=== PATIENT | female | born 1940 | race Caucasian/White ===

== ENCOUNTER 2016-06-24 14:26 | Inpatient (IN) | payer BC, OTHER ==
[2016-06-24 15:25] LABS: BASOPHIL 0.3 % (0-2.0); MCH 25.5 pg (25.7-33.7); MCHC 31.4 g/dl (32.0-36.0); MEAN CELL VOLUME 81.3 fl (80-96); MEAN PLT VOLUME 7.7 fl (7.5-11.1); NEUTROPHILS 66.2 % (42.8-82.8); PLATELET COUNT 259 K/MM3 (134-434); RDW 14.5 % (11.6-15.6); WHITE BLOOD COUNT 5.4 K/mm3 (4.0-10.0)
[2016-06-24 15:33] LABS: ALBUMIN 3.3 g/dl (3.5-5.0); CALCIUM 8.9 mg/dl (8.4-10.2); CPK(DFH) 29 IU/L (26-140); CREATININE 4.2 mg/dl (0.6-1.3); MAGNESIUM 2.1 mg/dL (1.8-2.4); TOT PROT 6.5 g/dl (6.4-8.3)
--- NOTE | 2016-06-24 15:44 | PDOC ---
History of Present Illness - General History Source: Patient, Family, Old Records Exam Limitations: No Limitations - History of Present Illness Initial Comments: 06/24/16 16:31 The patient is a 75 year old female with a significant past medical history of HTN & Right UPJO w/ atrophic kidney (s/p Stent placement on 02/11 and removal ), who presents to the emergency department today for further evaluation of elevated creatine s/p bloodwork. The patient notes that after stent removal she experienced right sided discomfort that has since resolved. The patient also notes that her elevated creatine is accompanied by increased leg weakness, nausea and vomiting since yesterday. She notes sick contact with a family member who had flu. She states after her sick contact she had some nasal and chest congestion but denies fever. The patient denies fever, chills, and sweats. The patient denies nausea, vomiting, and diarrhea. The patient denies chest pain, cough, and shortness of breath. PAST MEDICAL HISTORY: As per HPI PAST SURGICAL HISTORY: Appendectomy, Cholecystectomy FAMILY HISTORY: HTN, Kidney failure. 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) CVA: No COPD: No CHF: No Dementia: No Diabetes: No GI Disorders: No Disorders: Yes (stent to rt urethra) HTN: Yes Hypercholesterolemia: No Liver Disease: No Seizures: No Thyroid Disease: Yes - Surgical History Appendectomy: Yes Cholecystectomy: Yes - Psycho/Social/Smoking Cessation Hx Anxiety: No Suicidal Ideation: No Smoking History: Former smoker Have you smoked in the past 12 months: No If you are a former smoker, when did you quit?: 2005 Information on smoking cessation initiated: No Hx Alcohol Use: No Drug/Substance Use Hx: No Substance Use Type: None Hx Substance Use Treatment: No <Alvino Castillo Cora - Last Filed: 06/24/16 19:21> - Past Medical History Allergies/Adverse Reactions: Allergies Allergy/AdvReac Type Severity Reaction Status Date / Time Penicillins Allergy Intermediate rash Verified 06/24/16 14:35 Home Medications: Ambulatory Orders Escitalopram Oxalate [Lexapro -] 20 mg PO DAILY 02/11/16 Nebivolol HCl [Bystolic] 10 mg PO DAILY tablet 03/04/16 Aspirin [ASA -] 81 mg PO DAILY 04/15/16 Furosemide [Lasix -] 20 mg PO ASDIR 04/15/16 Azithromycin [Zithromax -] 250 mg PO DAILY 06/24/16 Review of Systems - Review of Systems Able to Perform ROS?: Yes Comments:: 06/24/16 16:43 CONSTITUTIONAL: Absent: Fever, Chills, Diaphoresis, Malaise, Loss of Appetite HEENT: Absent: Rhinorrhea, Nasal Congestion, Throat Pain, Throat Swelling, Difficulty Swallowing, Mouth Swelling, Ear Pain, Eye Pain, Visual Changes CARDIOVASCULAR: Absent: Chest Pain, Syncope, Palpitations, Irregular Heart Rate, Lightheadedness , Peripheral Edema RESPIRATORY: Absent: Cough, Shortness of Breath, SOB with Exertion, Orthopnea, Wheezing, Stridor, Hemoptysis GASTROINTESTINAL: Present: Nausea, Vomiting Absent: Abdominal pain, Abdominal Distension, Diarrhea, Constipation, Melena, Hematochezia GENITOURINARY: Absent: Dysuria, Frequency, Urgency, Hesitancy, Flank Pain, Genital Pain MUSCULOSKELETAL: Present: Increased leg weakness Absent: Myalgia, Arthralgia, Joint Swelling, Back pain, Neck Pain SKIN: Absent: Rash, Itching, PalloR HEMEATOLOGIC/IMMUNOLOGIC: Absent: Easy Bleeding, Easy Bruising, Lymphadenopathy, Frequent infections ENDOCRINE: Absent: Unexplained Weight Gain, Unexplained Weight Loss, Heat Intolerance, Cold Intolerance NEUROLOGIC: Absent: Headache, Focal Weakness, Paresthesias, Vertigo, Lightheadedness, Unsteady Gait, Seizure, Mental Status Changes, Incontinence PSYCHIATRIC: Absent: Anxiety, Depression <John Navarrete - Last Filed: 06/24/16 17:51> *Physical Exam - Vital Signs Last Vital Signs Temp Pulse Resp BP Pulse Ox 97.7 F 77 16 148/69 98 06/24/16 14:31 06/24/16 14:31 06/24/16 14:31 06/24/16 14:31 06/24/16 14:31 - Physical Exam Comments: 06/24/16 16:38 GENERAL: The patient is awake, alert, and fully oriented, in no acute distress. HEAD: Normal with no signs of trauma. EYES: Pupils equal, round and reactive to light, extraocular movements intact, sclera anicteric, conjunctiva clear. ENT: Ears normal, nares patent, oropharynx clear without exudates. Moist mucous membranes. NECK: Normal range of motion, supple without lymphadenopathy, JVD, or masses. LUNGS: Breath sounds equal, clear to auscultation bilaterally. No wheezes, and no crackles. HEART: Bradycardia, Regular rhythm, normal S1 and S2 without murmur, rub or gallop. ABDOMEN: Soft, nontender, normoactive bowel sounds. No guarding, no rebound. No masses. EXTREMITIES: Normal range of motion, no edema. No clubbing or cyanosis. No cords , erythema, or tenderness. NEUROLOGICAL: Cranial nerves II through XII grossly intact. Normal speech, normal gait. PSYCH: Normal mood, normal affect. SKIN: Warm, Dry, normal turgor, no rashes or lesions noted. <John Navarrete - Last Filed: 06/24/16 17:51> - Vital Signs Last Vital Signs Temp Pulse Resp BP Pulse Ox 97.7 F 77 16 148/69 98 06/24/16 14:31 06/24/16 14:31 06/24/16 14:31 06/24/16 14:31 06/24/16 14:31 <Alvino Castillo - Last Filed: 06/24/16 19:21> ED Treatment Course - LABORATORY CBC & Chemistry Diagram: 06/24/16 15:00 06/24/16 15:00 - ADDITIONAL ORDERS Additional order review: Laboratory Results 06/24/16 06/24/16 06/24/16 15:35 15:00 15:00 Sodium 135 L Potassium 3.9 Chloride 107 Carbon Dioxide 18 L Anion Gap 10 BUN 51 H Creatinine 4.2 H Creat Clearance w eGFR 10.37 Random Glucose 125 H Calcium 8.9 Magnesium 2.1 Total Bilirubin 0.3 AST 20 ALT 12 Alkaline Phosphatase 74 Creatine Kinase 29 Troponin I < 0.03 L Total Protein 6.5 Albumin 3.3 L Urine Color Yellow Urine Appearance Clear Urine pH 5.5 Ur Specific [place] 1.010 Urine Protein 1+ H Urine Glucose (UA) Negative Urine Ketones Negative Urine Blood Negative Urine Nitrite Negative Urine Bilirubin Negative Urine Urobilinogen 0.2 e.u/dl Ur Leukocyte Esterase Trace 06/24/16 15:00 RBC 3.79 MCV 81.3 MCHC 31.4 L RDW 14.5 MPV 7.7 Neutrophils % 66.2 Lymphocytes % 22.2 Monocytes % 9.3 Eosinophils % 2.0 Basophils % 0.3 - RADIOLOGY Radiograph Interpretation: 06/24/16 16:50 Renal ultrasound. Discussion: Compared to prior examination dated 02/02/2016. Right renal stent removed on 05/31/2016 The right kidney measures 12 cm in sagittal length with interval decrease in the degree of hydronephrosis that remains moderate to marked. Right renal pelvis is dilated measuring 4.8 cm in AP dimension Left kidney measures 7.4 cm in sagittal length with an exophytic cyst in its midportion measuring 2.8 cm in maximum dimension. Impression: Interval decreased right hydronephrosis that remains moderate to marked. Left renal cyst measuring 2.8 cm. <John Navarrete - Last Filed: 06/24/16 17:51> - LABORATORY CBC & Chemistry Diagram: 06/24/16 15:00 06/24/16 15:00 - ADDITIONAL ORDERS Additional order review: Laboratory Results 06/24/16 06/24/16 15:00 15:00 Sodium 135 L Potassium 3.9 Chloride 107 Carbon Dioxide 18 L Anion Gap 10 BUN 51 H Creatinine 4.2 H Creat Clearance w eGFR 10.37 Random Glucose 125 H Calcium 8.9 Magnesium 2.1 AST 20 ALT 12 Alkaline Phosphatase 74 Creatine Kinase 29 Total Protein 6.5 Albumin 3.3 L 06/24/16 15:00 RBC 3.79 MCV 81.3 MCHC 31.4 L RDW 14.5 MPV 7.7 Neutrophils % 66.2 Lymphocytes % 22.2 Monocytes % 9.3 Eosinophils % 2.0 Basophils % 0.3 - RADIOLOGY Radiology Studies Ordered: Category Date Time Status KIDNEY / RENAL US [US] Stat Ultrasound 06/24/16 14:40 Ordered <Alvino Castillo - Last Filed: 06/24/16 19:21> Medical Decision Making - Medical Decision Making 06/24/16 17:45 Dr. Pinzon called. Case discussed. Agreed to admit patient. <John Navarrete - Last Filed: 06/24/16 17:51> - Medical Decision Making 06/24/16 17:36 Patient history of chronic kidney disease, left kidney atrophic, right kidney with hydronephrosis. Patient had stent from several months ago, was removed in early May. Patient now with symptoms of uremia, generalized weakness, nausea, occasional vomiting, poor appetite, and poor sleep. On examination, the patient has no CVA tenderness and no abdominal tenderness. She has no edema. Ultrasound shows recurrent, significant, right hydronephrosis, although slightly less than previously it is still significant. Laboratory workup notable for creatinine elevated to greater than 4. No indications for acute dialysis. Sodium is 135, potassium is normal, mild non- anion gap acidosis. Patient may be treated with bicarbonate repletion. She will also be seen by urology for evaluation for repeat stenting. Impression: Progressive renal failure in the setting of atrophic left kidney and recurrent obstruction of the right kidney. Patient with symptomatic uremia. Patient to be admitted for urological consultation regarding possible repeat stenting. Also for nephrology consultation for progressive renal dysfunction. Patient will be admitted to the hospitalist service. 06/24/16 19:20 <Alvino Castillo - Last Filed: 06/24/16 19:21> *DC/Admit/Observation/Transfer - Attestations Scribe Attestion: 06/24/16 16:51 Documentation prepared by John Navarrete, acting as medical social consultant for Alvino Castillo MD. <John Navarrete - Last Filed: 06/24/16 17:51> - Discharge Dispostion Admit: Yes Decision to Admit order Date/Time: 06/24/16 17:39 Patient to be admitted to the hospitalist service. Consultations with nephrology and urology. Dr. Pinzon contacted and will consult. - Attestations Scribe Attestion: 06/24/16 17:40 The scribe's documentation has been prepared under my direction and personally reviewed by me in its entirety. I have confirmed that the note above accurately reflects all work, treatment, procedures, and medical decision- making performed by me. <Alvino Castillo - Last Filed: 06/24/16 19:21> Diagnosis at time of Disposition: Hydronephrosis due to ureteral stricture, Acute on chronic renal failure - Discharge Dispostion Condition at time of disposition: Fair
[2016-06-24 15:51] LABS: TROPONIN I (DFP) < 0.03 ng/ml (0.03-0.50)
[2016-06-24 15:52] LABS: BILIRUBIN,TOTAL 0.3 mg/dl (0.2-1.0)
--- NOTE | 2016-06-24 15:52 | EKG ---
Test Reason : Blood Pressure : / mmHG Vent. Rate : 054 BPM Atrial Rate : 054 BPM P-R Int : 184 ms QRS Dur : 084 ms QT Int : 428 ms P-R-T Axes : 035 000 053 degrees QTc Int : 405 ms POOR DATA QUALITY, INTERPRETATION MAY BE ADVERSELY AFFECTED SINUS BRADYCARDIA WHEN COMPARED WITH ECG OF 18-APR-2016 09:15, NO SIGNIFICANT CHANGE WAS FOUND Confirmed by MD KARINE, LUCIE ([id number]) on 06/24/2016 3:52:16 PM Referred By: JADON Confirmed By:LUCIE MILTON MD
[2016-06-24 16:19] LABS: PH,URINE 5.5 (4.5-8); URINE APPEARANCE Clear; URINE BILIRUBIN Negative (NEGATIVE); URINE BLOOD Negative (NEGATIVE); URINE GLUCOSE (UA) Negative (NEGATIVE); URINE KETONE Negative (NEGATIVE); URINE LEUK ESTERASE Trace (NEGATIVE); URINE NITRITE Negative (NEGATIVE); URINE UROBILINOGEN 0.2 E.U/dl (0.2-1.0)
[2016-06-24 16:20] LABS: URINE COLOR YELLOW; URINE PROTEIN 1+ (NEGATIVE)
[2016-06-24 16:51] LABS: URINE BACTERIA MODERATE /hpf (NEGATIVE); URINE RBC 0-2 /hpf (0-3)
[2016-06-24] MEDS ORDERED: SODIUM CHLORIDE 1,000 ML IV SCH (17:45)
[2016-06-24 18:56] VITALS: BMI 26.4
--- NOTE | 2016-06-24 22:24 | HP ---
CHIEF COMPLAINT: elevated creatinine PCP: [facility] urology: Jeromy HISTORY OF PRESENT ILLNESS: This is a 75 year old female with a past medical history of HTN, R UPJ obstruction s/p stent placement 02/12/16 removal 05/31/15, L atrophic kidney, anemia, asthma, AV leak, congenital "hole in heart", hypothyroidism who presents to the ED from her PMD office with elevated creatinine. Today was her first lab test since the stent was removed. She states that she gets right flank pain "off and on" but none now. Denies any dysuria, frequency or abdominal pain. Pt started on zithromax yesterday for URI. Reports productive cough, whitish phlegm. Denies fever, SOB, chest pain. ER course was notable for: (1) Cr 4.2 (2) u/a with tr leukesterase and moderate bacteria Recent Travel: pt denies PAST MEDICAL HISTORY: HTN, R UPJ obstruction s/ stent placement 02/12/16, exchange 05/16/16, removal 05/31/15 L atrophic kidney anemia asthma AV leak congenital "hole in heart" hypothyroidism PAST SURGICAL HISTORY: appendectomy cholecystectomy Social History: Smoking: Quit 2005, smoked 40 years, 1ppd Alcohol: occ wine or beer on special occasions Drugs: pt denies Family History: mother , s/p fall father , cirrhosis sibling , ESRD and heart disease Allergies Penicillins Allergy (Intermediate, Verified 06/24/16 14:35) rash HOME MEDICATIONS: 3 Medication Instructions Recorded Escitalopram Oxalate [Lexapro -] 20 mg PO DAILY 02/11/16 Nebivolol HCl [Bystolic] 10 mg PO DAILY tablet 03/04/16 Aspirin [ASA -] 81 mg PO DAILY 04/15/16 Furosemide [Lasix -] 20 mg PO ASDIR 04/15/16 Azithromycin [Zithromax -] 250 mg PO DAILY 06/24/16 REVIEW OF SYSTEMS CONSTITUTIONAL: Absent: fever, chills, diaphoresis, generalized weakness, malaise, loss of appetite, weight change HEENT: Absent: rhinorrhea, nasal congestion, throat pain, throat swelling, difficulty swallowing, mouth swelling, ear pain, eye pain, visual changes CARDIOVASCULAR: Absent: chest pain, syncope, palpitations, irregular heart rate, lightheadedness , peripheral edema RESPIRATORY: Present: cough Absent: shortness of breath, dyspnea with exertion, orthopnea, wheezing, stridor , hemoptysis GASTROINTESTINAL: Absent: abdominal pain, abdominal distension, nausea, vomiting, diarrhea, constipation, melena, hematochezia GENITOURINARY: Present: flank pain Absent: dysuria, frequency, urgency, hesitancy, hematuria, genital pain MUSCULOSKELETAL: Absent: myalgia, arthralgia, joint swelling, back pain, neck pain SKIN: Absent: rash, itching, pallor HEMATOLOGIC/IMMUNOLOGIC: Absent: easy bleeding, easy bruising, lymphadenopathy, frequent infections ENDOCRINE: Absent: unexplained weight gain, unexplained weight loss, heat intolerance, cold intolerance NEUROLOGIC: Absent: headache, focal weakness or paresthesias, dizziness, unsteady gait, seizure, mental status changes, bladder or bowel incontinence PSYCHIATRIC: Absent: anxiety, depression, suicidal or homicidal ideation, hallucinations. PHYSICAL EXAMINATION Vital Signs - 24 hr 3 06/24/16 06/24/16 06/24/16 14:31 17:45 18:28 Temperature 97.7 F 98.6 F Pulse Rate 77 54 L Pulse Rate [ 80 Apical] Respiratory 16 18 18 Rate Blood Pressure 148/69 162/65 Blood Pressure 140/64 [Arm] O2 Sat by Pulse 98 98 97 Oximetry (%) 3 06/24/16 22:33 Temperature 97.9 F Pulse Rate 50 L Pulse Rate [ Apical] Respiratory 18 Rate Blood Pressure 159/57 Blood Pressure [Arm] O2 Sat by Pulse 98 Oximetry (%) GENERAL: Awake, alert, and fully oriented, in no acute distress. HEAD: Normal with no signs of trauma. EYES: Pupils equal, round and reactive to light, extraocular movements intact, sclera anicteric, conjunctiva clear. No lid lag. EARS, NOSE, THROAT: Ears normal, nares patent, oropharynx clear without exudates. Moist mucous membranes. NECK: Normal range of motion, supple without lymphadenopathy, JVD, or masses. LUNGS: Breath sounds equal, clear to auscultation bilaterally. No crackles. No accessory muscle use. + expiratory wheeze, R>L HEART: Regular rate and rhythm, normal S1 and S2 without murmur, rub or gallop. ABDOMEN: Soft, nontender, not distended, normoactive bowel sounds, no guarding, no rebound, no masses. No hepatomegaly or splenomegaly. No CVAT MUSCULOSKELETAL: Normal range of motion at all joints. No bony deformities or tenderness. No CVA tenderness. UPPER EXTREMITIES: 2+ pulses, warm, well-perfused. No cyanosis. No clubbing. Cap refill <2 seconds. No peripheral edema. LOWER EXTREMITIES: 2+ pulses, warm, well-perfused. No calf tenderness. No peripheral edema. NEUROLOGICAL: Cranial nerves II-XII intact. Normal speech. Normal gait. PSYCHIATRIC: Cooperative. Good eye contact. Appropriate mood and affect. SKIN: Warm, dry, normal turgor, no rashes or lesions noted. Laboratory Results - last 24 hr 3 06/24/16 06/24/16 06/24/16 15:00 15:00 15:00 WBC 5.4 RBC 3.79 Hgb 9.7 L Hct 30.8 L MCV 81.3 MCHC 31.4 L RDW 14.5 Plt Count 259 MPV 7.7 Neutrophils % 66.2 Lymphocytes % 22.2 Monocytes % 9.3 Eosinophils % 2.0 Basophils % 0.3 Sodium 135 L Potassium 3.9 Chloride 107 Carbon Dioxide 18 L Anion Gap 10 BUN 51 H Creatinine 4.2 H Creat Clearance w eGFR 10.37 Random Glucose 125 H Calcium 8.9 Magnesium 2.1 Total Bilirubin 0.3 AST 20 ALT 12 Alkaline Phosphatase 74 Creatine Kinase 29 Troponin I < 0.03 L Total Protein 6.5 Albumin 3.3 L Urine Color Urine Appearance Urine pH Ur Specific [place] Urine Protein Urine Glucose (UA) Urine Ketones Urine Blood Urine Nitrite Urine Bilirubin Urine Urobilinogen Ur Leukocyte Esterase Urine RBC Urine WBC Ur Epithelial Cells Urine Bacteria 3 Urine Color Yellow 06/24/16 15:35 Urine Appearance Clear 06/24/16 15:35 Urine pH 5.5 (4.5-8) 06/24/16 15:35 Ur Specific [place] 1.010 (1.005-1.025) 06/24/16 15:35 Urine Protein 1+ (NEGATIVE) H 06/24/16 15:35 Urine Glucose (UA) Negative (NEGATIVE) 06/24/16 15:35 Urine Ketones Negative (NEGATIVE) 06/24/16 15:35 Urine Blood Negative (NEGATIVE) 06/24/16 15:35 Urine Nitrite Negative (NEGATIVE) 06/24/16 15:35 Urine Bilirubin Negative (NEGATIVE) 06/24/16 15:35 Ur Leukocyte Esterase Trace (NEGATIVE) 01/27/17 15:35 Urine RBC 0-2 /hpf (0-3) 06/24/16 15:35 Urine WBC 10-15 (3-5) 06/24/16 15:35 Ur Epithelial Cells Few /HPF 06/24/16 15:35 Urine Bacteria Moderate /hpf (NEGATIVE) 06/24/16 15:35 Renal ultrasound: Impression: Interval decreased right hydronephrosis that remains moderate to marked. Left renal cyst measuring 2.8cm. ECG: sinus margot 54, QTC 409. No acute ST/T changes. ASSESSMENT/PLAN: 75 year old female with a past medical history of HTN, R UPJ obstruction s/ stent placement 02/12/16 removal 05/31/15, L atrophic kidney, anemia, asthma, AV leak, congenital "hole in heart", hypothyroidism who presents to the ED from her PMD office with elevated creatinine. Acute kidney failure - cr 4.2, baseline in 2s since diagnosis of R UPJO - gentle IV hydration, repeat BMP in am - renal consult R UPJ obstruction - urology consult in AM - + bacturia noted, will give ceftriaxone 1g x 1, reassess need to continue in am per urology URI/acute bronchitis - albuterol nebs - cont zpak, 3 more doses. HTN - cont home bystolic, lasix hypothyroid - cont home synthroid FEN - NS @100cc/hr - repeat BMP in am - low sodium diet as tolerated DVT PPX - defer heparin as pt will likely need stent placement. start heparin tomorrow if not undergoing in am Dispo: pt currently requires inpatient care. Visit type - Emergency Visit Emergency Visit: Yes ED Registration Date: 06/24/16 Care time: The patient presented to the Emergency Department on the above date and was hospitalized for further evaluation of their emergent condition. - New Patient This patient is new to me today: Yes Date on this admission: 06/24/16 - Critical Care Critical Care patient: No
[2016-06-24] MEDS ORDERED: CEFTRIAXONE 50 ML IVPB ONE (23:30)
[2016-06-24] MEDS: ALBUTEROL SO4 0.083% IH SOL 2.5 MG/3 ML VIAL.NEB. NEB SCH (23:50)
[2016-06-25] MEDS: ALBUTEROL SO4 0.083% IH SOL 2.5 MG/3 ML VIAL.NEB. NEB SCH (06:27)
[2016-06-25] MEDS: LEVOTHYROXINE NA 50 MCG TABLET (FP) PO SCH (06:28)
[2016-06-25 08:36] LABS: CALCIUM 8.6 mg/dl (8.4-10.2); CREATININE 3.9 mg/dl (0.6-1.3); PHOSPHOROUS 3.6 mg/dl (2.5-4.6)
[2016-06-25 08:48] LABS: BASOPHIL 0.3 % (0-2.0); EOSINOPHIL 2.1 % (0-4.5); MCH 25.3 pg (25.7-33.7); MCHC 31.7 g/dl (32.0-36.0); MEAN CELL VOLUME 79.9 fl (80-96); MEAN PLT VOLUME 7.6 fl (7.5-11.1); NEUTROPHILS 61.7 % (42.8-82.8); PLATELET COUNT 229 K/MM3 (134-434); RDW 14.4 % (11.6-15.6); WHITE BLOOD COUNT 4.9 K/mm3 (4.0-10.0)
--- NOTE | 2016-06-25 09:57 | PN ---
Progress Note, Physician Chief Complaint: Renal Consultation Report The patient is a 75 year old female with a significant past medical history of HTN CKD with right UPJO and left atrophic kidney (s/p R Stent placement on and removal 05/31/16), and Valvular Heart Disease who was referred to ED by PMD, Dr Alicia for worsening azotemia associated with some right flank pain. Asked to evaluate for worsening renal function test. Pt was on Losartan and Lasix prior to admission Renal US shows a persistent Right hydronephrosis though better than in the past. Pt was not on NSAIDs in the recent past. Recently started on Z Will for URI. Had a bacteremia froma UTI in the recent past No diarrhea but had some N/V a few days ago The patient denies fever and sweats but had some chills PAST SURGICAL HISTORY: Appendectomy, Cholecystectomy, Removal of a Benign Right Breast Mass FAMILY HISTORY: HTN, Kidney failure. SOCIAL HISTORY: Former smoker ALLERGIES: Penicillin - Current Medication List Current Medications: Active Medications Albuterol Sulfate (Ventolin 0.083% Nebulizer Soln -) 1 amp NEB QIDR [facility] Last Admin: 06/25/16 06:27 Dose: 1 amp Azithromycin (Zithromax -) 250 mg PO DAILY [facility] Stop: 06/27/16 10:01 Escitalopram Oxalate (Lexapro -) 20 mg PO DAILY [facility] Sodium Chloride (Normal Saline -) 1,000 mls @ 100 mls/hr IV ASDIR [facility] Last Admin: 06/24/16 17:53 Dose: 100 mls/hr Levothyroxine Sodium (Synthroid -) 50 mcg PO ACBK [facility] Last Admin: 06/25/16 06:28 Dose: 50 mcg Nebivolol (Bystolic -) 10 mg PO DAILY [facility] Pantoprazole Sodium (Protonix -) 40 mg PO DAILY [facility] - Objective Vital Signs: Vital Signs Temperature 98.3 F 06/25/16 06:00 Pulse Rate 60 06/25/16 06:00 Respiratory Rate 19 06/25/16 06:00 Blood Pressure 159/60 06/25/16 06:00 O2 Sat by Pulse Oximetry (%) 93 L 06/25/16 06:00 Constitutional: Yes: No Distress Cardiovascular: Yes: Murmur (Systolic Murmur), S1, S2. No: JVD Respiratory: Yes: CTA Bilaterally, Rhonchi Gastrointestinal: Yes: Normal Bowel Sounds. No: Tenderness, Rebound Genitourinary: No: Bladder Distention Edema: No Neurological: Yes: Alert, Oriented Labs: CBC, BMP 06/25/16 07:35 06/25/16 07:35 Laboratory Tests 04/15/16 04/20/16 06/24/16 09:45 06:20 15:00 Creatinine 2.7 H 2.5 H 4.2 H 06/25/16 07:35 Creatinine 3.9 H Laboratory Tests 06/24/16 15:35 Urine Color Yellow Urine Appearance Clear Urine pH 5.5 Ur Specific [place] 1.010 Urine Protein 1+ H Urine Glucose (UA) Negative Urine Ketones Negative Urine Blood Negative Urine Nitrite Negative Urine Bilirubin Negative Urine Urobilinogen 0.2 e.u/dl Ur Leukocyte Esterase Trace Urine RBC 0-2 Urine WBC 10-15 Ur Epithelial Cells Few Urine Bacteria Moderate - ....Imaging Chest X-ray: Report Reviewed Ultrasound: Report Reviewed EKG: Other (Sinus Bradycardia) Assessment/Plan Impression Acute on CKD in pt that was on ARB, lasix, right hydronephrosis and small left Kidney Pyuria HTN Valvular Heart Disease Anemia microcytic Recent URI in former smoker and Asthma Hypothyroidism Plan Agree with holding the Arb and Lasix for now IVF as ordered UC and urine for Pro/ Cr ratio Urology to see pt Consider lasix Renal Scan if cystoscopy with retrograde pyelogram not jose f to be done May need to add a CCB Anemia w/u as per primary care and if negative to consider adding an TOBIN such as Procrit Rpt labs in am Avoid Nephrotoxic agent such as NSAIDs, Fleet Enemas, IV Contrast etc Bronchodilators CXR if not recently done Discussed with the hospitalist Thank You Will Follow Dr Vasquez
[2016-06-25] MEDS ORDERED: PANTOPRAZOLE 40 MG TABLET (FP) PO SCH (10:00)
[2016-06-25] MEDS ORDERED: ESCITALOPRAM OXALATE 20 MG TABLET (FP) PO SCH (10:00)
[2016-06-25] MEDS ORDERED: AZITHROMYCIN 250 MG TABLET (FP) PO SCH (10:00)
[2016-06-25] MEDS: NEBIVOLOL 10 MG TABLET (FP) PO SCH (10:42)
--- NOTE | 2016-06-25 13:51 | PN ---
Physical Exam: SUBJECTIVE: Patient seen and examined at bedside. OBJECTIVE: Vital Signs Period Temp Pulse Resp BP Sys/Rashid Pulse Ox Last 24 Hr 97.9 F-98.3 F 50-60 18-20 157-159/52-60 93-98 GENERAL: The patient is awake, alert, and fully oriented, in no acute distress. HEAD: Normal with no signs of trauma. EYES: PERRL, extraocular movements intact, sclera anicteric, conjunctiva clear. No ptosis. LUNGS: diffuse expiratory wheezing and rhonchi HEART: Regular rate and rhythm, S1, S2 without murmur, rub or gallop. ABDOMEN: Soft, nontender, nondistended, normoactive bowel sounds, no guarding, no rebound EXTREMITIES: 2+ pulses, warm, well-perfused, no edema. NEUROLOGICAL: Cranial nerves II through XII grossly intact. Normal speech, gait not observed. Laboratory Results - last 24 hr 06/25/16 06/25/16 07:35 07:35 WBC 4.9 RBC 3.45 L Hgb 8.7 L D Hct 27.6 L MCV 79.9 L MCHC 31.7 L RDW 14.4 Plt Count 229 MPV 7.6 Neutrophils % 61.7 Lymphocytes % 26.2 Monocytes % 9.7 Eosinophils % 2.1 Basophils % 0.3 Sodium 136 Potassium 3.9 Chloride 108 H Carbon Dioxide 17 L Anion Gap 11 BUN 48 H Creatinine 3.9 H Random Glucose 93 D Calcium 8.6 Phosphorus 3.6 Magnesium 2.0 Current Medications Generic Name Dose Route Start Last Admin Trade Name Freq PRN Reason Stop Dose Admin Albuterol/Ipratropium 1 amp 06/25/16 14:45 06/25/16 15:56 Duoneb - NEB 1 amp Q6H [facility] Administration Escitalopram Oxalate 20 mg 06/25/16 10:00 06/25/16 10:35 Lexapro - PO 20 mg DAILY [facility] Administration Ceftriaxone Sodium 1 gm/ 50 mls @ 100 mls/hr 06/25/16 14:15 06/25/16 15:56 Dextrose IVPB 100 mls/hr DAILY [facility] Administration Azithromycin 250 mg/ Dextrose 250 mls @ 250 mls/hr 06/26/16 10:00 IVPB 06/27/16 10:59 DAILY [facility] Levothyroxine Sodium 50 mcg 06/25/16 07:00 06/25/16 06:28 Synthroid - PO 50 mcg ACBK [facility] Administration Nebivolol 10 mg 06/25/16 10:00 06/25/16 10:42 Bystolic - PO 10 mg DAILY [facility] Administration Pantoprazole Sodium 40 mg 06/25/16 10:00 06/25/16 10:35 Protonix - PO 40 mg DAILY [facility] Administration Imaging US renal: interval decreased right hydronephrosis that remains moderate to marked; left renal cyst measuring 2.8 cm. ASSESSMENT/PLAN 75 year-old female with a PMH of HTN, CKD, congenital right ureteropelvic junction obstruction s/p stent placement 02/12/16 and removal 05/31/15, left atrophic kidney, hypothyroidism, and anxiety. Admitted for acute kidney injury. Acute kidney injury on chronic renal insufficiency Right hydronephrosis secondary to congenital right UPJ obstruction --Cr 4.2 on admission following removal of UPJ stent on 05/31/15 --US shows moderate to marked right-sided hydronephrosis --discussed with renal and urology, ordered lasix renal scan --stopped IV fluids due to heart failure Diastolic heart failure, --04/18/16 Echo: LV normal; RV normal; moderate MR; trace PI; +pleural effusion (not specified) --pulmonary congestion on exam and CXR; concerned that during March 2016 hospitalization patient went into respiratory failure and needed to be intubated when she received IV fluids and became volume overloaded --stop IV fluids; try to avoid diuretics due to renal failure but will need to monitor respiratory status closely r/o pneumonia --CXR shows possible infiltrates but afebrile and no leukocytosis --patient had been started on azithromycin by PCP prior to admission, finish the course --empiric ceftriaxone Pyuria --urine with 10-15 WBCs --culture pending --treated for E.coli UTI in March 2016 --continue empiric ceftriaxone Hypothyrodism --continue levothyroxine Anxiety --continue Lexapro F/E/N Fluids: hold IV fluids Electrolytes: replete as indicated Nutrition: low sodium DVT prophylaxis: subq heparin, oob, ambulation Rehab PT eval Daily PT Dispo: continues to require inpatient care. Full code. Visit type - Emergency Visit Emergency Visit: Yes ED Registration Date: 06/24/16 Care time: The patient presented to the Emergency Department on the above date and was hospitalized for further evaluation of their emergent condition. - New Patient This patient is new to me today: Yes Date on this admission: 06/25/16 - Critical Care Critical Care patient: No
[2016-06-25] MEDS ORDERED: CEFTRIAXONE 1 GM in DEXTROSE 5%-WATER - 50 ML IVPB SCH (14:15)
[2016-06-25] MEDS: ALBUTEROL SO4 2.5/IPRATROPIUM 0.5 INH SOL 3 ML VIAL.NEB. NEB SCH ×2 (15:56→21:41)
[2016-06-25] MEDS ORDERED: ALBUTEROL SO4 2.5/IPRATROPIUM 0.5 INH SOL 3 ML VIAL.NEB. NEB ONE (21:40)
[2016-06-25] MEDS: HEPARIN NA (PORCINE) 5,000 UNITS/ML 1ML VIAL SQ SCH (22:32)
[2016-06-26] MEDS ORDERED: ALBUTEROL SO4 2.5/IPRATROPIUM 0.5 INH SOL 3 ML VIAL.NEB. NEB ONE ×3 (03:58→09:22)
[2016-06-26] MEDS: ALBUTEROL SO4 2.5/IPRATROPIUM 0.5 INH SOL 3 ML VIAL.NEB. NEB SCH ×4 (03:59→22:35)
[2016-06-26] MEDS: LEVOTHYROXINE NA 50 MCG TABLET (FP) PO SCH (07:00)
[2016-06-26 07:55] LABS: BASOPHIL 0.2 % (0-2.0); EOSINOPHIL 1.7 % (0-4.5); MCH 25.4 pg (25.7-33.7); MCHC 31.2 g/dl (32.0-36.0); MEAN CELL VOLUME 81.4 fl (80-96); MEAN PLT VOLUME 8.2 fl (7.5-11.1); NEUTROPHILS 73.4 % (42.8-82.8); PLATELET COUNT 235 K/MM3 (134-434); RDW 14.6 % (11.6-15.6); WHITE BLOOD COUNT 6.3 K/mm3 (4.0-10.0)
[2016-06-26 08:01] LABS: ALBUMIN 3.2 g/dl (3.5-5.0); BILIRUBIN,TOTAL 0.4 mg/dl (0.2-1.0); CALCIUM 8.7 mg/dl (8.4-10.2); CREATININE 4.1 mg/dl (0.6-1.3); MAGNESIUM 2.1 mg/dL (1.8-2.4); TOT PROT 6.4 g/dl (6.4-8.3)
[2016-06-26] MEDS ORDERED: FUROSEMIDE 40 MG/4 ML INJECTABLE VIAL IVPUSH ONE (09:17)
--- NOTE | 2016-06-26 09:25 | PN ---
Progress Note, Physician Chief Complaint: Renal f/u Pt developed a worsening cough with dyspnea and now has some wheezing CXR suggested LLL atelectasis with increased lung marking and mediastinum therefore IVF stopped yesterday Still to be seen by urology however Lasix Renal Scan ordered - Current Medication List Current Medications: Active Medications Albuterol/Ipratropium (Duoneb -) 1 amp NEB Q6H [facility] Last Admin: 06/26/16 03:59 Dose: 1 amp Escitalopram Oxalate (Lexapro -) 20 mg PO DAILY [facility] Last Admin: 06/25/16 10:35 Dose: 20 mg Heparin Sodium (Porcine) (Heparin -) 5,000 unit SQ BID [facility] Last Admin: 06/25/16 22:32 Dose: 5,000 unit Ceftriaxone Sodium 1 gm/ (Dextrose) 50 mls @ 100 mls/hr IVPB DAILY [facility] Last Admin: 06/25/16 15:56 Dose: 100 mls/hr Azithromycin 250 mg/ Dextrose 250 mls @ 250 mls/hr IVPB DAILY [facility] Stop: 06/27/16 10:59 Levothyroxine Sodium (Synthroid -) 50 mcg PO ACBK [facility] Last Admin: 06/26/16 07:00 Dose: 50 mcg Nebivolol (Bystolic -) 10 mg PO DAILY [facility] Last Admin: 06/25/16 10:42 Dose: 10 mg Pantoprazole Sodium (Protonix -) 40 mg PO DAILY [facility] Last Admin: 06/25/16 10:35 Dose: 40 mg - Objective Vital Signs: Vital Signs Temperature 97.6 F 06/26/16 06:17 Pulse Rate 69 06/26/16 06:17 Respiratory Rate 18 06/26/16 06:17 Blood Pressure 169/65 06/26/16 06:17 O2 Sat by Pulse Oximetry (%) 94 L 06/26/16 06:17 Constitutional: Yes: Calm, Mild Distress Cardiovascular: Yes: Murmur, S1, S2 Respiratory: Yes: Rhonchi, Other (End expiratory wheezing) Gastrointestinal: Yes: Soft. No: Tenderness, Rebound Edema: No Labs: CBC, BMP 06/26/16 05:45 06/26/16 05:45 Assessment/Plan Impression Cough with some dyspnea in pt h/o valvular heart disease ,smoking and Asthma. In addition pt has atelectasis and had a recent URI Acute on CKD in pt that was on ARB, lasix, right hydronephrosis and small left Kidney Pyuria with negative UC as of this am HTN Anemia microcytic Hypothyroidism Plan Lasix 40 mgs IV X1 Albuterol and Atrovent X1 via nebulizer now Agree with D/C of the IVF and holding the ARB UC and urine for Pro/ Cr ratio still pending ABG on rm air just drawn and sent Lasix Renal Scan Urology opinion May need to add a CCB if BP systolic remains high post IV lasix Anemia w/u as per primary care and if negative to consider adding an TOBIN such as Procrit if iron stores, Vit B12 and Folate stores are adequate Consider pulmonary evaluation Avoid Nephrotoxic agent such as NSAIDs, Fleet Enemas, IV Contrast etc Rpt labs in am Discussed with the hospitalist Dr Vasquez
[2016-06-26] MEDS: HEPARIN NA (PORCINE) 5,000 UNITS/ML 1ML VIAL SQ SCH ×2 (09:28→22:35)
[2016-06-26] MEDS: NEBIVOLOL 10 MG TABLET (FP) PO SCH (09:28)
[2016-06-26] MEDS ORDERED: SODIUM CHLORIDE 1,000 ML IV SCH (09:45)
[2016-06-26] MEDS ORDERED: CEFTRIAXONE 50 ML IVPB ONE (09:45)
[2016-06-26] MEDS ORDERED: NEBIVOLOL 10 MG TABLET (FP) PO SCH (10:00)
[2016-06-26] MEDS ORDERED: AZITHROMYCIN 250 MG TABLET (FP) PO SCH (10:00)
[2016-06-26] MEDS ORDERED: AZITHROMYCIN IVPB 250 MG in DEXTROSE 5%-WATER - 250 ML IVPB SCH (10:00)
[2016-06-26] MEDS: PANTOPRAZOLE 40 MG TABLET (FP) PO SCH (10:30)
[2016-06-26] MEDS: ESCITALOPRAM OXALATE 20 MG TABLET (FP) PO SCH (10:30)
[2016-06-26] MEDS: CEFTRIAXONE 1 GM in DEXTROSE 5%-WATER - 50 ML IVPB SCH (10:31)
[2016-06-26] MEDS: AZITHROMYCIN IVPB 250 MG in DEXTROSE 5%-WATER - 250 ML IVPB SCH (10:31)
[2016-06-26 11:57] LABS: URINE CREATININE 81.1 mg/dL
[2016-06-26] MEDS ORDERED: ALBUTEROL SO4 0.083% IH SOL 2.5 MG/3 ML VIAL.NEB. NEB SCH (12:00)
--- NOTE | 2016-06-26 12:00 | PN ---
Physical Exam: SUBJECTIVE: Patient seen and examined. Breathing feels better since lasix this morning. OBJECTIVE: Vital Signs Period Temp Pulse Resp BP Sys/Rashid Pulse Ox Last 24 Hr 97.6 F-99.5 F 65-70 16-24 141-169/54-66 94-96 GENERAL: The patient is awake, alert, and fully oriented, in no acute distress. HEAD: Normal with no signs of trauma. EYES: PERRL, extraocular movements intact, sclera anicteric, conjunctiva clear. No ptosis. LUNGS: crackles bilaterally care home up; no wheezing, no rhonchi; much improved HEART: Regular rate and rhythm, S1, S2 without murmur, rub or gallop. ABDOMEN: Soft, nontender, nondistended, normoactive bowel sounds, no guarding, no rebound EXTREMITIES: 2+ pulses, warm, well-perfused, no edema. NEUROLOGICAL: Cranial nerves II through XII grossly intact. Normal speech, gait not observed. Laboratory Results - last 24 hr 06/25/16 06/26/16 06/26/16 16:00 05:45 05:45 WBC 6.3 RBC 3.47 L Hgb 8.8 L Hct 28.2 L MCV 81.4 MCHC 31.2 L RDW 14.6 Plt Count 235 MPV 8.2 Neutrophils % 73.4 Lymphocytes % 15.5 D Monocytes % 9.2 Eosinophils % 1.7 Basophils % 0.2 Anticoagulation Therapy O2 Delivery Device Oxygen Flow Rate Vent Mode Vent Rate Mechanical Rate Pressure Support Vent Sodium 136 Potassium 4.7 D Chloride 106 Carbon Dioxide 18 L Anion Gap 12 BUN 44 H Creatinine 4.1 H Creat Clearance w eGFR 10.67 Random Glucose 94 Calcium 8.7 Magnesium 2.1 Total Bilirubin 0.4 D AST 16 ALT 13 Alkaline Phosphatase 76 Total Protein 6.4 Albumin 3.2 L U Random Total Protein Cancelled Urine Creatinine Cancelled Protein/Creatinin Ratio Cancelled 06/26/16 06/26/16 06:30 09:50 WBC RBC Hgb Hct MCV MCHC RDW Plt Count MPV Neutrophils % Lymphocytes % Monocytes % Eosinophils % Basophils % Anticoagulation Therapy Y O2 Delivery Device Y Oxygen Flow Rate Y Vent Mode Y Vent Rate Y Mechanical Rate Y Pressure Support Vent Y Sodium Potassium Chloride Carbon Dioxide Anion Gap BUN Creatinine Creat Clearance w eGFR Random Glucose Calcium Magnesium Total Bilirubin AST ALT Alkaline Phosphatase Total Protein Albumin U Random Total Protein 41 H Urine Creatinine 81.1 Protein/Creatinin Ratio Current Medications Generic Name Dose Route Start Last Admin Trade Name Freq PRN Reason Stop Dose Admin Albuterol/Ipratropium 1 amp 06/26/16 09:45 06/26/16 09:50 Duoneb - NEB Not Given Q6H [facility] Escitalopram Oxalate 20 mg 06/26/16 10:00 06/26/16 10:30 Lexapro - PO 20 mg DAILY [facility] Administration Heparin Sodium (Porcine) 5,000 unit 06/25/16 22:00 06/26/16 09:28 Heparin - SQ 5,000 unit BID [facility] Administration Ceftriaxone Sodium 1 gm/ 50 mls @ 100 mls/hr 06/26/16 10:00 06/26/16 10:31 Dextrose IVPB 100 mls/hr DAILY [facility] Administration Azithromycin 250 mg/ Dextrose 250 mls @ 250 mls/hr 06/26/16 10:00 06/26/16 10: 31 IVPB 06/27/16 10:59 250 mls/hr DAILY [facility] Administration Levothyroxine Sodium 50 mcg 06/27/16 07:00 Synthroid - PO ACBK [facility] Nebivolol 10 mg 06/26/16 10:00 06/26/16 10:30 Bystolic - PO 10 mg DAILY [facility] Administration Pantoprazole Sodium 40 mg 06/26/16 10:00 06/26/16 10:30 Protonix - PO 40 mg DAILY [facility] Administration Imaging US renal: interval decreased right hydronephrosis that remains moderate to marked; left renal cyst measuring 2.8 cm. Echo 04/18/16: LV normal; RV normal; moderate MR; trace PI; pleural effusion ASSESSMENT/PLAN 75 year-old female with a PMH of HTN, CKD, congenital right ureteropelvic junction obstruction s/p stent placement 02/12/16 and removal 05/31/15, left atrophic kidney, hypothyroidism, and anxiety. Admitted for acute kidney injury. Acute kidney injury on chronic renal insufficiency Right hydronephrosis secondary to congenital right UPJ obstruction --Cr 4.1 --US shows moderate to marked right-sided hydronephrosis --Lasix renal scan pending --no IV fluids due to respiratory status Diastolic heart failure, chronic Pulmonary congestion --lasix 40mg IV given this morning and UOP >2L; lung exam is much improved, wheezing and rhonchi resolved --continue Lasix Prn Hypertension --BP is elevated --is on bystolic; had been on losartan but was stopped awhile ago due to renal failure; increase bystolic to 20mg daily --cardiology consult requested, discussed with Dr. Colby r/o pneumonia --CXR shows possible infiltrates but afebrile and no leukocytosis --patient had been started on azithromycin by PCP prior to admission, finish the course --empiric ceftriaxone Pyuria --urine with 10-15 WBCs --culture pending --treated for E.coli UTI in March 2016 --continue empiric ceftriaxone Hypothyrodism --continue levothyroxine Anxiety --continue Lexapro F/E/N Fluids: hold IV fluids Electrolytes: replete as indicated Nutrition: low sodium DVT prophylaxis: subq heparin, oob, ambulation Rehab PT eval Daily PT Dispo: continues to require inpatient care. Full code. Visit type - Emergency Visit Emergency Visit: Yes ED Registration Date: 06/24/16 Care time: The patient presented to the Emergency Department on the above date and was hospitalized for further evaluation of their emergent condition. - New Patient This patient is new to me today: No - Critical Care Critical Care patient: No
[2016-06-26] MEDS ORDERED: NEBIVOLOL 10 MG TABLET (FP) PO ONE (13:33)
[2016-06-27] MEDS: LEVOTHYROXINE NA 50 MCG TABLET (FP) PO SCH (07:02)
--- NOTE | 2016-06-27 07:57 | CON.CARD ---
Consult Consult Specialty:: Cardiology Referred by:: Hospitalist Medicine Reason for Consultation:: HTN management - History of Present Illness Chief Complaint: Dyspnea, cough History of Present Illness: This is a 75 year old female with a past medical history of HTN, R UPJ obstruction s/p stent placement 02/12/16 removal 05/31/15, L atrophic kidney, anemia, asthma, AV leak, congenital "hole in heart", hypothyroidism hospitalized for acute in CKD. She developed dyspnea, cough wheezing, IVF d/kurt , denies near or true syncope, palpitations, orthopnea, PND or LE edema, sxs improved with diuresis. - History Source History Provided By: Patient Limitations to Obtaining History: No Limitations - Past Medical History Renal/: Yes: Renal Inusuff, UTI ...: No - Alcohol/Substance Use Hx Alcohol Use: No - Smoking History Smoking history: Former smoker Have you smoked in the past 12 months: No Aproximately how many cigarettes per day: 0 If you are a former smoker, when did you quit?: 2005 Home Medications - Allergies Allergies/Adverse Reactions: Allergies Allergy/AdvReac Type Severity Reaction Status Date / Time Penicillins Allergy Intermediate rash Verified 06/24/16 14:35 - Home Medications Home Medications: Ambulatory Orders Escitalopram Oxalate [Lexapro -] 20 mg PO DAILY 02/11/16 Nebivolol HCl [Bystolic] 10 mg PO DAILY tablet 03/04/16 Aspirin [ASA -] 81 mg PO DAILY 04/15/16 Furosemide [Lasix -] 20 mg PO ASDIR 04/15/16 Azithromycin [Zithromax -] 250 mg PO DAILY 06/24/16 Review of Systems - Review of Systems Cardiovascular: reports: Shortness of Breath Respiratory: reports: Cough, Wheezing Vital Signs: Vital Signs Temperature 99.0 F 06/27/16 05:56 Pulse Rate 77 06/27/16 05:56 Respiratory Rate 18 06/27/16 05:56 Blood Pressure 164/77 06/27/16 05:56 O2 Sat by Pulse Oximetry (%) 96 06/27/16 05:56 Constitutional: Yes: No Distress, Calm Neck: Yes: Supple Respiratory: Yes: Regular, Diminished Gastrointestinal: Yes: Normal Bowel Sounds, Soft Cardiovascular: Yes: Regular Rate and Rhythm JVD: No Carotid Bruit: No Heart Sounds: Yes: S1, S2 Murmur: Yes: Systolic Murmur, Grade 2 Edema: No - Other Data Labs, Other Data: CBC, BMP 06/26/16 05:45 06/26/16 05:45 NSR @ [address]-T changes Ejection Fraction %: LVEF > or = 40 % Imaging - Results Chest X-ray: Report Reviewed (Interim developed right base infiltrates, left base ATX) Assessment/Plan Imaging US renal: interval decreased right hydronephrosis that remains moderate to marked; left renal cyst measuring 2.8 cm. Echo 04/18/16: LV normal; RV normal; moderate MR; trace PI; pleural effusion 1. Pre-op CV evaluation prior to right ureteral stent placement for right hydronephrosis secondary to congenital right UPJ obstruction 2. Acute on chronic diastolic failure with underlying mod MR improved 3. HTN/HCVD 4. Acute on CKD 5. Acute bronchitis 6. Anemia of CKD 7. Hypothyroidism P:1. Check BNP, agree with d/c IVF, continue diuretics, increased Bystolic 20 qd , consider addition of CCB for further BP control 2. BD. abx, course, O2 as needed, f/u ABG already drawn 3. Monitor renal fxn, Lasix renal scan pending, ARB held pending renal fxn stabilization 4. Given improvement of CHF symptoms and BP, and absence of sxs of acute coronary syndrome or malignant arrhythmia, may proceed with urologic procedure from CV standpoint 5. Thank you for consultative opportunity
--- NOTE | 2016-06-27 08:26 | PN ---
Progress Note (short form) - Note Progress Note: Imaging US renal: interval decreased right hydronephrosis that remains moderate to marked; left renal cyst measuring 2.8 cm. Echo 04/18/16: LV normal; RV normal; moderate MR; trace PI; pleural effusion 1. Pre-op CV evaluation prior to right ureteral stent placement for right hydronephrosis secondary to congenital right UPJ obstruction 2. Acute on chronic diastolic failure with underlying mod MR improved 3. HTN/HCVD 4. Acute on CKD 5. Acute bronchitis 6. Anemia of CKD 7. Hypothyroidism P:1. Check BNP and TSH, agree with d/c IVF, continue diuretics, increased Bystolic 20 qd, consider addition of CCB for further BP control 2. BD. abx, course, O2 as needed, f/u ABG already drawn 3. Monitor renal fxn, Lasix renal scan pending, ARB held pending renal fxn stabilization 4. Given improvement of CHF symptoms and BP, and absence of sxs of acute coronary syndrome or malignant arrhythmia, may proceed with urologic procedure from CV standpoint 5. Thank you for consultative opportunity Problem List - Problems (1) Acute on chronic renal failure Code(s): N17.9 - ACUTE KIDNEY FAILURE, UNSPECIFIED N18.9 - CHRONIC KIDNEY DISEASE, UNSPECIFIED (2) Hydronephrosis due to ureteral stricture Code(s): N13.1 - HYDRONEPHROSIS W URETERAL STRICTURE, NEC (3) Acute on chronic diastolic (congestive) heart failure Code(s): I50.33 - ACUTE ON CHRONIC DIASTOLIC (CONGESTIVE) HEART FAILURE (4) Hypertensive cardiomyopathy Code(s): I11.9 - HYPERTENSIVE HEART DISEASE WITHOUT HEART FAILURE I42.9 - CARDIOMYOPATHY, UNSPECIFIED Qualifiers: Heart failure presence: with heart failure Qualified Code(s): I11.0 - Hypertensive heart disease with heart failure (5) Hypothyroidism Code(s): E03.9 - HYPOTHYROIDISM, UNSPECIFIED (6) Anemia Code(s): D64.9 - ANEMIA, UNSPECIFIED Qualifiers: Other causes of anemia: chronic disease, kidney (7) Pre-operative cardiovascular examination Code(s): Z01.810 - ENCOUNTER FOR PREPROCEDURAL CARDIOVASCULAR EXAMINATION
[2016-06-27 08:43] LABS: BASOPHIL 0.4 % (0-2.0); EOSINOPHIL 4.7 % (0-4.5); MCH 25.8 pg (25.7-33.7); MCHC 31.6 g/dl (32.0-36.0); MEAN CELL VOLUME 81.7 fl (80-96); MEAN PLT VOLUME 7.8 fl (7.5-11.1); NEUTROPHILS 57.9 % (42.8-82.8); PLATELET COUNT 273 K/MM3 (134-434); RDW 14.5 % (11.6-15.6)
[2016-06-27 09:02] LABS: ALBUMIN 3.4 g/dl (3.5-5.0); BILIRUBIN,TOTAL 0.5 mg/dl (0.2-1.0); CALCIUM 9.1 mg/dl (8.4-10.2); CREATININE 4.4 mg/dl (0.6-1.3); PHOSPHOROUS 4.1 mg/dl (2.5-4.6); TOT PROT 6.9 g/dl (6.4-8.3)
[2016-06-27] MEDS ORDERED: PT OWN MED DRAWER 7, Y5N ONE ×2 (09:10→21:01)
[2016-06-27] MEDS: HEPARIN NA (PORCINE) 5,000 UNITS/ML 1ML VIAL SQ SCH ×2 (09:20→21:17)
[2016-06-27] MEDS: TORSEMIDE 20 MG TABLET (FP) PO SCH ×2 (09:20→09:31)
[2016-06-27] MEDS: NEBIVOLOL 10 MG TABLET (FP) PO SCH (09:21)
[2016-06-27] MEDS: ESCITALOPRAM OXALATE 20 MG TABLET (FP) PO SCH (09:22)
[2016-06-27] MEDS: PANTOPRAZOLE 40 MG TABLET (FP) PO SCH (09:22)
[2016-06-27] MEDS: CEFTRIAXONE 1 GM in DEXTROSE 5%-WATER - 50 ML IVPB SCH (09:22)
[2016-06-27] MEDS: AZITHROMYCIN IVPB 250 MG in DEXTROSE 5%-WATER - 250 ML IVPB SCH (09:22)
--- NOTE | 2016-06-27 10:39 | EKG ---
Test Reason : Blood Pressure : / mmHG Vent. Rate : 073 BPM Atrial Rate : 073 BPM P-R Int : 190 ms QRS Dur : 082 ms QT Int : 384 ms P-R-T Axes : 044 027 054 degrees QTc Int : 423 ms NORMAL SINUS RHYTHM NORMAL ECG WHEN COMPARED WITH ECG OF 24-JUN-2016 14:52, NO SIGNIFICANT CHANGE WAS FOUND Confirmed by DOROTA RODRIGUEZ MD ([id number]) on 06/27/2016 10:39:28 AM Referred By: Confirmed By:DOROTA RODRIGUEZ MD
[2016-06-27] MEDS: ALBUTEROL SO4 2.5/IPRATROPIUM 0.5 INH SOL 3 ML VIAL.NEB. NEB SCH ×3 (11:10→21:17)
--- NOTE | 2016-06-27 12:32 | PN ---
Progress Note, Physician History of Present Illness: Pt seen and examined at bedside. She is awake and alert. She feels that her breathing is improved slightly today. She denies chest pain. She denies dysuria or hematuria. - Current Medication List Current Medications: Active Medications Albuterol/Ipratropium (Duoneb -) 1 amp NEB Q6H [facility] Last Admin: 06/27/16 11:10 Dose: 1 amp Escitalopram Oxalate (Lexapro -) 20 mg PO DAILY [facility] Last Admin: 06/27/16 09:22 Dose: 20 mg Heparin Sodium (Porcine) (Heparin -) 5,000 unit SQ BID [facility] Last Admin: 06/27/16 09:20 Dose: 5,000 unit Ceftriaxone Sodium 1 gm/ (Dextrose) 50 mls @ 100 mls/hr IVPB DAILY [facility] Last Admin: 06/27/16 09:22 Dose: 100 mls/hr Levothyroxine Sodium (Synthroid -) 50 mcg PO ACBK [facility] Last Admin: 06/27/16 07:02 Dose: 50 mcg Nebivolol (Bystolic -) 20 mg PO DAILY [facility] Last Admin: 06/27/16 09:21 Dose: 20 mg Pantoprazole Sodium (Protonix -) 40 mg PO DAILY [facility] Last Admin: 06/27/16 09:22 Dose: 40 mg Torsemide (Demadex -) 20 mg PO DAILY [facility] Last Admin: 06/27/16 09:31 Dose: Not Given - Objective Vital Signs: Vital Signs Temperature 99.0 F 06/27/16 05:56 Pulse Rate 74 06/27/16 09:16 Respiratory Rate 18 06/27/16 09:16 Blood Pressure 153/64 06/27/16 09:16 O2 Sat by Pulse Oximetry (%) 97 06/27/16 09:19 Constitutional: Yes: Calm Eyes: Yes: Conjunctiva Clear HENT: Yes: Atraumatic Neck: Yes: Supple Cardiovascular: Yes: S1, S2 Respiratory: Yes: Diminished Gastrointestinal: Yes: Soft Genitourinary: Yes: WNL Musculoskeletal: Yes: WNL Edema: No Neurological: Yes: Oriented Psychiatric: Yes: Oriented Labs: CBC, BMP 06/27/16 08:00 06/27/16 08:00 - ....Imaging Chest X-ray: Report Reviewed Ultrasound: Report Reviewed (right hydro) Problem List - Problems (1) Acute on chronic diastolic (congestive) heart failure Code(s): I50.33 - ACUTE ON CHRONIC DIASTOLIC (CONGESTIVE) HEART FAILURE (2) Acute on chronic renal failure Code(s): N17.9 - ACUTE KIDNEY FAILURE, UNSPECIFIED N18.9 - CHRONIC KIDNEY DISEASE, UNSPECIFIED (3) Anemia Code(s): D64.9 - ANEMIA, UNSPECIFIED Qualifiers: Other causes of anemia: chronic disease, kidney (4) Hydronephrosis due to ureteral stricture Code(s): N13.1 - HYDRONEPHROSIS W URETERAL STRICTURE, NEC Assessment/Plan Current Medications Generic Name Dose Route Start Last Admin Trade Name Freq PRN Reason Stop Dose Admin Albuterol/Ipratropium 1 amp 06/26/16 09:45 06/27/16 11:10 Duoneb - NEB 1 amp Q6H [facility] Administration Escitalopram Oxalate 20 mg 06/26/16 10:00 06/27/16 09:22 Lexapro - PO 20 mg DAILY [facility] Administration Heparin Sodium (Porcine) 5,000 unit 06/25/16 22:00 06/27/16 09:20 Heparin - SQ 5,000 unit BID [facility] Administration Ceftriaxone Sodium 1 gm/ 50 mls @ 100 mls/hr 06/26/16 10:00 06/27/16 09:22 Dextrose IVPB 100 mls/hr DAILY [facility] Administration Levothyroxine Sodium 50 mcg 06/27/16 07:00 06/27/16 07:02 Synthroid - PO 50 mcg ACBK [facility] Administration Nebivolol 20 mg 06/27/16 10:00 06/27/16 09:21 Bystolic - PO 20 mg DAILY [facility] Administration Pantoprazole Sodium 40 mg 06/26/16 10:00 06/27/16 09:22 Protonix - PO 40 mg DAILY [facility] Administration Torsemide 20 mg 06/27/16 10:00 06/27/16 09:31 Demadex - PO Not Given DAILY [facility] Laboratory Tests 06/26/16 06:30 Protein/Creatinin Ratio 0.5 Impression 1. ZAC 2. CKD 3. hydronephrosis 4. HTN 5. CHF 6. anemia 7. hypothyroidism 8. Pyuria Plan - follow up lasix scan - urology evalaution - will send out prelim renal workup - held torsemide as pt with get lasix with scan - keep off of fluids for now - cxr reviewed - monitor BP - will check iron levels - avoid Nephrotoxic agent such as NSAIDs please
--- NOTE | 2016-06-27 14:09 | PN ---
Physical Exam: SUBJECTIVE: Patient seen and examined, reports feeling better, reports breathing has improved OBJECTIVE: patient is a 75 year-old female with a PMH of HTN, CKD, congenital right ureteropelvic junction obstruction s/p stent placement 02/12/16 and removal 05/31/15, left atrophic kidney, hypothyroidism, and anxiety. Admitted for acute kidney injury. Vital Signs Period Temp Pulse Resp BP Sys/Rashid Pulse Ox Last 24 Hr 98.2 F-99.0 F 61-77 16-20 133-165/50-77 96-100 GENERAL: The patient is awake, alert, and fully oriented, in no acute distress. HEAD: Normal with no signs of trauma. EYES: PERRL, extraocular movements intact, sclera anicteric, conjunctiva clear. No ptosis. ENT: Ears normal, nares patent, oropharynx clear without exudates, moist mucous membranes. NECK: Trachea midline, full range of motion, supple. LUNGS: Breath sounds equal, billateral inspiratory wheeze, diminished to bases, no crackles, no accessory muscle use. HEART: Regular rate and rhythm, S1, S2 without murmur, rub or gallop. ABDOMEN: Soft, nontender, nondistended, normoactive bowel sounds, no guarding, no rebound, no hepatosplenomegaly, no masses. EXTREMITIES: 2+ pulses, warm, well-perfused, no edema. NEUROLOGICAL: Cranial nerves II through XII grossly intact. Normal speech, gait not observed. PSYCH: Normal mood, normal affect. SKIN: Warm, dry, normal turgor, no rashes or lesions noted Laboratory Results - last 24 hr 06/27/16 06/27/16 06/27/16 08:00 08:00 08:00 WBC 5.0 RBC 3.58 L Hgb 9.3 L Hct 29.3 L MCV 81.7 MCHC 31.6 L RDW 14.5 Plt Count 273 MPV 7.8 Neutrophils % 57.9 D Lymphocytes % 25.9 D Monocytes % 11.1 H Eosinophils % 4.7 H D Basophils % 0.4 Sodium 136 Potassium 4.0 Chloride 104 Carbon Dioxide 19 L Anion Gap 13 BUN 44 H Creatinine 4.4 H Creat Clearance w eGFR 9.83 Random Glucose 84 Calcium 9.1 Phosphorus 4.1 Magnesium 2.0 Ferritin Cancelled Total Bilirubin 0.5 D AST 16 ALT 13 Alkaline Phosphatase 82 Total Protein 6.9 Albumin 3.4 L Active Medications Generic Name Dose Route Start Last Admin Trade Name Stephanie PRN Reason Stop Dose Admin Albuterol/Ipratropium 1 amp 06/26/16 09:45 06/27/16 11:10 Duoneb - NEB 1 amp Q6H [facility] Administration Escitalopram Oxalate 20 mg 06/26/16 10:00 06/27/16 09:22 Lexapro - PO 20 mg DAILY [facility] Administration Heparin Sodium (Porcine) 5,000 unit 06/25/16 22:00 06/27/16 09:20 Heparin - SQ 5,000 unit BID [facility] Administration Ceftriaxone Sodium 1 gm/ 50 mls @ 100 mls/hr 06/26/16 10:00 06/27/16 09:22 Dextrose IVPB 100 mls/hr DAILY [facility] Administration Levothyroxine Sodium 50 mcg 06/27/16 07:00 06/27/16 07:02 Synthroid - PO 50 mcg ACBK [facility] Administration Nebivolol 20 mg 06/27/16 10:00 06/27/16 09:21 Bystolic - PO 20 mg DAILY [facility] Administration Pantoprazole Sodium 40 mg 06/26/16 10:00 06/27/16 09:22 Protonix - PO 40 mg DAILY [facility] Administration Torsemide 20 mg 06/27/16 10:00 06/27/16 09:31 Demadex - PO Not Given DAILY [facility] Microbiology 06/25/16 16:00 Urine - Urine Clean Catch Urine Culture - Final 06/24/16 22:40 Nasopharyngeal Swab Respiratory Virus Panel - Preliminary 06/24/16 22:40 Nasopharyngeal Swab Influenza Types A,B Antigen (JONNY) - Final , negative 06/24/16 22:40 Nasopharyngeal Swab - Final Imaging US renal: interval decreased right hydronephrosis that remains moderate to marked; left renal cyst measuring 2.8 cm. Echo 04/18/16: LV normal; RV normal; moderate MR; trace PI; pleural effusion ASSESSMENT/PLAN 1) neph Acute kidney injury on chronic renal insufficiency -Right hydronephrosis secondary to congenital right UPJ obstruction --Cr 4. 4, baseline 2.5 --Lasix renal scan pending for 1400 --continue empiric ceftriaxone 2) card Diastolic heart failure, chronic - agree with cardiology, start demadex Hypertension - continue by systolic 20 mg daily -cardiology consulted and following 3) pulm -chest xray, no PNA - wheezing noted on exam cleared with duonebs will start Symbicort 4) endo Hypothyrodism --continue levothyroxine 5) Anxiety --continue Lexapro F/E/N Fluids: hold IV fluids Electrolytes: replete as indicated Nutrition: low sodium DVT prophylaxis: subq heparin, oob, ambulation Rehab PT eval Daily PT Dispo: continues to require inpatient care. Full code. Visit type - Emergency Visit Emergency Visit: Yes ED Registration Date: 06/24/16 Care time: The patient presented to the Emergency Department on the above date and was hospitalized for further evaluation of their emergent condition. - New Patient This patient is new to me today: No - Critical Care Critical Care patient: No - Discharge Referral Referred to [facility] Med P.C.: No
[2016-06-27 17:55] LABS: FERRITIN 132.265 ng/ml (6.9-282.5)
--- NOTE | 2016-06-27 19:34 | CON.PULM ---
Consult Consult Specialty:: PULMONARY Referred by:: PMD Reason for Consultation:: SOB/COUGH - History of Present Illness Chief Complaint: COUGH/URI History of Present Illness: This is a 75 year old female with a past medical history of HTN, R UPJ obstruction s/p stent placement 02/12/16 removal 05/31/15, L atrophic kidney, anemia, asthma, AV leak, hypothyroidism who presents to the ED from her PMD office with elevated creatinine. Today was her first lab test since the stent was removed. She states that she gets right flank pain "off and on" but none now. Denies any dysuria, frequency or abdominal pain. Pt started on zithromax yesterday for URI. Reports productive cough, whitish phlegm. Denies fever, SOB, chest pain. - History Source History Provided By: Patient, Medical Record Limitations to Obtaining History: No Limitations - Past Medical History FUNDING COORDINATOR: No: Alzheimer's Cardio/Vascular: No: AFIB Pulmonary: No: Asthma Gastrointestinal: No: Ascites Hepatobiliary: No: Cirrhosis Renal/: Yes: Renal Inusuff, UTI ...: No - Alcohol/Substance Use Hx Alcohol Use: No - Smoking History Smoking history: Former smoker Have you smoked in the past 12 months: No Aproximately how many cigarettes per day: 0 If you are a former smoker, when did you quit?: 2005 Home Medications - Allergies Allergies/Adverse Reactions: Allergies Allergy/AdvReac Type Severity Reaction Status Date / Time Penicillins Allergy Intermediate rash Verified 06/24/16 14:35 - Home Medications Home Medications: Ambulatory Orders Escitalopram Oxalate [Lexapro -] 20 mg PO DAILY 02/11/16 Nebivolol HCl [Bystolic] 10 mg PO DAILY tablet 03/04/16 Aspirin [ASA -] 81 mg PO DAILY 04/15/16 Furosemide [Lasix -] 20 mg PO ASDIR 04/15/16 Azithromycin [Zithromax -] 250 mg PO DAILY 06/24/16 Review of Systems - Review of Systems Respiratory: reports: Cough, SOB. denies: Hemoptysis Physical Exam Vital Sings: Vital Signs Temperature 98.5 F 06/27/16 14:37 Pulse Rate 63 06/27/16 14:37 Respiratory Rate 18 06/27/16 14:37 Blood Pressure 156/65 06/27/16 14:37 O2 Sat by Pulse Oximetry (%) 100 06/27/16 14:37 Constitutional: Yes: Calm Eyes: Yes: EOM Intact HENT: Yes: Normocephalic Neck: Yes: Trachea Midline Cardiovascular: Yes: Regular Rate and Rhythm Respiratory: Yes: CTA Bilaterally ...Clubbing: No Gastrointestinal: Yes: Normal Bowel Sounds Edema: No Labs: CBC, BMP 06/27/16 08:00 06/27/16 08:00 Imaging - Results Chest X-ray: Image Reviewed Problem List - Problems (1) Acute on chronic diastolic (congestive) heart failure Code(s): I50.33 - ACUTE ON CHRONIC DIASTOLIC (CONGESTIVE) HEART FAILURE (2) Acute on chronic renal failure Code(s): N17.9 - ACUTE KIDNEY FAILURE, UNSPECIFIED N18.9 - CHRONIC KIDNEY DISEASE, UNSPECIFIED (3) Anemia Code(s): D64.9 - ANEMIA, UNSPECIFIED Qualifiers: Other causes of anemia: chronic disease, kidney (4) Hydronephrosis due to ureteral stricture Code(s): N13.1 - HYDRONEPHROSIS W URETERAL STRICTURE, NEC (5) Hypertensive cardiomyopathy Code(s): I11.9 - HYPERTENSIVE HEART DISEASE WITHOUT HEART FAILURE I42.9 - CARDIOMYOPATHY, UNSPECIFIED Qualifiers: Heart failure presence: with heart failure Qualified Code(s): I11.0 - Hypertensive heart disease with heart failure Assessment/Plan RENAL INSUFFICIENCY CHF ANEMIA RESOLVED URI CONTINUE BRONCHODILATORS/O2 PRN/CONTINUE ANTIBIOTICS Charles CERVANTES MD
[2016-06-27] MEDS: BUDESONIDE/FORMETEROL FUMARATE 80/4.5 mcg INHALER IH SCH (21:18)
[2016-06-28] MEDS: ALBUTEROL SO4 2.5/IPRATROPIUM 0.5 INH SOL 3 ML VIAL.NEB. NEB SCH ×4 (04:00→21:53)
[2016-06-28] MEDS: LEVOTHYROXINE NA 50 MCG TABLET (FP) PO SCH (06:56)
[2016-06-28 08:07] LABS: HEP B SURFACE AB Non Reactive (.)
[2016-06-28 08:58] LABS: BASOPHIL 0.3 % (0-2.0); EOSINOPHIL 5.7 % (0-4.5); MCH 25.9 pg (25.7-33.7); MCHC 31.7 g/dl (32.0-36.0); MEAN CELL VOLUME 81.5 fl (80-96); MEAN PLT VOLUME 7.7 fl (7.5-11.1); NEUTROPHILS 57.5 % (42.8-82.8); PLATELET COUNT 310 K/MM3 (134-434); RDW 15.4 % (11.6-15.6); WHITE BLOOD COUNT 5.1 K/mm3 (4.0-10.0)
[2016-06-28 09:15] LABS: CALCIUM 9.3 mg/dl (8.4-10.2); CREATININE 4.4 mg/dl (0.6-1.3)
[2016-06-28] MEDS ORDERED: PT OWN MED DRAWER 7, Y5N ONE ×2 (09:44→21:12)
[2016-06-28] MEDS: CEFTRIAXONE 1 GM in DEXTROSE 5%-WATER - 50 ML IVPB SCH (09:47)
[2016-06-28] MEDS: ESCITALOPRAM OXALATE 20 MG TABLET (FP) PO SCH (09:49)
[2016-06-28] MEDS: PANTOPRAZOLE 40 MG TABLET (FP) PO SCH (09:49)
[2016-06-28] MEDS: TORSEMIDE 20 MG TABLET (FP) PO SCH (09:49)
[2016-06-28] MEDS: BUDESONIDE/FORMETEROL FUMARATE 80/4.5 mcg INHALER IH SCH ×2 (09:49→21:51)
[2016-06-28] MEDS: NEBIVOLOL 10 MG TABLET (FP) PO SCH (09:49)
[2016-06-28] MEDS: HEPARIN NA (PORCINE) 5,000 UNITS/ML 1ML VIAL SQ SCH (09:50)
--- NOTE | 2016-06-28 10:34 | PN ---
Progress Note, Physician History of Present Illness: PULMONARY ALERT,FEELING BETTER,LESS DYSPNEIC,-CP - Current Medication List Current Medications: Active Medications Albuterol/Ipratropium (Duoneb -) 1 amp NEB Q6H [facility] Last Admin: 06/28/16 10:20 Dose: 1 amp Budesonide/Formoterol Fumarate (Symbicort 80/4.5mcg -) 2 puff IH BID [facility] Last Admin: 06/28/16 09:49 Dose: 2 puff Escitalopram Oxalate (Lexapro -) 20 mg PO DAILY [facility] Last Admin: 06/28/16 09:49 Dose: 20 mg Heparin Sodium (Porcine) (Heparin -) 5,000 unit SQ BID [facility] Last Admin: 06/28/16 09:50 Dose: 5,000 unit Ceftriaxone Sodium 1 gm/ (Dextrose) 50 mls @ 100 mls/hr IVPB DAILY [facility] Last Admin: 06/28/16 09:47 Dose: 100 mls/hr Levothyroxine Sodium (Synthroid -) 50 mcg PO ACBK [facility] Last Admin: 06/28/16 06:56 Dose: 50 mcg Nebivolol (Bystolic -) 20 mg PO DAILY [facility] Last Admin: 06/28/16 09:49 Dose: 20 mg Pantoprazole Sodium (Protonix -) 40 mg PO DAILY [facility] Last Admin: 06/28/16 09:49 Dose: 40 mg Torsemide (Demadex -) 20 mg PO DAILY [facility] Last Admin: 06/28/16 09:49 Dose: 20 mg - Objective Vital Signs: Vital Signs Temperature 97.9 F 06/28/16 06:00 Pulse Rate 72 06/28/16 06:00 Respiratory Rate 19 06/28/16 06:00 Blood Pressure 149/64 06/28/16 06:00 O2 Sat by Pulse Oximetry (%) 100 06/28/16 06:00 Constitutional: Yes: Well Nourished, Calm Eyes: Yes: WNL HENT: Yes: WNL Neck: Yes: WNL Cardiovascular: Yes: Regular Rate and Rhythm, S1, S2 Respiratory: Yes: Diminished, Rales (FEW BIBASILAR CRACKLES) Gastrointestinal: Yes: Normal Bowel Sounds, Soft Extremities: Yes: WNL Edema: No Labs: CBC, BMP 06/28/16 08:20 06/28/16 08:20 - ....Imaging Chest X-ray: Report Reviewed, Image Reviewed Assessment/Plan Problem List - Problems (1) Acute on chronic diastolic (congestive) heart failure Code(s): I50.33 - ACUTE ON CHRONIC DIASTOLIC (CONGESTIVE) HEART FAILURE (2) Acute on chronic renal failure Code(s): N17.9 - ACUTE KIDNEY FAILURE, UNSPECIFIED N18.9 - CHRONIC KIDNEY DISEASE, UNSPECIFIED (3) Anemia Code(s): D64.9 - ANEMIA, UNSPECIFIED Qualifiers: Other causes of anemia: chronic disease, kidney (4) Hydronephrosis due to ureteral stricture Code(s): N13.1 - HYDRONEPHROSIS W URETERAL STRICTURE, NEC (5) Hypertensive cardiomyopathy Code(s): I11.9 - HYPERTENSIVE HEART DISEASE WITHOUT HEART FAILURE I42.9 - CARDIOMYOPATHY, UNSPECIFIED Qualifiers: Heart failure presence: with heart failure Qualified Code(s): I11.0 - Hypertensive heart disease with heart failure Assessment/Plan CHRONIC RENAL INSUFFICIENCY CHF ANEMIA RESOLVED URI PLAN CONTINUE BRONCHODILATORS O2 PRN CONTINUE ANTIBIOTICS MONITOR RENAL FUNCTION STENT IN AM PFTS OUTPATIENT DR MAIER
[2016-06-28 10:56] LABS: THYROID STIMULATING HORMONE 1.14 uIU/ml (0.358-3.74)
--- NOTE | 2016-06-28 13:27 | PN ---
Progress Note (short form) - Note Progress Note: patient with recurent right renal obs on renal scan plan for right ureteral stent placement on 06/29/16
--- NOTE | 2016-06-28 14:24 | PN ---
[id number] OBJECTIVE:patient is a 75 year-old female with a PMH of HTN, CKD, congenital right ureteropelvic junction obstruction s/p stent placement 02/12/16 and removal 05/31/15, left atrophic kidney, hypothyroidism, and anxiety. Admitted for acute kidney injury. Vital Signs Period Temp Pulse Resp BP Sys/Rashid Pulse Ox Last 24 Hr 97.2 F-98.5 F 63-73 18-19 139-156/57-65 94-100 GENERAL: The patient is awake, alert, and fully oriented, in no acute distress. HEAD: Normal with no signs of trauma. EYES: PERRL, extraocular movements intact, sclera anicteric, conjunctiva clear. No ptosis. ENT: Ears normal, nares patent, oropharynx clear without exudates, moist mucous membranes. NECK: Trachea midline, full range of motion, supple. LUNGS: Breath sounds equal, clear, diminished to bases,(much improved) no crackles, no wheezing no rales, no accessory muscle use. HEART: Regular rate and rhythm, S1, S2 without murmur, rub or gallop. ABDOMEN: Soft, nontender, nondistended, normoactive bowel sounds, no guarding, no rebound, no hepatosplenomegaly, no masses. EXTREMITIES: 2+ pulses, warm, well-perfused, no edema. NEUROLOGICAL: Cranial nerves II through XII grossly intact. Normal speech, gait not observed. PSYCH: Normal mood, normal affect. SKIN: Warm, dry, normal turgor, no rashes or lesions noted Laboratory Results - last 24 hr 06/27/16 06/27/16 06/28/16 08:00 17:00 08:20 WBC RBC Hgb Hct MCV MCHC RDW Plt Count MPV Neutrophils % Lymphocytes % Monocytes % Eosinophils % Basophils % Sodium 135 L Potassium 4.0 Chloride 100 Carbon Dioxide 22 Anion Gap 13 BUN 49 H Creatinine 4.4 H Random Glucose 90 Calcium 9.3 Ferritin 132.265 B-Natriuretic Peptide 83861.67 H Vitamin B12 445 Serum Folate 8 TSH 1.14 Hepatitis A Ab Total Negative Hep Bs Antigen Negative Hep Bs Antibody Non reactive Hep B Core Total Ab Negative Hepatitis C Antibody <0.1 06/28/16 08:20 WBC 5.1 RBC 3.73 Hgb 9.6 L Hct 30.4 L MCV 81.5 MCHC 31.7 L RDW 15.4 Plt Count 310 MPV 7.7 Neutrophils % 57.5 Lymphocytes % 25.6 Monocytes % 10.9 H Eosinophils % 5.7 H Basophils % 0.3 Sodium Potassium Chloride Carbon Dioxide Anion Gap BUN Creatinine Random Glucose Calcium Ferritin B-Natriuretic Peptide Vitamin B12 Serum Folate TSH Hepatitis A Ab Total Hep Bs Antigen Hep Bs Antibody Hep B Core Total Ab Hepatitis C Antibody Active Medications Generic Name Dose Route Start Last Admin Trade Name Freq PRN Reason Stop Dose Admin Albuterol/Ipratropium 1 amp 06/26/16 09:45 06/28/16 10:20 Duoneb - NEB 1 amp Q6H [facility] Administration Budesonide/Formoterol Fumarate 2 puff 06/27/16 22:00 06/28/16 09:49 Symbicort 80/4.5mcg - IH 2 puff BID [facility] Administration Escitalopram Oxalate 20 mg 06/26/16 10:00 06/28/16 09:49 Lexapro - PO 20 mg DAILY [facility] Administration Heparin Sodium (Porcine) 5,000 unit 06/25/16 22:00 06/28/16 09:50 Heparin - SQ 5,000 unit BID [facility] Administration Ceftriaxone Sodium 1 gm/ 50 mls @ 100 mls/hr 06/26/16 10:00 06/28/16 09:47 Dextrose IVPB 100 mls/hr DAILY [facility] Administration Levothyroxine Sodium 50 mcg 06/27/16 07:00 06/28/16 06:56 Synthroid - PO 50 mcg ACBK [facility] Administration Nebivolol 20 mg 06/27/16 10:00 06/28/16 09:49 Bystolic - PO 20 mg DAILY [facility] Administration Pantoprazole Sodium 40 mg 06/26/16 10:00 06/28/16 09:49 Protonix - PO 40 mg DAILY [facility] Administration Torsemide 20 mg 06/27/16 10:00 06/28/16 09:49 Demadex - PO 20 mg DAILY [facility] Administration Microbiology 06/25/16 16:00 Urine - Urine Clean Catch Urine Culture - Final 06/24/16 22:40 Nasopharyngeal Swab Respiratory Virus Panel - Preliminary 06/24/16 22:40 Nasopharyngeal Swab Influenza Types A,B Antigen (JONNY) - Final 06/24/16 22:40 Nasopharyngeal Swab - Final Imaging US renal: interval decreased right hydronephrosis that remains moderate to marked; left renal cyst measuring 2.8 cm. Echo 04/18/16: LV normal; RV normal; moderate MR; trace PI; pleural effusion nuclear medicine renal scan with Lasix, right kidney contributes to 99% (he contributes 61% of total renal function, high-grade obstruction of right kidney ASSESSMENT/PLAN 1) neph Acute kidney injury on chronic renal insufficiency -Right hydronephrosis secondary to congenital right UPJ obstruction --Cr 4. 4, baseline 2.5 --Lasix renal scan results reviewed case discussed with the urologist Dr. Plascencia, patient to OR tom (06/29/16) for right urethral stent placement --continue empiric ceftriaxone 2) card Diastolic heart failure, chronic - continue demadex Hypertension - continue by systolic 20 mg daily -cardiology consulted and following 3) pulm -chest xray, no PNA - continue Symbicort 4) endo Hypothyrodism --continue levothyroxine 5) Anxiety --continue Lexapro F/E/N Fluids: hold IV fluids Electrolytes: replete as indicated Nutrition: low sodium DVT prophylaxis: subq heparin, oob, ambulation Rehab PT eval Daily PT Dispo: continues to require inpatient care. Full code. Visit type - Emergency Visit Emergency Visit: Yes ED Registration Date: 06/24/16 Care time: The patient presented to the Emergency Department on the above date and was hospitalized for further evaluation of their emergent condition. - New Patient This patient is new to me today: No - Critical Care Critical Care patient: No - Discharge Referral Referred to [facility] Med P.C.: No
--- NOTE | 2016-06-28 14:28 | PN ---
Progress Note, Physician History of Present Illness: Pt seen and examined at bedside. She is awake and alert. She is out of bed to chair. She feels that her breathing is improved. - Current Medication List Current Medications: Active Medications Albuterol/Ipratropium (Duoneb -) 1 amp NEB Q6H [facility] Last Admin: 06/28/16 10:20 Dose: 1 amp Budesonide/Formoterol Fumarate (Symbicort 80/4.5mcg -) 2 puff IH BID [facility] Last Admin: 06/28/16 09:49 Dose: 2 puff Escitalopram Oxalate (Lexapro -) 20 mg PO DAILY [facility] Last Admin: 06/28/16 09:49 Dose: 20 mg Ceftriaxone Sodium 1 gm/ (Dextrose) 50 mls @ 100 mls/hr IVPB DAILY [facility] Last Admin: 06/28/16 09:47 Dose: 100 mls/hr Levothyroxine Sodium (Synthroid -) 50 mcg PO ACBK [facility] Last Admin: 06/28/16 06:56 Dose: 50 mcg Nebivolol (Bystolic -) 20 mg PO DAILY [facility] Last Admin: 06/28/16 09:49 Dose: 20 mg Pantoprazole Sodium (Protonix -) 40 mg PO DAILY [facility] Last Admin: 06/28/16 09:49 Dose: 40 mg Torsemide (Demadex -) 20 mg PO DAILY [facility] Last Admin: 06/28/16 09:49 Dose: 20 mg - Objective Vital Signs: Vital Signs Temperature 98.2 F 06/28/16 14:26 Pulse Rate 76 06/28/16 14:26 Respiratory Rate 18 06/28/16 14:26 Blood Pressure 126/48 06/28/16 14:26 O2 Sat by Pulse Oximetry (%) 98 06/28/16 14:26 Constitutional: Yes: Calm Eyes: Yes: Conjunctiva Clear HENT: Yes: Atraumatic Cardiovascular: Yes: S1, S2 Respiratory: Yes: CTA Bilaterally Gastrointestinal: Yes: Soft Genitourinary: Yes: WNL Musculoskeletal: Yes: WNL Edema: No Neurological: Yes: Oriented Psychiatric: Yes: Oriented Labs: CBC, BMP 06/28/16 08:20 06/28/16 08:20 Problem List - Problems (1) Acute on chronic diastolic (congestive) heart failure Code(s): I50.33 - ACUTE ON CHRONIC DIASTOLIC (CONGESTIVE) HEART FAILURE (2) Acute on chronic renal failure Code(s): N17.9 - ACUTE KIDNEY FAILURE, UNSPECIFIED N18.9 - CHRONIC KIDNEY DISEASE, UNSPECIFIED (3) Anemia Code(s): D64.9 - ANEMIA, UNSPECIFIED Qualifiers: Other causes of anemia: chronic disease, kidney (4) Hydronephrosis due to ureteral stricture Code(s): N13.1 - HYDRONEPHROSIS W URETERAL STRICTURE, NEC Assessment/Plan Current Medications Generic Name Dose Route Start Last Admin Trade Name Freq PRN Reason Stop Dose Admin Albuterol/Ipratropium 1 amp 06/26/16 09:45 06/28/16 10:20 Duoneb - NEB 1 amp Q6H [facility] Administration Budesonide/Formoterol Fumarate 2 puff 06/27/16 22:00 06/28/16 09:49 Symbicort 80/4.5mcg - IH 2 puff BID [facility] Administration Escitalopram Oxalate 20 mg 06/26/16 10:00 06/28/16 09:49 Lexapro - PO 20 mg DAILY [facility] Administration Ceftriaxone Sodium 1 gm/ 50 mls @ 100 mls/hr 06/26/16 10:00 06/28/16 09:47 Dextrose IVPB 100 mls/hr DAILY [facility] Administration Levothyroxine Sodium 50 mcg 06/27/16 07:00 06/28/16 06:56 Synthroid - PO 50 mcg ACBK [facility] Administration Nebivolol 20 mg 06/27/16 10:00 06/28/16 09:49 Bystolic - PO 20 mg DAILY [facility] Administration Pantoprazole Sodium 40 mg 06/26/16 10:00 06/28/16 09:49 Protonix - PO 40 mg DAILY [facility] Administration Torsemide 20 mg 06/27/16 10:00 06/28/16 09:49 Demadex - PO 20 mg DAILY [facility] Administration Laboratory Tests 06/27/16 06/28/16 08:00 08:20 Iron Pending Ferritin 132.265 Vitamin B12 445 Serum Folate 8 Impression 1. ZAC 2. CKD 3. hydronephrosis 4. HTN 5. CHF 6. anemia 7. hypothyroidism 8. Pyuria Plan - pt is going for cysto and stent placement in am - monitor urine output after stent placement - consider holding diuretics tomorrow - will monitor renal function closely - lasix scan reviewed - follow renal workup - monitor BP - will check iron levels - avoid Nephrotoxic agent such as NSAIDs please
[2016-06-29] MEDS: ALBUTEROL SO4 2.5/IPRATROPIUM 0.5 INH SOL 3 ML VIAL.NEB. NEB SCH ×4 (03:45→21:31)
[2016-06-29] MEDS: LEVOTHYROXINE NA 50 MCG TABLET (FP) PO SCH (07:02)
--- NOTE | 2016-06-29 07:39 | PN ---
Progress Note, Physician - Current Medication List Current Medications: Active Medications Acetaminophen (Tylenol -) 650 mg PO Q6H PRN PRN Reason: FEVER OR PAIN Albuterol/Ipratropium (Duoneb -) 1 amp NEB Q6H [facility] Last Admin: 06/29/16 03:45 Dose: 1 amp Budesonide/Formoterol Fumarate (Symbicort 80/4.5mcg -) 2 puff IH BID [facility] Last Admin: 06/28/16 21:51 Dose: 2 puff Escitalopram Oxalate (Lexapro -) 20 mg PO DAILY [facility] Last Admin: 06/28/16 09:49 Dose: 20 mg Ceftriaxone Sodium 1 gm/ (Dextrose) 50 mls @ 100 mls/hr IVPB DAILY [facility] Last Admin: 06/28/16 09:47 Dose: 100 mls/hr Levothyroxine Sodium (Synthroid -) 50 mcg PO ACBK [facility] Last Admin: 06/29/16 07:02 Dose: Not Given Nebivolol (Bystolic -) 20 mg PO DAILY [facility] Last Admin: 06/28/16 09:49 Dose: 20 mg Pantoprazole Sodium (Protonix -) 40 mg PO DAILY [facility] Last Admin: 06/28/16 09:49 Dose: 40 mg Torsemide (Demadex -) 20 mg PO DAILY [facility] Last Admin: 06/28/16 09:49 Dose: 20 mg - Objective Vital Signs: Vital Signs Temperature 98.7 F 06/29/16 05:53 Pulse Rate 76 06/29/16 05:53 Respiratory Rate 18 06/29/16 05:53 Blood Pressure 147/67 06/29/16 05:53 O2 Sat by Pulse Oximetry (%) 95 06/29/16 05:53 Labs: CBC, BMP 06/28/16 08:20 06/28/16 08:20 Assessment/Plan Problem List - Problems (1) Acute on chronic diastolic (congestive) heart failure Code(s): I50.33 - ACUTE ON CHRONIC DIASTOLIC (CONGESTIVE) HEART FAILURE (2) Acute on chronic renal failure Code(s): N17.9 - ACUTE KIDNEY FAILURE, UNSPECIFIED N18.9 - CHRONIC KIDNEY DISEASE, UNSPECIFIED (3) Anemia Code(s): D64.9 - ANEMIA, UNSPECIFIED Qualifiers: Other causes of anemia: chronic disease, kidney (4) Hydronephrosis due to ureteral stricture Code(s): N13.1 - HYDRONEPHROSIS W URETERAL STRICTURE, NEC (5) Hypertensive cardiomyopathy Code(s): I11.9 - HYPERTENSIVE HEART DISEASE WITHOUT HEART FAILURE I42.9 - CARDIOMYOPATHY, UNSPECIFIED Qualifiers: Heart failure presence: with heart failure Qualified Code(s): I11.0 - Hypertensive heart disease with heart failure Assessment/Plan CHRONIC RENAL INSUFFICIENCY CHF ANEMIA RESOLVED URI PLAN CONTINUE BRONCHODILATORS O2 PRN CONTINUE ANTIBIOTICS MONITOR RENAL FUNCTION STENT IN AM PFTS OUTPATIENT DR MAIER
[2016-06-29 09:01] LABS: BASOPHIL 0.5 % (0-2.0); EOSINOPHIL 4.9 % (0-4.5); MCH 26.5 pg (25.7-33.7); MCHC 32.5 g/dl (32.0-36.0); MEAN CELL VOLUME 81.7 fl (80-96); MEAN PLT VOLUME 7.8 fl (7.5-11.1); NEUTROPHILS 59.5 % (42.8-82.8); PLATELET COUNT 349 K/MM3 (134-434); WHITE BLOOD COUNT 5.8 K/mm3 (4.0-10.0)
[2016-06-29 09:11] LABS: CALCIUM 9.3 mg/dl (8.4-10.2); CREATININE 4.8 mg/dl (0.6-1.3)
--- NOTE | 2016-06-29 09:50 | PN ---
Progress Note, Physician History of Present Illness: Pt seen and examined at bedside. She is awake and alert. She is going for uretral stent placement today. - Current Medication List Current Medications: Active Medications Acetaminophen (Tylenol -) 650 mg PO Q6H PRN PRN Reason: FEVER OR PAIN Albuterol/Ipratropium (Duoneb -) 1 amp NEB Q6H [facility] Last Admin: 06/29/16 03:45 Dose: 1 amp Budesonide/Formoterol Fumarate (Symbicort 80/4.5mcg -) 2 puff IH BID [facility] Last Admin: 06/28/16 21:51 Dose: 2 puff Escitalopram Oxalate (Lexapro -) 20 mg PO DAILY [facility] Last Admin: 06/28/16 09:49 Dose: 20 mg Ceftriaxone Sodium 1 gm/ (Dextrose) 50 mls @ 100 mls/hr IVPB DAILY [facility] Last Admin: 06/28/16 09:47 Dose: 100 mls/hr Levothyroxine Sodium (Synthroid -) 50 mcg PO ACBK [facility] Last Admin: 06/29/16 07:02 Dose: Not Given Nebivolol (Bystolic -) 20 mg PO DAILY [facility] Last Admin: 06/28/16 09:49 Dose: 20 mg Pantoprazole Sodium (Protonix -) 40 mg PO DAILY [facility] Last Admin: 06/28/16 09:49 Dose: 40 mg Torsemide (Demadex -) 20 mg PO DAILY [facility] Last Admin: 06/28/16 09:49 Dose: 20 mg - Objective Vital Signs: Vital Signs Temperature 98.7 F 06/29/16 05:53 Pulse Rate 76 06/29/16 05:53 Respiratory Rate 18 06/29/16 05:53 Blood Pressure 147/67 06/29/16 05:53 O2 Sat by Pulse Oximetry (%) 95 06/29/16 05:53 Constitutional: Yes: Calm Eyes: Yes: Conjunctiva Clear HENT: Yes: Atraumatic Cardiovascular: Yes: S1, S2 Respiratory: Yes: CTA Bilaterally Gastrointestinal: Yes: Normal Bowel Sounds, Soft Genitourinary: Yes: WNL Musculoskeletal: Yes: WNL Extremities: Yes: WNL Edema: No Neurological: Yes: Oriented Psychiatric: Yes: Oriented Labs: CBC, BMP 06/29/16 07:43 06/29/16 07:43 Problem List - Problems (1) Acute on chronic diastolic (congestive) heart failure Code(s): I50.33 - ACUTE ON CHRONIC DIASTOLIC (CONGESTIVE) HEART FAILURE (2) Acute on chronic renal failure Code(s): N17.9 - ACUTE KIDNEY FAILURE, UNSPECIFIED N18.9 - CHRONIC KIDNEY DISEASE, UNSPECIFIED (3) Anemia Code(s): D64.9 - ANEMIA, UNSPECIFIED Qualifiers: Other causes of anemia: chronic disease, kidney (4) Hydronephrosis due to ureteral stricture Code(s): N13.1 - HYDRONEPHROSIS W URETERAL STRICTURE, NEC Assessment/Plan Current Medications Generic Name Dose Route Start Last Admin Trade Name Freq PRN Reason Stop Dose Admin Acetaminophen 650 mg 06/28/16 17:22 Tylenol - PO Q6H PRN FEVER OR PAIN Albuterol/Ipratropium 1 amp 06/26/16 09:45 06/29/16 03:45 Duoneb - NEB 1 amp Q6H [facility] Administration Budesonide/Formoterol Fumarate 2 puff 06/27/16 22:00 06/28/16 21:51 Symbicort 80/4.5mcg - IH 2 puff BID [facility] Administration Escitalopram Oxalate 20 mg 06/26/16 10:00 06/28/16 09:49 Lexapro - PO 20 mg DAILY [facility] Administration Ceftriaxone Sodium 1 gm/ 50 mls @ 100 mls/hr 06/26/16 10:00 06/28/16 09:47 Dextrose IVPB 100 mls/hr DAILY [facility] Administration Levothyroxine Sodium 50 mcg 06/27/16 07:00 06/29/16 07:02 Synthroid - PO Not Given ACBK [facility] Nebivolol 20 mg 06/27/16 10:00 06/28/16 09:49 Bystolic - PO 20 mg DAILY [facility] Administration Pantoprazole Sodium 40 mg 06/26/16 10:00 06/28/16 09:49 Protonix - PO 40 mg DAILY [facility] Administration Torsemide 20 mg 06/27/16 10:00 06/28/16 09:49 Demadex - PO 20 mg DAILY [facility] Administration Impression 1. ZAC 2. CKD 3. hydronephrosis 4. HTN 5. CHF 6. anemia 7. hypothyroidism 8. Pyuria Plan - pt for cysto and stend placment today - hold diuretics this am - monitor urine output after surgery - creatinine is rising - pt appears euvolemic at this time - case discussed with pt and her son - follow renal workup - monitor BP - follow up iron levels - avoid Nephrotoxic agent such as NSAIDs please
[2016-06-29] MEDS: NEBIVOLOL 10 MG TABLET (FP) PO SCH (09:58)
[2016-06-29] MEDS: CEFTRIAXONE 1 GM in DEXTROSE 5%-WATER - 50 ML IVPB SCH (09:59)
[2016-06-29] MEDS: PANTOPRAZOLE 40 MG TABLET (FP) PO SCH (09:59)
[2016-06-29] MEDS: ESCITALOPRAM OXALATE 20 MG TABLET (FP) PO SCH (09:59)
[2016-06-29] MEDS: BUDESONIDE/FORMETEROL FUMARATE 80/4.5 mcg INHALER IH SCH ×2 (09:59→21:30)
[2016-06-29] MEDS ORDERED: MIDAZOLAM HCL 2 MG/2 ML SINGLE DOSE VIAL ONE (10:34)
[2016-06-29] MEDS ORDERED: LIDOCAINE HCL 2% JELLY 10 ML CARTRIDGE ONE (10:41)
[2016-06-29] MEDS ORDERED: PROPOFOL 20 ML ONE (10:45)
[2016-06-29] MEDS ORDERED: LACTATED RINGERS SOLUTION 1,000 ML IV SCH (11:45)
[2016-06-29] MEDS ORDERED: ONDANSETRON 4 MG/2 ML VIAL IVPUSH PRN (11:51)
[2016-06-29] MEDS: ACETAMINOPHEN 1000 MG/100 ML VIAL (NON FORMULARY) IVPB ONE ×2 (12:00→14:05)
--- NOTE | 2016-06-29 13:16 | PN ---
[id number] stent placement OBJECTIVE:patient is a 75 year-old female with a PMH of HTN, CKD, congenital right ureteropelvic junction obstruction s/p stent placement 02/12/16 and removal 05/31/15, left atrophic kidney, hypothyroidism, and anxiety. Admitted for acute kidney injury. Vital Signs Period Temp Pulse Resp BP Sys/Rashid Pulse Ox Last 24 Hr 98.2 F-98.7 F 58-76 16-20 126-151/48-72 94-100 GENERAL: The patient is awake, alert, and fully oriented, in no acute distress. HEAD: Normal with no signs of trauma. EYES: PERRL, extraocular movements intact, sclera anicteric, conjunctiva clear. No ptosis. ENT: Ears normal, nares patent, oropharynx clear without exudates, moist mucous membranes. NECK: Trachea midline, full range of motion, supple. LUNGS: Breath sounds equal, clear to auscultation bilaterally, no wheezes, no crackles, no accessory muscle use. HEART: Regular rate and rhythm, S1, S2 without murmur, rub or gallop. ABDOMEN: Soft, nontender, nondistended, normoactive bowel sounds, no guarding, no rebound, no hepatosplenomegaly, no masses. EXTREMITIES: 2+ pulses, warm, well-perfused, no edema. NEUROLOGICAL: Cranial nerves II through XII grossly intact. Normal speech, gait not observed. PSYCH: Normal mood, normal affect. SKIN: Warm, dry, normal turgor, no rashes or lesions noted Laboratory Results - last 24 hr 06/27/16 06/29/16 06/29/16 17:00 07:43 07:43 WBC 5.8 RBC 3.73 Hgb 9.9 L Hct 30.5 L MCV 81.7 MCHC 32.5 RDW 15.0 Plt Count 349 MPV 7.8 Neutrophils % 59.5 Lymphocytes % 26.1 Monocytes % 9.0 Eosinophils % 4.9 H Basophils % 0.5 Sodium 136 Potassium 4.4 Chloride 99 Carbon Dioxide 21 L Anion Gap 16 BUN 58 H Creatinine 4.8 H Random Glucose 89 Calcium 9.3 CÉSAR Screen Negative Active Medications Generic Name Dose Route Start Last Admin Trade Name Freq PRN Reason Stop Dose Admin Acetaminophen 650 mg 06/28/16 17:22 Tylenol - PO Q6H PRN FEVER OR PAIN Albuterol/Ipratropium 1 amp 06/26/16 09:45 06/29/16 03:45 Duoneb - NEB 1 amp Q6H [facility] Administration Budesonide/Formoterol Fumarate 2 puff 06/27/16 22:00 06/29/16 09:59 Symbicort 80/4.5mcg - IH Not Given BID [facility] Escitalopram Oxalate 20 mg 06/26/16 10:00 06/29/16 09:59 Lexapro - PO Not Given DAILY [facility] Fentanyl 25 mcg 06/29/16 11:45 Sublimaze Injection - IVPUSH 07/02/16 11:46 [id number] PRN PAIN Ceftriaxone Sodium 1 gm/ 50 mls @ 100 mls/hr 06/26/16 10:00 06/29/16 09:59 Dextrose IVPB Not Given DAILY [facility] Lactated Ringer's 1,000 mls @ 125 mls/hr 06/29/16 11:45 Lactated Ringers Solution IV ASDIR [facility] Levothyroxine Sodium 50 mcg 06/27/16 07:00 06/29/16 07:02 Synthroid - PO Not Given ACBK [facility] Nebivolol 20 mg 06/27/16 10:00 06/29/16 09:58 Bystolic - PO Not Given DAILY [facility] Ondansetron HCl 4 mg 06/29/16 11:51 Zofran Injection IVPUSH 06/29/16 17:52 Q6H PRN NAUSEA AND/OR VOMITING Pantoprazole Sodium 40 mg 06/26/16 10:00 06/29/16 09:59 Protonix - PO Not Given DAILY [facility] Torsemide 20 mg 06/27/16 10:00 06/28/16 09:49 Demadex - PO 20 mg DAILY [facility] Administration Microbiology 06/25/16 16:00 Urine - Urine Clean Catch Urine Culture - Final 06/24/16 22:40 Nasopharyngeal Swab Respiratory Virus Panel - Preliminary 06/24/16 22:40 Nasopharyngeal Swab Influenza Types A,B Antigen (JONNY) - Final , negative 06/24/16 22:40 Nasopharyngeal Swab - Final Imaging US renal: interval decreased right hydronephrosis that remains moderate to marked; left renal cyst measuring 2.8 cm. Echo 04/18/16: LV normal; RV normal; moderate MR; trace PI; pleural effusion nuclear medicine renal scan with Lasix, right kidney contributes to 99% (he contributes 61% of total renal function, high-grade obstruction of right kidney ASSESSMENT/PLAN 1) neph Acute kidney injury on chronic renal insufficiency -Right hydronephrosis secondary to congenital right UPJ obstruction --Cr 4. 4, baseline 2.5 -- s/P right ureteral stent placement 06/29/16 --continue empiric ceftriaxone 2) card Diastolic heart failure, chronic - demadex held to prevent postobstructive diuresis Hypertension - continue by systolic 20 mg daily -cardiology consulted and following 3) pulm -chest xray, no PNA - continue Symbicort 4) endo Hypothyrodism --continue levothyroxine 5) Anxiety --continue Lexapro F/E/N Fluids: hold IV fluids Electrolytes: replete as indicated Nutrition: low sodium DVT prophylaxis: subq heparin, oob, ambulation Rehab PT eval Daily PT Dispo: continues to require inpatient care. Full code. Visit type - Emergency Visit Emergency Visit: Yes ED Registration Date: 06/24/16 Care time: The patient presented to the Emergency Department on the above date and was hospitalized for further evaluation of their emergent condition. - New Patient This patient is new to me today: No - Critical Care Critical Care patient: No - Discharge Referral Referred to [facility] Med P.C.: No
[2016-06-29] MEDS: ACETAMINOPHEN 325 MG TABLET (FP) PO PRN ×2 (15:13→20:24)
[2016-06-29] MEDS ORDERED: PT OWN MED DRAWER 7, Y5N ONE (20:20)
[2016-06-30] MEDS: ALBUTEROL SO4 2.5/IPRATROPIUM 0.5 INH SOL 3 ML VIAL.NEB. NEB SCH ×4 (06:11→21:27)
[2016-06-30] MEDS: LEVOTHYROXINE NA 50 MCG TABLET (FP) PO SCH (06:14)
--- NOTE | 2016-06-30 06:45 | PN ---
Progress Note, Physician History of Present Illness: PULMONARY ALERT,NAD,-SOB,-CP. PT S/P STENT TOLERATED PROCEDURE WELL.O2 SAT 99% ON RA - Current Medication List Current Medications: Active Medications Acetaminophen (Tylenol -) 650 mg PO Q6H PRN PRN Reason: FEVER OR PAIN Last Admin: 06/29/16 20:24 Dose: 650 mg Albuterol/Ipratropium (Duoneb -) 1 amp NEB Q6H [facility] Last Admin: 06/30/16 06:11 Dose: Not Given Budesonide/Formoterol Fumarate (Symbicort 80/4.5mcg -) 2 puff IH BID [facility] Last Admin: 06/29/16 21:30 Dose: 2 puff Escitalopram Oxalate (Lexapro -) 20 mg PO DAILY [facility] Last Admin: 06/29/16 09:59 Dose: Not Given Fentanyl (Sublimaze Injection -) 25 mcg IVPUSH [id number] PRN PRN Reason: PAIN Stop: 07/02/16 11:46 Ceftriaxone Sodium 1 gm/ (Dextrose) 50 mls @ 100 mls/hr IVPB DAILY [facility] Last Admin: 06/29/16 09:59 Dose: Not Given Levothyroxine Sodium (Synthroid -) 50 mcg PO ACBK [facility] Last Admin: 06/30/16 06:14 Dose: 50 mcg Nebivolol (Bystolic -) 20 mg PO DAILY [facility] Last Admin: 06/29/16 09:58 Dose: Not Given Pantoprazole Sodium (Protonix -) 40 mg PO DAILY [facility] Last Admin: 06/29/16 09:59 Dose: Not Given Torsemide (Demadex -) 20 mg PO DAILY [facility] Last Admin: 06/28/16 09:49 Dose: 20 mg - Objective Vital Signs: Vital Signs Temperature 98.0 F 06/30/16 05:36 Pulse Rate 63 06/30/16 05:36 Respiratory Rate 19 06/30/16 05:36 Blood Pressure 151/57 06/30/16 05:36 O2 Sat by Pulse Oximetry (%) 93 L 06/30/16 05:36 Constitutional: Yes: Well Nourished, Calm Eyes: Yes: WNL HENT: Yes: WNL Neck: Yes: WNL Cardiovascular: Yes: Regular Rate and Rhythm, S1, S2 Respiratory: Yes: CTA Bilaterally Gastrointestinal: Yes: Normal Bowel Sounds, Soft Extremities: Yes: WNL Edema: No Labs: CBC, BMP Laboratory Tests 06/30/16 07:00 Sodium 133 L Potassium 4.6 Chloride 98 Carbon Dioxide 20 L Anion Gap 15 BUN 61 H Creatinine 4.4 H Assessment/Plan Problem List - Problems (1) Acute on chronic diastolic (congestive) heart failure Code(s): I50.33 - ACUTE ON CHRONIC DIASTOLIC (CONGESTIVE) HEART FAILURE (2) Acute on chronic renal failure Code(s): N17.9 - ACUTE KIDNEY FAILURE, UNSPECIFIED N18.9 - CHRONIC KIDNEY DISEASE, UNSPECIFIED (3) Anemia Code(s): D64.9 - ANEMIA, UNSPECIFIED Qualifiers: Other causes of anemia: chronic disease, kidney (4) Hydronephrosis due to ureteral stricture Code(s): N13.1 - HYDRONEPHROSIS W URETERAL STRICTURE, NEC (5) Hypertensive cardiomyopathy Code(s): I11.9 - HYPERTENSIVE HEART DISEASE WITHOUT HEART FAILURE I42.9 - CARDIOMYOPATHY, UNSPECIFIED Qualifiers: Heart failure presence: with heart failure Qualified Code(s): I11.0 - Hypertensive heart disease with heart failure Assessment/Plan CHRONIC RENAL INSUFFICIENCY CHF ANEMIA RESOLVED URI PLAN CONTINUE BRONCHODILATORS O2 PRN CONTINUE ANTIBIOTICS MONITOR RENAL FUNCTION PFTS OUTPATIENT DR MAIER
[2016-06-30 08:44] LABS: BASOPHIL 0.4 % (0-2.0); EOSINOPHIL 0.7 % (0-4.5); MCH 25.5 pg (25.7-33.7); MCHC 31.1 g/dl (32.0-36.0); MEAN CELL VOLUME 82.1 fl (80-96); MEAN PLT VOLUME 7.6 fl (7.5-11.1); NEUTROPHILS 68.9 % (42.8-82.8); PLATELET COUNT 295 K/MM3 (134-434); RDW 14.9 % (11.6-15.6); WHITE BLOOD COUNT 5.7 K/mm3 (4.0-10.0)
--- NOTE | 2016-06-30 09:04 | PN ---
Progress Note, Physician History of Present Illness: Denies dyspnea or cough. - Current Medication List Current Medications: Active Medications Acetaminophen (Tylenol -) 650 mg PO Q6H PRN PRN Reason: FEVER OR PAIN Last Admin: 06/29/16 20:24 Dose: 650 mg Albuterol/Ipratropium (Duoneb -) 1 amp NEB Q6H [facility] Last Admin: 06/30/16 06:11 Dose: Not Given Budesonide/Formoterol Fumarate (Symbicort 80/4.5mcg -) 2 puff IH BID [facility] Last Admin: 06/29/16 21:30 Dose: 2 puff Escitalopram Oxalate (Lexapro -) 20 mg PO DAILY [facility] Last Admin: 06/29/16 09:59 Dose: Not Given Fentanyl (Sublimaze Injection -) 25 mcg IVPUSH [id number] PRN PRN Reason: PAIN Stop: 07/02/16 11:46 Ceftriaxone Sodium 1 gm/ (Dextrose) 50 mls @ 100 mls/hr IVPB DAILY [facility] Last Admin: 06/29/16 09:59 Dose: Not Given Levothyroxine Sodium (Synthroid -) 50 mcg PO ACBK [facility] Last Admin: 06/30/16 06:14 Dose: 50 mcg Nebivolol (Bystolic -) 20 mg PO DAILY [facility] Last Admin: 06/29/16 09:58 Dose: Not Given Pantoprazole Sodium (Protonix -) 40 mg PO DAILY [facility] Last Admin: 06/29/16 09:59 Dose: Not Given Torsemide (Demadex -) 20 mg PO DAILY [facility] Last Admin: 06/28/16 09:49 Dose: 20 mg - Objective Vital Signs: Vital Signs Temperature 98.0 F 06/30/16 05:36 Pulse Rate 63 06/30/16 05:36 Respiratory Rate 19 06/30/16 05:36 Blood Pressure 151/57 06/30/16 05:36 O2 Sat by Pulse Oximetry (%) 93 L 06/30/16 05:36 Constitutional: Yes: No Distress, Calm Neck: Yes: Supple Cardiovascular: Yes: Regular Rate and Rhythm Respiratory: Yes: Regular, Diminished Gastrointestinal: Yes: Normal Bowel Sounds, Soft Edema: No Labs: CBC, BMP 06/30/16 07:00 Problem List - Problems (1) Acute on chronic renal failure Code(s): N17.9 - ACUTE KIDNEY FAILURE, UNSPECIFIED N18.9 - CHRONIC KIDNEY DISEASE, UNSPECIFIED (2) Hydronephrosis due to ureteral stricture Code(s): N13.1 - HYDRONEPHROSIS W URETERAL STRICTURE, NEC (3) Acute on chronic diastolic (congestive) heart failure Code(s): I50.33 - ACUTE ON CHRONIC DIASTOLIC (CONGESTIVE) HEART FAILURE (4) Hypertensive cardiomyopathy Code(s): I11.9 - HYPERTENSIVE HEART DISEASE WITHOUT HEART FAILURE I42.9 - CARDIOMYOPATHY, UNSPECIFIED Qualifiers: Heart failure presence: with heart failure Qualified Code(s): I11.0 - Hypertensive heart disease with heart failure (5) Hypothyroidism Code(s): E03.9 - HYPOTHYROIDISM, UNSPECIFIED (6) Anemia Code(s): D64.9 - ANEMIA, UNSPECIFIED Qualifiers: Other causes of anemia: chronic disease, kidney (7) Pre-operative cardiovascular examination Code(s): Z01.810 - ENCOUNTER FOR PREPROCEDURAL CARDIOVASCULAR EXAMINATION Assessment/Plan Imaging US renal: interval decreased right hydronephrosis that remains moderate to marked; left renal cyst measuring 2.8 cm. Echo 04/18/16: LV normal; RV normal; moderate MR; trace PI; pleural effusion 1. s/p right ureteral stent placement for right hydronephrosis secondary to congenital right UPJ obstruction 2. Acute on chronic diastolic failure with underlying mod MR resolved 3. HTN/HCVD 4. Acute on CKD 5. Acute bronchitis 6. Anemia of CKD 7. Hypothyroidism P:1.Diuretics held per renal input, continue Bystolic 20 qd, start Procardia XL 30 qd, avoid nephrotoxins 2. BD. abx, course, O2 as needed, PFTs as outpatient 3. Monitor renal fxn, ARB held pending renal fxn stabilization
[2016-06-30] MEDS ORDERED: PT OWN MED DRAWER 7, Y5N ONE (09:46)
[2016-06-30] MEDS: CEFTRIAXONE 1 GM in DEXTROSE 5%-WATER - 50 ML IVPB SCH (09:52)
[2016-06-30] MEDS: NEBIVOLOL 10 MG TABLET (FP) PO SCH (09:52)
[2016-06-30] MEDS: NIFEdipine E.R. 30 MG TABLET (FP) PO SCH (09:53)
[2016-06-30] MEDS: ESCITALOPRAM OXALATE 20 MG TABLET (FP) PO SCH (09:53)
[2016-06-30] MEDS: PANTOPRAZOLE 40 MG TABLET (FP) PO SCH (09:53)
[2016-06-30] MEDS: BUDESONIDE/FORMETEROL FUMARATE 80/4.5 mcg INHALER IH SCH ×2 (09:55→21:27)
[2016-06-30 10:10] LABS: CREATININE 4.4 mg/dl (0.6-1.3)
--- NOTE | 2016-06-30 12:19 | PN ---
Progress Note, Physician History of Present Illness: Pt seen and examined at bedside. She had the uretral stent placed. She says the urine is still pink. - Current Medication List Current Medications: Active Medications Acetaminophen (Tylenol -) 650 mg PO Q6H PRN PRN Reason: FEVER OR PAIN Last Admin: 06/29/16 20:24 Dose: 650 mg Albuterol/Ipratropium (Duoneb -) 1 amp NEB Q6H [facility] Last Admin: 06/30/16 09:52 Dose: 1 amp Budesonide/Formoterol Fumarate (Symbicort 80/4.5mcg -) 2 puff IH BID [facility] Last Admin: 06/30/16 09:55 Dose: 2 puff Escitalopram Oxalate (Lexapro -) 20 mg PO DAILY [facility] Last Admin: 06/30/16 09:53 Dose: 20 mg Fentanyl (Sublimaze Injection -) 25 mcg IVPUSH [id number] PRN PRN Reason: PAIN Stop: 07/02/16 11:46 Ceftriaxone Sodium 1 gm/ (Dextrose) 50 mls @ 100 mls/hr IVPB DAILY [facility] Last Admin: 06/30/16 09:52 Dose: 100 mls/hr Levothyroxine Sodium (Synthroid -) 50 mcg PO ACBK [facility] Last Admin: 06/30/16 06:14 Dose: 50 mcg Nebivolol (Bystolic -) 20 mg PO DAILY [facility] Last Admin: 06/30/16 09:52 Dose: 20 mg Nifedipine (Procardia Xl -) 30 mg PO DAILY [facility] Last Admin: 06/30/16 09:53 Dose: 30 mg Pantoprazole Sodium (Protonix -) 40 mg PO DAILY [facility] Last Admin: 06/30/16 09:53 Dose: 40 mg Torsemide (Demadex -) 20 mg PO DAILY [facility] Last Admin: 06/28/16 09:49 Dose: 20 mg - Objective Vital Signs: Vital Signs Temperature 98.0 F 06/30/16 05:36 Pulse Rate 63 06/30/16 05:36 Respiratory Rate 19 06/30/16 05:36 Blood Pressure 151/57 06/30/16 05:36 O2 Sat by Pulse Oximetry (%) 94 L 06/30/16 09:00 Constitutional: Yes: Calm Eyes: Yes: Conjunctiva Clear HENT: Yes: Atraumatic Neck: Yes: Supple Cardiovascular: Yes: S1, S2 Respiratory: Yes: CTA Bilaterally Gastrointestinal: Yes: Soft Genitourinary: Yes: WNL, Hematuria Musculoskeletal: Yes: WNL Extremities: Yes: WNL Edema: No Integumentary: Yes: WNL Neurological: Yes: Oriented Psychiatric: Yes: Oriented Labs: CBC, BMP 06/30/16 07:00 06/30/16 07:00 Problem List - Problems (1) Acute on chronic diastolic (congestive) heart failure Code(s): I50.33 - ACUTE ON CHRONIC DIASTOLIC (CONGESTIVE) HEART FAILURE (2) Acute on chronic renal failure Code(s): N17.9 - ACUTE KIDNEY FAILURE, UNSPECIFIED N18.9 - CHRONIC KIDNEY DISEASE, UNSPECIFIED (3) Anemia Code(s): D64.9 - ANEMIA, UNSPECIFIED Qualifiers: Other causes of anemia: chronic disease, kidney (4) Hydronephrosis due to ureteral stricture Code(s): N13.1 - HYDRONEPHROSIS W URETERAL STRICTURE, NEC Assessment/Plan Current Medications Generic Name Dose Route Start Last Admin Trade Name Freq PRN Reason Stop Dose Admin Acetaminophen 650 mg 06/28/16 17:22 06/29/16 20:24 Tylenol - PO 650 mg Q6H PRN Administration FEVER OR PAIN Albuterol/Ipratropium 1 amp 06/26/16 09:45 06/30/16 09:52 Duoneb - NEB 1 amp Q6H [facility] Administration Budesonide/Formoterol Fumarate 2 puff 06/27/16 22:00 06/30/16 09:55 Symbicort 80/4.5mcg - IH 2 puff BID [facility] Administration Escitalopram Oxalate 20 mg 06/26/16 10:00 06/30/16 09:53 Lexapro - PO 20 mg DAILY [facility] Administration Fentanyl 25 mcg 06/29/16 11:45 Sublimaze Injection - IVPUSH 07/02/16 11:46 [id number] PRN PAIN Ceftriaxone Sodium 1 gm/ 50 mls @ 100 mls/hr 06/26/16 10:00 06/30/16 09:52 Dextrose IVPB 100 mls/hr DAILY [facility] Administration Levothyroxine Sodium 50 mcg 06/27/16 07:00 06/30/16 06:14 Synthroid - PO 50 mcg ACBK [facility] Administration Nebivolol 20 mg 06/27/16 10:00 06/30/16 09:52 Bystolic - PO 20 mg DAILY [facility] Administration Nifedipine 30 mg 06/30/16 10:00 06/30/16 09:53 Procardia Xl - PO 30 mg DAILY [facility] Administration Pantoprazole Sodium 40 mg 06/26/16 10:00 06/30/16 09:53 Protonix - PO 40 mg DAILY [facility] Administration Torsemide 20 mg 06/27/16 10:00 06/28/16 09:49 Demadex - PO 20 mg DAILY [facility] Administration Laboratory Tests 06/27/16 17:00 CÉSAR Screen Negative Hepatitis A Ab Total Negative Hep Bs Antigen Negative Hep Bs Antibody Non reactive Hep B Core Total Ab Negative Hepatitis C Antibody <0.1 Impression 1. ZAC 2. CKD 3. hydronephrosis 4. HTN 5. CHF 6. anemia 7. hypothyroidism 8. Pyuria Plan - pt is s/p uretral stent - resume torsemide, order placed - repeat labs in am - monitor urine color - pt appears euvolemic at this time - case discussed with pt - monitor BP - will do further renal workup as outpt - follow up iron levels - avoid Nephrotoxic agent such as NSAIDs please
[2016-06-30] MEDS: TORSEMIDE 20 MG TABLET (FP) PO SCH (12:32)
--- NOTE | 2016-06-30 14:14 | PN ---
[id number] dyspnea on exertion OBJECTIVE:patient is a 75 year-old female with a PMH of HTN, CKD, congenital right ureteropelvic junction obstruction s/p stent placement 02/12/16 and removal 05/31/15, left atrophic kidney, hypothyroidism, and anxiety. Admitted for acute kidney injury. Vital Signs Period Temp Pulse Resp BP Sys/Rashid Pulse Ox Last 24 Hr 98.0 F-98.6 F 59-71 16-19 112-151/48-57 93-100 GENERAL: The patient is awake, alert, and fully oriented, in no acute distress. HEAD: Normal with no signs of trauma. EYES: PERRL, extraocular movements intact, sclera anicteric, conjunctiva clear. No ptosis. ENT: Ears normal, nares patent, oropharynx clear without exudates, moist mucous membranes. NECK: Trachea midline, full range of motion, supple. LUNGS: Breath sounds equal, clear to auscultation bilaterally, no wheezes, no crackles, no accessory muscle use. HEART: Regular rate and rhythm, S1, S2 without murmur, rub or gallop. ABDOMEN: Soft, nontender, nondistended, normoactive bowel sounds, no guarding, no rebound, no hepatosplenomegaly, no masses. EXTREMITIES: 2+ pulses, warm, well-perfused, no edema. NEUROLOGICAL: Cranial nerves II through XII grossly intact. Normal speech, gait not observed. PSYCH: Normal mood, normal affect. SKIN: Warm, dry, normal turgor, no rashes or lesions noted Laboratory Results - last 24 hr 06/28/16 06/30/16 06/30/16 08:20 07:00 07:00 WBC 5.7 RBC 3.39 L Hgb 8.6 L D Hct 27.8 L MCV 82.1 MCHC 31.1 L RDW 14.9 Plt Count 295 MPV 7.6 Neutrophils % 68.9 Lymphocytes % 21.0 Monocytes % 9.0 Eosinophils % 0.7 D Basophils % 0.4 Sodium 133 L Potassium 4.6 Chloride 98 Carbon Dioxide 20 L Anion Gap 15 BUN 61 H Creatinine 4.4 H Random Glucose 79 Calcium 9.0 Iron 46 Active Medications Generic Name Dose Route Start Last Admin Trade Name Freq PRN Reason Stop Dose Admin Acetaminophen 650 mg 06/28/16 17:22 06/29/16 20:24 Tylenol - PO 650 mg Q6H PRN Administration FEVER OR PAIN Albuterol/Ipratropium 1 amp 06/26/16 09:45 06/30/16 09:52 Duoneb - NEB 1 amp Q6H [facility] Administration Budesonide/Formoterol Fumarate 2 puff 06/27/16 22:00 06/30/16 09:55 Symbicort 80/4.5mcg - IH 2 puff BID [facility] Administration Escitalopram Oxalate 20 mg 06/26/16 10:00 06/30/16 09:53 Lexapro - PO 20 mg DAILY [facility] Administration Fentanyl 25 mcg 06/29/16 11:45 Sublimaze Injection - IVPUSH 07/02/16 11:46 [id number] PRN PAIN Ceftriaxone Sodium 1 gm/ 50 mls @ 100 mls/hr 06/26/16 10:00 06/30/16 09:52 Dextrose IVPB 100 mls/hr DAILY [facility] Administration Levothyroxine Sodium 50 mcg 06/27/16 07:00 06/30/16 06:14 Synthroid - PO 50 mcg ACBK [facility] Administration Nebivolol 20 mg 06/27/16 10:00 06/30/16 09:52 Bystolic - PO 20 mg DAILY [facility] Administration Nifedipine 30 mg 06/30/16 10:00 06/30/16 09:53 Procardia Xl - PO 30 mg DAILY [facility] Administration Pantoprazole Sodium 40 mg 06/26/16 10:00 06/30/16 09:53 Protonix - PO 40 mg DAILY [facility] Administration Torsemide 20 mg 06/30/16 12:30 06/30/16 12:32 Demadex - PO 20 mg DAILY [facility] Administration Microbiology 06/25/16 16:00 Urine - Urine Clean Catch Urine Culture - Final 06/24/16 22:40 Nasopharyngeal Swab Respiratory Virus Panel - Preliminary 06/24/16 22:40 Nasopharyngeal Swab Influenza Types A,B Antigen (JONNY) - Final 06/24/16 22:40 Nasopharyngeal Swab - Final ASSESSMENT/PLAN: Imaging US renal: interval decreased right hydronephrosis that remains moderate to marked; left renal cyst measuring 2.8 cm. Echo 04/18/16: LV normal; RV normal; moderate MR; trace PI; pleural effusion nuclear medicine renal scan with Lasix, right kidney contributes to 99% (he contributes 61% of total renal function, high-grade obstruction of right kidney ASSESSMENT/PLAN 1) neph Acute kidney injury on chronic renal insufficiency -Right hydronephrosis secondary to congenital right UPJ obstruction --Cr 4. , baseline 2.5 s/P right ureteral stent placement 06/29/16 - patient remains afebrile and no leukocytosis noted --continue empiric ceftriaxone 2) card Diastolic heart failure, chronic - demadex resumed Hypertension - continue by systolic 20 mg daily -cardiology consulted and following 3) pulm -chest xray, no PNA - continue Symbicort 4) endo Hypothyrodism --continue levothyroxine 5) Anxiety --continue Lexapro F/E/N Fluids: hold IV fluids Electrolytes: replete as indicated Nutrition: low sodium DVT prophylaxis: subq heparin, oob, ambulation Rehab PT eval Daily PT Dispo: continues to require inpatient care. Full code. Visit type - Emergency Visit Emergency Visit: Yes ED Registration Date: 06/24/16 Care time: The patient presented to the Emergency Department on the above date and was hospitalized for further evaluation of their emergent condition. - New Patient This patient is new to me today: No - Critical Care Critical Care patient: No - Discharge Referral Referred to [facility] Med P.C[facility] No
[2016-07-01] MEDS: ALBUTEROL SO4 2.5/IPRATROPIUM 0.5 INH SOL 3 ML VIAL.NEB. NEB SCH ×4 (06:48→21:15)
[2016-07-01] MEDS: LEVOTHYROXINE NA 50 MCG TABLET (FP) PO SCH (06:49)
--- NOTE | 2016-07-01 07:15 | PN ---
Progress Note, Physician History of Present Illness: PULMONARY ALERT,NO DISTRESS,-SOB,+WHEEZING TODAY - Current Medication List Current Medications: Active Medications Acetaminophen (Tylenol -) 650 mg PO Q6H PRN PRN Reason: FEVER OR PAIN Last Admin: 06/29/16 20:24 Dose: 650 mg Albuterol/Ipratropium (Duoneb -) 1 amp NEB Q6H [facility] Last Admin: 07/01/16 06:48 Dose: Not Given Budesonide/Formoterol Fumarate (Symbicort 80/4.5mcg -) 2 puff IH BID [facility] Last Admin: 06/30/16 21:27 Dose: 2 puff Escitalopram Oxalate (Lexapro -) 20 mg PO DAILY [facility] Last Admin: 06/30/16 09:53 Dose: 20 mg Fentanyl (Sublimaze Injection -) 25 mcg IVPUSH [id number] PRN PRN Reason: PAIN Stop: 07/02/16 11:46 Ceftriaxone Sodium 1 gm/ (Dextrose) 50 mls @ 100 mls/hr IVPB DAILY [facility] Last Admin: 06/30/16 09:52 Dose: 100 mls/hr Lactobacillus Acidophilus (Bacid -) 1 tab PO DAILY [facility] Levothyroxine Sodium (Synthroid -) 50 mcg PO ACBK [facility] Last Admin: 07/01/16 06:49 Dose: 50 mcg Nebivolol (Bystolic -) 20 mg PO DAILY [facility] Last Admin: 06/30/16 09:52 Dose: 20 mg Nifedipine (Procardia Xl -) 30 mg PO DAILY [facility] Last Admin: 06/30/16 09:53 Dose: 30 mg Pantoprazole Sodium (Protonix -) 40 mg PO DAILY [facility] Last Admin: 06/30/16 09:53 Dose: 40 mg Torsemide (Demadex -) 20 mg PO DAILY [facility] Last Admin: 06/30/16 12:32 Dose: 20 mg - Objective Vital Signs: Vital Signs Temperature 98.5 F 07/01/16 06:00 Pulse Rate 67 07/01/16 06:00 Respiratory Rate 19 07/01/16 06:00 Blood Pressure 145/61 07/01/16 06:00 O2 Sat by Pulse Oximetry (%) 96 07/01/16 06:00 Constitutional: Yes: Well Nourished, Calm Eyes: Yes: WNL HENT: Yes: WNL Neck: Yes: WNL Cardiovascular: Yes: Regular Rate and Rhythm, S1, S2 Respiratory: Yes: Wheezes (SANTI[place]O WHEEZES) Gastrointestinal: Yes: Normal Bowel Sounds, Soft Extremities: Yes: WNL Edema: No Labs: CBC, BMP Assessment/Plan Problem List - Problems (1) Acute on chronic diastolic (congestive) heart failure Code(s): I50.33 - ACUTE ON CHRONIC DIASTOLIC (CONGESTIVE) HEART FAILURE (2) Acute on chronic renal failure Code(s): N17.9 - ACUTE KIDNEY FAILURE, UNSPECIFIED N18.9 - CHRONIC KIDNEY DISEASE, UNSPECIFIED (3) Anemia Code(s): D64.9 - ANEMIA, UNSPECIFIED Qualifiers: Other causes of anemia: chronic disease, kidney (4) Hydronephrosis due to ureteral stricture Code(s): N13.1 - HYDRONEPHROSIS W URETERAL STRICTURE, NEC (5) Hypertensive cardiomyopathy Code(s): I11.9 - HYPERTENSIVE HEART DISEASE WITHOUT HEART FAILURE I42.9 - CARDIOMYOPATHY, UNSPECIFIED Qualifiers: Heart failure presence: with heart failure Qualified Code(s): I11.0 - Hypertensive heart disease with heart failure Assessment/Plan CHRONIC RENAL INSUFFICIENCY CHF ANEMIA RESOLVED URI PLAN CONTINUE BRONCHODILATORS O2 PRN CONTINUE ANTIBIOTICS MONITOR RENAL FUNCTION CHEST X-RAY TODAY PFTS OUTPATIENT DR MAIER
[2016-07-01 08:42] LABS: BASOPHIL 0.6 % (0-2.0); EOSINOPHIL 3.6 % (0-4.5); MCH 25.9 pg (25.7-33.7); MCHC 31.5 g/dl (32.0-36.0); MEAN PLT VOLUME 7.8 fl (7.5-11.1); NEUTROPHILS 53.1 % (42.8-82.8); PLATELET COUNT 277 K/MM3 (134-434); RDW 15.6 % (11.6-15.6); WHITE BLOOD COUNT 5.7 K/mm3 (4.0-10.0)
[2016-07-01 08:57] LABS: CALCIUM 8.9 mg/dl (8.4-10.2); CREATININE 4.6 mg/dl (0.6-1.3)
[2016-07-01] MEDS ORDERED: PT OWN MED DRAWER 7, Y5N ONE ×2 (09:16→21:08)
[2016-07-01] MEDS: BUDESONIDE/FORMETEROL FUMARATE 80/4.5 mcg INHALER IH SCH ×2 (09:19→21:15)
[2016-07-01] MEDS: ESCITALOPRAM OXALATE 20 MG TABLET (FP) PO SCH (09:20)
[2016-07-01] MEDS: PANTOPRAZOLE 40 MG TABLET (FP) PO SCH (09:20)
[2016-07-01] MEDS: NEBIVOLOL 10 MG TABLET (FP) PO SCH (09:20)
[2016-07-01] MEDS: TORSEMIDE 20 MG TABLET (FP) PO SCH (09:21)
[2016-07-01] MEDS: CEFTRIAXONE 1 GM in DEXTROSE 5%-WATER - 50 ML IVPB SCH (09:21)
[2016-07-01] MEDS: LACTOBACILLUS ACIDOPHILUS 1 EACH TAB (FP) PO SCH (09:23)
[2016-07-01] MEDS: NIFEdipine E.R. 30 MG TABLET (FP) PO SCH (09:24)
--- NOTE | 2016-07-01 09:40 | PN ---
[id number] OBJECTIVE:patient is a 75 year-old female with a PMH of HTN, CKD, congenital right ureteropelvic junction obstruction s/p stent placement 02/12/16 and removal 05/31/15, left atrophic kidney, hypothyroidism, and anxiety. Admitted for acute kidney injury. s/p right urethral stent placement (06/29/16). Vital Signs Period Temp Pulse Resp BP Sys/Rashid Pulse Ox Last 24 Hr 97.8 F-98.6 F 62-67 16-19 112-145/48-61 95-100 GENERAL: The patient is awake, alert, and fully oriented, in no acute distress. HEAD: Normal with no signs of trauma. EYES: PERRL, extraocular movements intact, sclera anicteric, conjunctiva clear. No ptosis. ENT: Ears normal, nares patent, oropharynx clear without exudates, moist mucous membranes. NECK: Trachea midline, full range of motion, supple. LUNGS: Breath sounds equal, clear to auscultation to right apex & base, clear to left apex and wheezing left base, no crackles, no accessory muscle use. HEART: Regular rate and rhythm, S1, S2 without murmur, rub or gallop. ABDOMEN: Soft, nontender, nondistended, normoactive bowel sounds, no guarding, no rebound, no hepatosplenomegaly, no masses. EXTREMITIES: 2+ pulses, warm, well-perfused, no edema. NEUROLOGICAL: Cranial nerves II through XII grossly intact. Normal speech, gait not observed. PSYCH: Normal mood, normal affect. SKIN: Warm, dry, normal turgor, no rashes or lesions noted Laboratory Results - last 24 hr 06/30/16 07/01/16 07/01/16 07:00 07:00 07:00 WBC 5.7 RBC 3.41 L Hgb 8.8 L Hct 28.0 L MCV 82.0 MCHC 31.5 L RDW 15.6 Plt Count 277 MPV 7.8 Neutrophils % 53.1 D Lymphocytes % 33.3 D Monocytes % 9.4 Eosinophils % 3.6 D Basophils % 0.6 Sodium 133 L 133 L Potassium 4.6 4.6 Chloride 98 98 Carbon Dioxide 20 L 23 Anion Gap 15 12 BUN 61 H 66 H Creatinine 4.4 H 4.6 H Random Glucose 79 75 Calcium 9.0 8.9 Active Medications Generic Name Dose Route Start Last Admin Trade Name Freq PRN Reason Stop Dose Admin Acetaminophen 650 mg 06/28/16 17:22 06/29/16 20:24 Tylenol - PO 650 mg Q6H PRN Administration FEVER OR PAIN Albuterol/Ipratropium 1 amp 06/26/16 09:45 07/01/16 06:48 Duoneb - NEB Not Given Q6H [facility] Budesonide/Formoterol Fumarate 2 puff 06/27/16 22:00 07/01/16 09:19 Symbicort 80/4.5mcg - IH 2 puff BID [facility] Administration Escitalopram Oxalate 20 mg 06/26/16 10:00 07/01/16 09:20 Lexapro - PO 20 mg DAILY [facility] Administration Fentanyl 25 mcg 06/29/16 11:45 Sublimaze Injection - IVPUSH 07/02/16 11:46 [id number] PRN PAIN Ceftriaxone Sodium 1 gm/ 50 mls @ 100 mls/hr 06/26/16 10:00 07/01/16 09:21 Dextrose IVPB 100 mls/hr DAILY [facility] Administration Lactobacillus Acidophilus 1 tab 07/01/16 10:00 07/01/16 09:23 Bacid - PO Not Given DAILY [facility] Levothyroxine Sodium 50 mcg 06/27/16 07:00 07/01/16 06:49 Synthroid - PO 50 mcg ACBK [facility] Administration Nebivolol 20 mg 06/27/16 10:00 07/01/16 09:20 Bystolic - PO 20 mg DAILY [facility] Administration Nifedipine 30 mg 06/30/16 10:00 07/01/16 09:24 Procardia Xl - PO 30 mg DAILY [facility] Administration Pantoprazole Sodium 40 mg 06/26/16 10:00 07/01/16 09:20 Protonix - PO 40 mg DAILY [facility] Administration Torsemide 20 mg 06/30/16 12:30 07/01/16 09:21 Demadex - PO 20 mg DAILY [facility] Administration Microbiology 06/24/16 22:40 Nasopharyngeal Swab Respiratory Virus Panel - Preliminary 06/25/16 16:00 Urine - Urine Clean Catch Urine Culture - Final, negative 06/24/16 22:40 Nasopharyngeal Swab Influenza Types A,B Antigen (JONNY) - Final , negative 06/24/16 22:40 Nasopharyngeal Swab - Final Imaging US renal: interval decreased right hydronephrosis that remains moderate to marked; left renal cyst measuring 2.8 cm. Echo 04/18/16: LV normal; RV normal; moderate MR; trace PI; pleural effusion nuclear medicine renal scan with Lasix, right kidney contributes to 99% (he contributes 61% of total renal function, high-grade obstruction of right kidney ASSESSMENT/PLAN 1) neph Acute kidney injury on chronic renal insufficiency -Right hydronephrosis secondary to congenital right UPJ obstruction --Cr 4.6 baseline 2.5, hod tomm dose of demadex s/P right ureteral stent placement 06/29/16 - patient remains afebrile and no leukocytosis noted --continue empiric ceftriaxone 2) card Diastolic heart failure, chronic - demadex given today, hold tomm dose Hypertension - continue by systolic 20 mg daily -cardiology consulted and following 3) pulm -repeat chest xray, wheezing noted on exam assess for fluid overload - continue Symbicort with scheduled duonebs 4) endo Hypothyrodism --continue levothyroxine 5) Anxiety --continue Lexapro F/E/N Fluids: hold IV fluids Electrolytes: replete as indicated Nutrition: low sodium DVT prophylaxis: subq heparin, oob, ambulation Rehab PT eval Daily PT Dispo: continues to require inpatient care. Full code. Visit type - Emergency Visit Emergency Visit: Yes ED Registration Date: 06/24/16 Care time: The patient presented to the Emergency Department on the above date and was hospitalized for further evaluation of their emergent condition. - New Patient This patient is new to me today: No - Critical Care Critical Care patient: No - Discharge Referral Referred to [facility] Med P.C.: No
--- NOTE | 2016-07-01 12:45 | PN ---
Progress Note, Physician History of Present Illness: Pt seen and examined at bedside. She is awake and alert. She says that the hematuria resolved. She denies shortness of breath. - Current Medication List Current Medications: Active Medications Acetaminophen (Tylenol -) 650 mg PO Q6H PRN PRN Reason: FEVER OR PAIN Last Admin: 06/29/16 20:24 Dose: 650 mg Albuterol/Ipratropium (Duoneb -) 1 amp NEB Q6H [facility] Last Admin: 07/01/16 10:32 Dose: 1 amp Budesonide/Formoterol Fumarate (Symbicort 80/4.5mcg -) 2 puff IH BID [facility] Last Admin: 07/01/16 09:19 Dose: 2 puff Escitalopram Oxalate (Lexapro -) 20 mg PO DAILY [facility] Last Admin: 07/01/16 09:20 Dose: 20 mg Fentanyl (Sublimaze Injection -) 25 mcg IVPUSH [id number] PRN PRN Reason: PAIN Stop: 07/02/16 11:46 Ceftriaxone Sodium 1 gm/ (Dextrose) 50 mls @ 100 mls/hr IVPB DAILY [facility] Last Admin: 07/01/16 09:21 Dose: 100 mls/hr Lactobacillus Acidophilus (Bacid -) 1 tab PO DAILY [facility] Last Admin: 07/01/16 09:23 Dose: Not Given Levothyroxine Sodium (Synthroid -) 50 mcg PO ACBK [facility] Last Admin: 07/01/16 06:49 Dose: 50 mcg Nebivolol (Bystolic -) 20 mg PO DAILY [facility] Last Admin: 07/01/16 09:20 Dose: 20 mg Nifedipine (Procardia Xl -) 30 mg PO DAILY [facility] Last Admin: 07/01/16 09:24 Dose: 30 mg Pantoprazole Sodium (Protonix -) 40 mg PO DAILY [facility] Last Admin: 07/01/16 09:20 Dose: 40 mg Torsemide (Demadex -) 20 mg PO DAILY [facility] Last Admin: 07/01/16 09:21 Dose: 20 mg - Objective Vital Signs: Vital Signs Temperature 98.5 F 07/01/16 09:15 Pulse Rate 70 07/01/16 09:15 Respiratory Rate 18 07/01/16 09:15 Blood Pressure 145/65 07/01/16 09:15 O2 Sat by Pulse Oximetry (%) 96 07/01/16 06:00 Constitutional: Yes: Calm Eyes: Yes: Conjunctiva Clear HENT: Yes: Atraumatic Cardiovascular: Yes: S1, S2 Respiratory: Yes: CTA Bilaterally Gastrointestinal: Yes: Soft Genitourinary: No: CVA Tenderness - Left, CVA Tenderness - Right, Hematuria Musculoskeletal: Yes: WNL Edema: No Neurological: Yes: Oriented Psychiatric: Yes: Oriented Labs: CBC, BMP 07/01/16 07:00 07/01/16 07:00 - ....Imaging Chest X-ray: Report Reviewed Problem List - Problems (1) Acute on chronic diastolic (congestive) heart failure Code(s): I50.33 - ACUTE ON CHRONIC DIASTOLIC (CONGESTIVE) HEART FAILURE (2) Acute on chronic renal failure Code(s): N17.9 - ACUTE KIDNEY FAILURE, UNSPECIFIED N18.9 - CHRONIC KIDNEY DISEASE, UNSPECIFIED (3) Anemia Code(s): D64.9 - ANEMIA, UNSPECIFIED Qualifiers: Other causes of anemia: chronic disease, kidney (4) Hydronephrosis due to ureteral stricture Code(s): N13.1 - HYDRONEPHROSIS W URETERAL STRICTURE, NEC Assessment/Plan Current Medications Generic Name Dose Route Start Last Admin Trade Name Freq PRN Reason Stop Dose Admin Acetaminophen 650 mg 06/28/16 17:22 06/29/16 20:24 Tylenol - PO 650 mg Q6H PRN Administration FEVER OR PAIN Albuterol/Ipratropium 1 amp 06/26/16 09:45 07/01/16 10:32 Duoneb - NEB 1 amp Q6H [facility] Administration Budesonide/Formoterol Fumarate 2 puff 06/27/16 22:00 07/01/16 09:19 Symbicort 80/4.5mcg - IH 2 puff BID [facility] Administration Escitalopram Oxalate 20 mg 06/26/16 10:00 07/01/16 09:20 Lexapro - PO 20 mg DAILY [facility] Administration Fentanyl 25 mcg 06/29/16 11:45 Sublimaze Injection - IVPUSH 07/02/16 11:46 [id number] PRN PAIN Ceftriaxone Sodium 1 gm/ 50 mls @ 100 mls/hr 06/26/16 10:00 07/01/16 09:21 Dextrose IVPB 100 mls/hr DAILY [facility] Administration Lactobacillus Acidophilus 1 tab 07/01/16 10:00 07/01/16 09:23 Bacid - PO Not Given DAILY [facility] Levothyroxine Sodium 50 mcg 06/27/16 07:00 07/01/16 06:49 Synthroid - PO 50 mcg ACBK [facility] Administration Nebivolol 20 mg 06/27/16 10:00 07/01/16 09:20 Bystolic - PO 20 mg DAILY [facility] Administration Nifedipine 30 mg 06/30/16 10:00 07/01/16 09:24 Procardia Xl - PO 30 mg DAILY [facility] Administration Pantoprazole Sodium 40 mg 06/26/16 10:00 07/01/16 09:20 Protonix - PO 40 mg DAILY [facility] Administration Torsemide 20 mg 06/30/16 12:30 07/01/16 09:21 Demadex - PO 20 mg DAILY [facility] Administration Laboratory Tests 06/27/16 06/28/16 08:00 08:20 Iron 46 Ferritin 132.265 Impression 1. ZAC 2. CKD 3. hydronephrosis 4. HTN 5. CHF 6. anemia 7. hypothyroidism 8. Pyuria Plan - creatinine is trending up again - pt did receive her torsemide today, hold in am until labs are reviewed - gross hematuria is resolved - encourage PO intake - plan discussed with patient at length - pt appears euvolemic at this time - monitor BP - will do further renal workup as outpt - cxr reviewed, there is no acute pathology - avoid Nephrotoxic agent such as NSAIDs please
[2016-07-02] MEDS: ALBUTEROL SO4 2.5/IPRATROPIUM 0.5 INH SOL 3 ML VIAL.NEB. NEB SCH ×2 (03:35→09:37)
[2016-07-02 06:19] VITALS: BP 139/57; PULSE 59; TEMP 98.3
[2016-07-02] MEDS: LEVOTHYROXINE NA 50 MCG TABLET (FP) PO SCH (07:00)
[2016-07-02 08:17] LABS: CALCIUM 9.1 mg/dl (8.4-10.2)
[2016-07-02] MEDS: CEFTRIAXONE 1 GM in DEXTROSE 5%-WATER - 50 ML IVPB SCH (09:37)
[2016-07-02] MEDS: LACTOBACILLUS ACIDOPHILUS 1 EACH TAB (FP) PO SCH (09:38)
[2016-07-02] MEDS: PANTOPRAZOLE 40 MG TABLET (FP) PO SCH (09:38)
[2016-07-02] MEDS: NIFEdipine E.R. 30 MG TABLET (FP) PO SCH (09:38)
[2016-07-02] MEDS: NEBIVOLOL 10 MG TABLET (FP) PO SCH (09:38)
[2016-07-02] MEDS: ESCITALOPRAM OXALATE 20 MG TABLET (FP) PO SCH (09:38)
[2016-07-02] MEDS: BUDESONIDE/FORMETEROL FUMARATE 80/4.5 mcg INHALER IH SCH (09:39)
[2016-07-02] MEDS ORDERED: PT OWN MED DRAWER 7, Y5N ONE (09:41)
--- NOTE | 2016-07-02 09:55 | DS ---
Physical Exam: SUBJECTIVE: Patient seen and examined. currently asymptomatic. denies SOb, cough , orthopnea, CP, fever, chills, dysuria or urinary frequency OBJECTIVE: Vital Signs Period Temp Pulse Resp BP Sys/Rashid Pulse Ox Last 24 Hr 97.4 F-98.3 F 59-63 16-18 129-139/53-57 97-100 PHYSICAL EXAM GENERAL: The patient is awake, alert, and fully oriented, in no acute distress. HEAD: Normal with no signs of trauma. EYES: PERRL, extraocular movements intact, sclera anicteric, conjunctiva clear. ENT: Ears normal, nares patent, oropharynx clear without exudates, moist mucous membranes. NECK: Trachea midline, full range of motion, supple. LUNGS: Breath sounds equal, clear to auscultation bilaterally, no wheezes, no crackles, no accessory muscle use. HEART: Regular rate and rhythm, S1, S2 without murmur, rub or gallop. ABDOMEN: Soft, nontender, nondistended, normoactive bowel sounds, no guarding, no rebound, no hepatosplenomegaly, no masses. EXTREMITIES: 2+ pulses, warm, well-perfused, no edema. NEUROLOGICAL: Cranial nerves II through XII grossly intact. Normal speech, gait not observed. PSYCH: Normal mood, normal affect. SKIN: Warm, dry, normal turgor, no rashes or lesions noted. LABS Laboratory Results - last 24 hr 06/26/16 07/02/16 09:50 07:15 Anticoagulation Therapy Cancelled Puncture Site Cancelled Patient Temperature Cancelled ABG pH Cancelled ABG pCO2 at Pt Temp Cancelled ABG pO2 at Pt Temp Cancelled ABG HCO3 Cancelled ABG O2 Sat (Measured) Cancelled ABG O2 Content Cancelled ABG Base Excess Cancelled Anand Test Cancelled O2 Delivery Device Cancelled Oxygen Flow Rate Cancelled Vent Mode Cancelled Vent Rate Cancelled Mechanical Rate Cancelled PEEP Cancelled Pressure Support Vent Cancelled Sodium 135 L Potassium 4.5 Chloride 97 L Carbon Dioxide 26 Anion Gap 12 BUN 69 H Creatinine 4.0 H Random Glucose 84 Calcium 9.1 HOSPITAL COURSE: Date of Admission:06/24/16 Date of Discharge: 07/02/16 Admitting diagnosis: Acute on CKD, UTI, Ureteral obstruction Procedures: R ureteral stent placement 06/29/16 Pre hospital course 75 year old female with a past medical history of HTN, R UPJ obstruction s/p stent placement 02/12/16 removal 05/31/15, L atrophic kidney, anemia, asthma, AV leak, congenital "hole in heart", hypothyroidism who presents to the ED from her PMD office with elevated creatinine. Today was her first lab test since the stent was removed. She states that she gets right flank pain "off and on" but none now. Denies any dysuria, frequency or abdominal pain. Pt started on zithromax yesterday for URI. Reports productive cough, whitish phlegm. Denies fever, SOB, chest pain. Subsequent hospital course Admitted to medicine. evaluated by urology, nephrology, cardio and pulmonary. urology placed new R stent. medications adjusted. lasix switched to toresemide. nifedipine started. started on prophylatic Ceftriaxone for surgical procedure and completed 7 day course while hospitalized. evaluated by pulmonary for cough and started on symbicort. kidney function monitored closely and started to improve (Cr peaked at 4.8 discharged at 4). d/c home on new medication changes. will need to follow up with nephrology for further kidney work up. Minutes to complete discharge: 45 Discharge Summary Reason For Visit: ACUTE RENAL FAILURE Current Active Problems Acute on chronic diastolic (congestive) heart failure (Acute) Acute on chronic renal failure (Acute) Anemia (Acute) Hydronephrosis due to ureteral stricture (Acute) Hypertensive cardiomyopathy (Acute) Pre-operative cardiovascular examination (Acute) Hypothyroidism (Chronic) Condition: Improved - Instructions Diet, Activity, Other Instructions: You completed your antibiotic course in the hospital. Your home medications have changed, refer to medication list for these changes. Start taking the water pill (torsemide) tomorrow Follow up with urology and your primary care doctor this week. Follow up with the kidney doctor to continue to monitor your kidney function. you may require further testing to determine the cause Follow up with the lung doctor to follow up your breathing as you are now on daily inhalers. you will likely require further testing. Return to the Er if your symptoms worsen Referrals: Philip Al MD [Staff Physician] - 1 Month (Lung doctor) Jerry Pinzon MD [Staff Physician] - 1 Week (urologist) Gina Arana MD [Staff Physician] - (kidney doctor) Disposition: HOME - Home Medications Comprehensive Discharge Medication List: Ambulatory Orders Escitalopram Oxalate [Lexapro -] 20 mg PO DAILY 02/11/16 Nebivolol HCl [Bystolic] 10 mg PO DAILY tablet 03/04/16 Aspirin [ASA -] 81 mg PO DAILY 04/15/16 Albuterol Sulfate Inhaler - [Ventolin HFA Inhaler -] 1 - 2 inh PO Q4H PRN #1 inhaler 07/02/16 Budesonide/Formeterol Fumarate [SYMBICORT 80/4.5mcg -] 2 puff IH BID #1 inhaler 07/02/16 Nifedipine ER [Procardia XL -] 30 mg PO DAILY #30 tab.er.[id number] 07/02/16 Torsemide [Demadex -] 20 mg PO DAILY #30 tablet 07/02/16 This patient is new to me today: Yes Date on this admission: 07/02/16 Emergency Visit: Yes ED Registration Date: 06/24/16 Care time: The patient presented to the Emergency Department on the above date and was hospitalized for further evaluation of their emergent condition. Critical Care patient: No - Discharge Referral Referred to [facility] Med P.C.: No
--- NOTE | 2016-07-18 19:01 | OP ---
DATE OF OPERATION: 06/29/2016 PREOPERATIVE DIAGNOSIS: Acute renal failure, right hydronephrosis. POSTOPERATIVE DIAGNOSIS: Acute renal failure, right hydronephrosis. PROCEDURE: Cystoscopy right ureteral stent placement and retrograde pyelogram. SURGEON: Jerry Pinzon M.D. DRAINS: A 6 x 24 Double J ureteral stent. FINDINGS: This is a tortuous ureter with hydronephrosis. PREOPERATIVE INDICATION: The patient is a 76-year-old female who has a history of a chronic right UPJ obstruction. Several months ago, she was having some recurring urinary tract infections and some flank pain, and she had a stent placed. At the time, the ureter was very dilated, and tortuous, difficult to navigate the ureter, but ultimately the stent was placed. Subsequently she came in for a right UPJ obstruction laser incision which was done without incident approximately 4-6 weeks later, the stent was removed. She felt well for awhile, and then re-developed some flank pain and was noted to have an elevated creatinine. She is now admitted and come to the OR for placement of the stent. OPERATION: Patient was brought to the OR, placed on the table in the supine position, given general anesthesia and placed in the modified lithotomy position. The groin was prepped and draped sterilely. Cystoscopy was performed. The urethra and bladder were normal. No tumors or stones were seen. The right ureteral orifice was visualized. The combination of catheter and a glidewire and a guidewire, the tortuous right ureter was ultimately navigated into the kidney and was straightened. Retrograde pyelogram revealed the anatomy of the kidney. A 6 x 24 Double J ureteral stent was placed, 1 loop in the renal pelvis and the other loop in the bladder. The bladder was emptied. The patient was then woken up. Caity [id number]
== END 2016-07-02 12:00 | disposition home or self-care (01) | DRG 682 ==
LOC: FER 14:26 → FM/S 18:28 → UNDODISIN 06-25 18:57
PROVIDERS: ADMIT Internal Medicine; ATTEND Nurse Practitioner Family
PROC: 0T768DZ Dilation of Right Ureter with Intraluminal Device, Via Natural or Artificial Opening Endoscopic (ICD-10-PCS; principal; 2016-06-29 11:00)
DX: N17.9 Acute kidney failure, unspecified (principal); I50.33 Acute on chronic diastolic (congestive) heart failure; I13.0 Hypertensive heart and chronic kidney disease with heart failure and stage 1 through stage 4 chronic kidney disease, or unspecified chronic kidney disease; I42.8 Other cardiomyopathies; N13.1 Hydronephrosis with ureteral stricture, not elsewhere classified; E03.9 Hypothyroidism, unspecified; I35.8 Other nonrheumatic aortic valve disorders; J45.909 Unspecified asthma, uncomplicated; D63.1 Anemia in chronic kidney disease; N28.1 Cyst of kidney, acquired; J06.9 Acute upper respiratory infection, unspecified; J20.9 Acute bronchitis, unspecified; N27.0 Small kidney, unilateral; F41.8 Other specified anxiety disorders; N18.9 Chronic kidney disease, unspecified; Z87.891 Personal history of nicotine dependence; Z88.0 Allergy status to penicillin
CPT/HCPCS: 36415; 36600; 71010-TC; 71020-TC; 72170-TC; 76000-TC; 76775-TC; 78708-TC; 80048; 80053; 81003; 81015; 82550; 82570; 82607; 82728; 82746; 82803; 83540; 83735; 83880; 84100; 84156; 84443; 84484; 85025; 86038; 86704; 86706; 86708; 86803; 87086; 87254; 87340; 87804; 93005; 94640; 94760; 97116-GP; 97161-GP; 99283-25; A9562; J1644

== ENCOUNTER 2016-10-09 07:11 | Emergency (ER) | payer BC, OTHER ==
--- NOTE | 2016-10-09 07:18 | PDOC ---
History of Present Illness - General Chief Complaint: Urinary Problem Stated Complaint: STENT COMING OUT Time Seen by Provider: 10/09/16 07:16 History Source: Patient Exam Limitations: No Limitations - History of Present Illness Initial Comments: 10/09/16 07:33 76 yo presents hoping to have something done about her ureteral stent which has moved and is actually coming out and causing incontinence. The stent was placed because of a chronic obstruction of her right kidney. (her other kidney is atrophic) She has no other complaints or associated symptoms Timing/Duration: 4-6 hours Severity: mild Associated Symptoms: reports: denies symptoms Past History - Past Medical History Allergies/Adverse Reactions: Allergies Allergy/AdvReac Type Severity Reaction Status Date / Time Penicillins Allergy Intermediate rash Verified 10/09/16 07:13 Home Medications: Ambulatory Orders Aspirin [ASA -] 81 mg PO DAILY 10/09/16 Escitalopram Oxalate [Lexapro -] 20 mg PO DAILY 10/09/16 Sulfamethoxazole/Trimethoprim [Bactrim Ds Tablet] 1 each PO BID #20 tablet 10/09 Anemia: Yes Asthma: Yes (YEARS AGO) 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)) Cardiac Disorders: Yes (aortic valve"leak"; congenital hole in heart) CVA: No COPD: No CHF: No Dementia: No Diabetes: No GI Disorders: No Disorders: Yes (stent to rt urethra) HTN: Yes Hypercholesterolemia: No Liver Disease: No Seizures: No Thyroid Disease: Yes - Surgical History Appendectomy: Yes Cholecystectomy: Yes - Psycho/Social/Smoking Cessation Hx Anxiety: No Suicidal Ideation: No Smoking History: Unknown if ever smoked Have you smoked in the past 12 months: No Number of Cigarettes Smoked Daily: 0 If you are a former smoker, when did you quit?: 2005 Hx Alcohol Use: No Drug/Substance Use Hx: No Substance Use Type: None Hx Substance Use Treatment: No Review of Systems - Review of Systems Able to Perform ROS?: Yes Is the patient limited Pashto proficient: No Constitutional: No: Symptoms Reported HEENTM: No: Symptoms Reported Respiratory: No: Symptoms reported Cardiac (ROS): No: Symptoms Reported ABD/GI: No: Symptoms Reported : Yes: See HPI Musculoskeletal: No: Symptoms Reported Integumentary: No: Symptoms Reported Neurological: No: Symptoms reported Psychiatric: No: Anxiety, Depression Endocrine: No: Symptoms Reported Hematologic/Lymphatic: No: Symptoms Reported All Other Systems: Reviewed and Negative *Physical Exam - Physical Exam General Appearance: Yes: Nourished. No: Apparent Distress HEENT: positive: Normal ENT Inspection, Normal Voice Neck: positive: Supple. negative: Tender Respiratory/Chest: positive: Lungs Clear, Normal Breath Sounds Cardiovascular: positive: Regular Rhythm, Regular Rate Gastrointestinal/Abdominal: positive: Normal Bowel Sounds, Flat, Soft Rectal Exam: positive: deferred Lymphatic: negative: Adenopathy, Tenderness Musculoskeletal: positive: Normal Inspection Extremity: positive: Normal Capillary Refill, Normal Inspection Integumentary: positive: Normal Color, Dry, Warm Neurologic: positive: Fully Oriented Medical Decision Making - Medical Decision Making 10/09/16 08:23 Stent removed intact after speaking with urology. patient tolerated procedure well. *DC/Admit/Observation/Transfer Diagnosis at time of Disposition: Encounter for removal of ureteral stent, UTI (urinary tract infection) - Discharge Dispostion Disposition: HOME Condition at time of disposition: Good Admit: No - Prescriptions Prescriptions: Sulfamethoxazole/Trimethoprim [Bactrim Ds Tablet] 1 each PO BID #20 tablet - Referrals Referrals: Momo Alicia MD [Primary Care Provider] - - Patient Instructions Printed Discharge Instructions: DI for Urinary Tract Infection (UTI) Additional Instructions: Mrs Callejas- I am happy that we were able to help you this morning. Start the antibiotic later tonight. See your urologist as soon as you can. Best- Dr. Bryant Grady PS: Return to us if any problems.
[2016-10-09 07:21] VITALS: BP 147/72; PULSE 70; TEMP 98.8; BMI 27.9
[2016-10-09] MEDS ORDERED: FLUCONAZOLE 100 MG TABLET (UD) PO ONE (08:26)
[2016-10-09] MEDS ORDERED: SULFAMETHOXAZOLE/TRIMETHOPRIM 800MG/160MG D.S. TABLET PO ONE (08:27)
[2016-10-09] MEDS ORDERED: SULFAMETHOXAZOLE/TRIMETHOPRIM 800MG/160MG D.S. TABLET ONE (08:32)
[2016-10-09] MEDS ORDERED: FLUCONAZOLE 150 MG TABLET PO ONE (08:32)
[2016-10-09] MEDS ORDERED: FLUCONAZOLE 50 MG TABLET PO ONE (08:33)
[2016-10-09 08:48] LABS: PH,URINE 5.5 (4.5-8); URINE BILIRUBIN Negative (NEGATIVE); URINE GLUCOSE (UA) Negative (NEGATIVE); URINE KETONE Negative (NEGATIVE); URINE NITRITE Negative (NEGATIVE); URINE UROBILINOGEN 0.2 E.U/dl (0.2-1.0)
[2016-10-09 08:50] LABS: URINE APPEARANCE CLOUDY; URINE BLOOD 2+ (NEGATIVE); URINE COLOR YELLOW; URINE LEUK ESTERASE 3+ (NEGATIVE); URINE PROTEIN 2+ (NEGATIVE)
== END 2016-10-09 08:39 | disposition home or self-care (01) ==
LOC: FER 07:11
DX: Z48.03 Encounter for change or removal of drains (principal); N39.0 Urinary tract infection, site not specified; I10 Essential (primary) hypertension; E07.9 Disorder of thyroid, unspecified; Z87.891 Personal history of nicotine dependence; I51.9 Heart disease, unspecified; Z85.828 Personal history of other malignant neoplasm of skin; Z85.89 Personal history of malignant neoplasm of other organs and systems; J45.909 Unspecified asthma, uncomplicated
CPT/HCPCS: 81003; 81015; 87086; 87186; 99282-25

== ENCOUNTER 2016-10-09 17:00 | Inpatient (IN) | payer BC, OTHER ==
[2016-10-09 17:10] VITALS: BMI 27.8
[2016-10-09] MEDS ORDERED: SODIUM CHLORIDE 1,000 ML IV STA (17:15)
[2016-10-09] MEDS ORDERED: ONDANSETRON 4 MG/2 ML VIAL IVPB ONE (17:18)
[2016-10-09] MEDS ORDERED: morphine CARPU-JECT 4 MG/1 ML DISP.SYRIN IVPUSH ONE (17:18)
--- NOTE | 2016-10-09 17:20 | PDOC ---
History of Present Illness - General History Source: Patient Exam Limitations: No Limitations - History of Present Illness Initial Comments: 10/09/16 17:52 The patient is a 76 year old female who is revisiting the ER from this morning. She has a Chronic obstruction of the right ureter, for which she needs a stent . She had an appointment on monday to replace it, but it fell out yesterday. It was Partially in and partially out. Dr. Grady in the ER removed it after discussing case with her urologist this morning. Now she is back with severe back pain. She also complains of chills and nausea. She denies fever, chills, SOB. 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) HTN: Yes Hypercholesterolemia: No Liver Disease: No Seizures: No Thyroid Disease: Yes - Surgical History Appendectomy: Yes Cholecystectomy: Yes - Psycho/Social/Smoking Cessation Hx Anxiety: No Suicidal Ideation: No Smoking History: Former smoker Have you smoked in the past 12 months: No Number of Cigarettes Smoked Daily: 0 If you are a former smoker, when did you quit?: 2005 Information on smoking cessation initiated: No Hx Alcohol Use: No Drug/Substance Use Hx: No Substance Use Type: None Hx Substance Use Treatment: No <Bryant Grady - Last Filed: 10/09/16 18:19> <Andrea Sherwood - Last Filed: 10/10/16 00:34> - Past Medical History Allergies/Adverse Reactions: Allergies Allergy/AdvReac Type Severity Reaction Status Date / Time Penicillins Allergy Intermediate rash Verified 10/09/16 17:04 Home Medications: Ambulatory Orders Aspirin [ASA -] 81 mg PO DAILY 10/09/16 Escitalopram Oxalate [Lexapro -] 20 mg PO DAILY 10/09/16 Sulfamethoxazole/Trimethoprim [Bactrim Ds Tablet] 1 each PO BID #20 tablet 10/09 Review of Systems - Review of Systems Able to Perform ROS?: Yes Comments:: 10/09/16 17:52 GENERAL/CONSTITUTIONAL: + chills. No fever. No weakness. HEAD, EYES, EARS, NOSE AND THROAT: No change in vision. No ear pain or discharge. No sore throat. CARDIOVASCULAR: No chest pain or shortness of breath. RESPIRATORY: No cough, wheezing, or hemoptysis. GASTROINTESTINAL: + nausea No vomiting, diarrhea or constipation. GENITOURINARY: No dysuria, frequency, or change in urination. MUSCULOSKELETAL: + back pain. No joint or muscle swelling or pain. No neck pain. SKIN: No rash NEUROLOGIC: No headache, vertigo, loss of consciousness, or change in strength/ sensation. ENDOCRINE: No increased thirst. No abnormal weight change. HEMATOLOGIC/LYMPHATIC: No anemia, easy bleeding, or history of blood clots. ALLERGIC/IMMUNOLOGIC: No hives or skin allergy. <Ronnie Hughes - Last Filed: 10/09/16 17:53> *Physical Exam - Vital Signs Last Vital Signs Temp Pulse Resp BP Pulse Ox 100.2 F H 66 18 144/65 97 10/09/16 17:18 10/09/16 17:00 10/09/16 17:00 10/09/16 17:00 10/09/16 17:00 - Physical Exam Comments: 10/09/16 17:53 General Appearance: Yes: Nourished. No: Apparent Distress HEENT: positive: Normal ENT Inspection, Normal Voice Neck: positive: Supple. negative: Tender Respiratory/Chest: positive: Lungs Clear, Normal Breath Sounds Cardiovascular: positive: Regular Rhythm, Regular Rate Gastrointestinal/Abdominal: positive: Normal Bowel Sounds, Flat, Soft Rectal Exam: positive: deferred Lymphatic: negative: Adenopathy, Tenderness Musculoskeletal: positive: Normal Inspection Extremity: positive: Normal Capillary Refill, Normal Inspection Integumentary: positive: Normal Color, Dry, Warm Neurologic: positive: Fully Oriented <Ronnie Hughes - Last Filed: 10/09/16 17:53> - Vital Signs Last Vital Signs Temp Pulse Resp BP Pulse Ox 99.1 F 66 18 144/65 97 10/09/16 17:00 10/09/16 17:00 10/09/16 17:00 10/09/16 17:00 10/09/16 17:00 <Bryant Grady - Last Filed: 10/09/16 18:19> - Vital Signs Last Vital Signs Temp Pulse Resp BP Pulse Ox 99.2 F 71 18 113/57 95 10/09/16 21:23 10/09/16 21:23 10/09/16 17:00 10/09/16 21:23 10/09/16 21:23 <Andrea Sherwood - Last Filed: 10/10/16 00:34> Heart Score/ECG Review - ECG Intrepretation Comment:: 10/09/16 17:51 Normal Sinus Rhythm, 66bpm. Normal ECG. <Ronnie Hughes - Last Filed: 10/09/16 17:53> ED Treatment Course - LABORATORY CBC & Chemistry Diagram: 10/09/16 17:15 10/09/16 17:15 - Medications Given in the ED: ED Medications Discontinued Medications Generic Name Dose Route Start Last Admin Trade Name Markq PRN Reason Stop Dose Admin Acetaminophen 1,000 mg 10/09/16 17:43 10/09/16 17:45 Ofirmev Injection - IVPB 10/09/16 17:44 1,000 mg ONCE ONE Administration Morphine Sulfate 4 mg 10/09/16 17:18 10/09/16 17:20 Morphine Injection - IVPUSH 10/09/16 17:19 4 mg ONCE ONE Administration Ondansetron HCl 4 mg 10/09/16 17:18 10/09/16 17:15 Zofran Injection IVPB 10/09/16 17:19 4 mg ONCE ONE Administration <Ronnie Hughes - Last Filed: 10/09/16 17:53> - LABORATORY CBC & Chemistry Diagram: 10/09/16 17:15 10/09/16 17:15 - ADDITIONAL ORDERS Additional order review: Laboratory Results 10/09/16 10/09/16 10/09/16 17:15 17:15 17:15 INR PTT (Actin FS) Sodium Potassium Chloride Carbon Dioxide Anion Gap BUN Creatinine Creat Clearance w eGFR Random Glucose Lactic Acid 1.972 Calcium Total Bilirubin AST ALT Alkaline Phosphatase Creatine Kinase 56 Troponin I < 0.03 L Total Protein Albumin Blood Type A POSITIVE Antibody Screen Negative 10/09/16 10/09/16 17:15 17:15 INR 1.00 PTT (Actin FS) 26.6 Sodium 135 L Potassium 3.9 Chloride 99 Carbon Dioxide 23 Anion Gap 13 BUN 48 H D Creatinine 3.0 H D Creat Clearance w eGFR 15.25 Random Glucose 142 H D Lactic Acid Calcium 8.7 Total Bilirubin 0.1 L D AST 15 ALT 10 D Alkaline Phosphatase 89 Creatine Kinase Cancelled Troponin I Cancelled Total Protein 7.1 Albumin 3.6 Blood Type Antibody Screen 10/09/16 17:15 RBC 4.09 MCV 82.9 MCHC 34.1 RDW 13.7 D MPV 9.3 D Neutrophils % 80.2 D Lymphocytes % 11.4 D Monocytes % 6.4 Eosinophils % 1.8 Basophils % 0.2 - Medications Given in the ED: ED Medications Discontinued Medications Generic Name Dose Route Start Last Admin Trade Name Stephanie PRN Reason Stop Dose Admin Acetaminophen 1,000 mg 10/09/16 17:43 10/09/16 17:45 Ofirmev Injection - IVPB 10/09/16 17:44 1,000 mg ONCE ONE Administration Sodium Chloride 1,000 mls @ 1,000 mls/hr 10/09/16 17:15 10/09/16 17:47 Normal Saline - IV 10/09/16 18:14 Not Given ASDIR STA Morphine Sulfate 4 mg 10/09/16 17:18 10/09/16 17:20 Morphine Injection - IVPUSH 10/09/16 17:19 4 mg ONCE ONE Administration Ondansetron HCl 4 mg 10/09/16 17:18 10/09/16 17:15 Zofran Injection IVPB 10/09/16 17:19 4 mg ONCE ONE Administration Oxycodone/Acetaminophen 2 combo 10/09/16 20:38 10/09/16 20:49 Percocet 5/325 - PO 10/09/16 20:39 2 combo ONCE ONE Administration <Andrea Sherwood - Last Filed: 10/10/16 00:34> Medical Decision Making - Medical Decision Making 10/10/16 00:34 received on signout case d/w Dr. Kelly of Urology. Abx, analgesia. For stent replacement in AM <Andrea Sherwood - Last Filed: 10/10/16 00:34> *DC/Admit/Observation/Transfer - Attestations Scribe Attestion: 10/09/16 17:53 Documentation prepared by Ronnie Hughes, acting as medical superintendent for Bryant Grady MD/DO. <Ronnie Hughes - Last Filed: 10/09/16 17:53> - Attestations Physician Attestion: 10/09/16 17:15 I, Dr. Bryant Grady, attest that this document has been prepared under my direction and personally reviewed by me in its entirety. I further attest, that it accurately reflects all work, treatment, procedures and medical decision -making performed by me. <Bryant Grady - Last Filed: 10/09/16 18:19> - Discharge Dispostion Admit: Yes <Andrea Sherwood - Last Filed: 10/10/16 00:34> Diagnosis at time of Disposition: Perinephritis - Discharge Dispostion Condition at time of disposition: Stable - Referrals
[2016-10-09] MEDS ORDERED: ACETAMINOPHEN 1000 MG/100 ML VIAL (NON FORMULARY) IVPB ONE (17:43)
[2016-10-09 17:47] LABS: BASOPHIL 0.2 % (0-2.0); EOSINOPHIL 1.8 % (0-4.5); MCH 28.2 pg (25.7-33.7); MCHC 34.1 g/dl (32.0-36.0); MEAN CELL VOLUME 82.9 fl (80-96); MEAN PLT VOLUME 9.3 fl (7.5-11.1); NEUTROPHILS 80.2 % (42.8-82.8); PLATELET COUNT 247 K/MM3 (134-434); RDW 13.7 % (11.6-15.6); WHITE BLOOD COUNT 9.3 K/mm3 (4.0-10.8)
[2016-10-09 17:48] LABS: ACTIVATED PTT 26.6 SECONDS (24.0-38.9); ALBUMIN 3.6 g/dl (3.5-5.0); BILIRUBIN,TOTAL 0.1 mg/dl (0.2-1.0); CALCIUM 8.7 mg/dl (8.4-10.2); TOT PROT 7.1 g/dl (6.4-8.3)
[2016-10-09 17:49] LABS: CPK(DFH) 56 IU/L (26-140)
[2016-10-09 17:52] LABS: PROTHROMBIN TIME (PATIENT) 11.2 SEC (10.2-13.0)
[2016-10-09 18:21] LABS: TROPONIN I (DFP) < 0.03 ng/ml (0.03-0.50)
[2016-10-09] MEDS ORDERED: SODIUM CHLORIDE 1,000 ML IV ONE (18:59)
[2016-10-09] MEDS ORDERED: OXYCODONE/APAP 5/325MG COMBO TABLET PO ONE (20:38)
[2016-10-09] MEDS ORDERED: OXYCODONE/APAP 5/325MG COMBO TABLET ONE (20:46)
[2016-10-09] MEDS ORDERED: LEVOFLOXACIN 500 MG IVPB 100 ML IVPB ONE (21:57)
[2016-10-09] MEDS: LEVOFLOXACIN 500 MG IVPB 100 ML IVPB SCH (22:00)
[2016-10-09 22:04] LABS: PH,URINE 5.5 (4.5-8); URINE APPEARANCE Clear; URINE BILIRUBIN Negative (NEGATIVE); URINE GLUCOSE (UA) Negative (NEGATIVE); URINE KETONE Negative (NEGATIVE); URINE NITRITE Negative (NEGATIVE); URINE UROBILINOGEN 0.2 E.U/dl (0.2-1.0)
[2016-10-09 22:05] LABS: URINE BLOOD 1+ (NEGATIVE); URINE COLOR YELLOW; URINE LEUK ESTERASE 1+ (NEGATIVE); URINE PROTEIN 1+ (NEGATIVE)
[2016-10-09 22:27] LABS: URINE BACTERIA FEW /hpf (NEGATIVE)
[2016-10-09] MEDS ORDERED: DEXTROSE 5%-0.45% SALINE 1,000 ML IV SCH (23:45)
--- NOTE | 2016-10-09 23:45 | HP ---
CHIEF COMPLAINT: Right Flank Pain, Nausea, Vomiting, Chills PCP: Dr. Alicia HISTORY OF PRESENT ILLNESS: This is a 76 y/o female with a past medical history of Hypertension, Hypothyroidism, CKD. Who presents to the emergency department with increased right flank pain, N/V and chills since this morning. Patient was seen earlier today for same, d/c with Bactrim Rx, f/u with Urology this week for stent removal. Urethral stent placed 06/2016 Patient reports the pain became worse, with episodes of vomiting and chills. Patient reports the pain as constant spasms, increased with movement. Patient reports her urine is very concentrated , without dysuria. Patient denies fever, cough, SOB, dizziness, CP, diarrhea. ER course was notable for: (1) CT- severe Right [place] perinephretic edema (2) CKD- Bun 48, Cr 3.0 (3) Glucose 142 Recent Travel: None PAST MEDICAL HISTORY: See HPI PAST SURGICAL HISTORY: Appendectomy Tonsillectomy Lap Cholecystectomy R- Breast Cyst removal Urethral Stent Social History: Smoking: Former 2005 Alcohol: None Drugs: None Lives with daughter, retired Family History: Non-contributory Allergies Penicillins Allergy (Intermediate, Verified 10/09/16 17:04) rash HOME MEDICATIONS: Home Medications Medication Instructions Recorded Aspirin [ASA -] 81 mg PO DAILY 10/09/16 Escitalopram Oxalate [Lexapro -] 20 mg PO DAILY 10/09/16 Sulfamethoxazole/Trimethoprim 1 each PO BID #20 tablet 10/09/16 [Bactrim Ds Tablet] REVIEW OF SYSTEMS CONSTITUTIONAL: chills Absent: fever, diaphoresis, generalized weakness, malaise, loss of appetite, weight change HEENT: Absent: rhinorrhea, nasal congestion, throat pain, throat swelling, difficulty swallowing, mouth swelling, ear pain, eye pain, visual changes CARDIOVASCULAR: Absent: chest pain, syncope, palpitations, irregular heart rate, lightheadedness , peripheral edema RESPIRATORY: Absent: cough, shortness of breath, dyspnea with exertion, orthopnea, wheezing, stridor, hemoptysis GASTROINTESTINAL: nausea, vomiting Absent: abdominal pain, abdominal distension, diarrhea, constipation, melena, hematochezia GENITOURINARY: right flank pain, Absent: dysuria, frequency, urgency, hesitancy, hematuria, genital pain MUSCULOSKELETAL: Absent: myalgia, arthralgia, joint swelling, back pain, neck pain SKIN: Absent: rash, itching, pallor HEMATOLOGIC/IMMUNOLOGIC: Absent: easy bleeding, easy bruising, lymphadenopathy, frequent infections ENDOCRINE: Absent: unexplained weight gain, unexplained weight loss, heat intolerance, cold intolerance NEUROLOGIC: Absent: headache, focal weakness or paresthesias, dizziness, unsteady gait, seizure, mental status changes, bladder or bowel incontinence PSYCHIATRIC: Absent: anxiety, depression, suicidal or homicidal ideation, hallucinations. PHYSICAL EXAMINATION Vital Signs - 24 hr 10/09/16 22:44 Temperature 98.2 F Pulse Rate 74 Respiratory 20 Rate Blood Pressure 118/50 O2 Sat by Pulse 96 Oximetry (%) GENERAL: Awake, alert, and fully oriented, in no acute distress. HEAD: Normal with no signs of trauma. EYES: Pupils equal, round and reactive to light, extraocular movements intact, sclera anicteric, conjunctiva clear. No lid lag. EARS, NOSE, THROAT: Ears normal, nares patent, oropharynx clear without exudates. Moist mucous membranes. NECK: Normal range of motion, supple without lymphadenopathy, JVD, or masses. LUNGS: Breath sounds equal, clear to auscultation bilaterally. No wheezes, and no crackles. No accessory muscle use. HEART: Regular rate and rhythm, normal S1 and S2 without murmur, rub or gallop. ABDOMEN: Soft, nontender, not distended, normoactive bowel sounds, no guarding, no rebound, no masses. No hepatomegaly or splenomegaly. MUSCULOSKELETAL: Right CVA tenderness. Normal range of motion at all joints. No bony deformities or tenderness. No Left CVA tenderness. UPPER EXTREMITIES: 2+ pulses, warm, well-perfused. No cyanosis. No clubbing. No peripheral edema. LOWER EXTREMITIES: 2+ pulses, warm, well-perfused. No calf tenderness. No peripheral edema. NEUROLOGICAL: Cranial nerves II-XII intact. Normal speech. Normal gait. PSYCHIATRIC: Cooperative. Good eye contact. Appropriate mood and affect. SKIN: Warm, dry, normal turgor, no rashes or lesions noted, normal capillary refill. Laboratory Results - last 24 hr 3 10/09/16 10/09/16 10/09/16 17:15 17:15 17:15 WBC 9.3 D RBC 4.09 Hgb 11.6 D Hct 33.9 D MCV 82.9 MCHC 34.1 RDW 13.7 D Plt Count 247 MPV 9.3 D Neutrophils % 80.2 D Lymphocytes % 11.4 D Monocytes % 6.4 Eosinophils % 1.8 Basophils % 0.2 INR 1.00 PTT (Actin FS) 26.6 Sodium 135 L Potassium 3.9 Chloride 99 Carbon Dioxide 23 Anion Gap 13 BUN 48 H D Creatinine 3.0 H D Creat Clearance w eGFR 15.25 Random Glucose 142 H D Lactic Acid Calcium 8.7 Total Bilirubin 0.1 L D AST 15 ALT 10 D Alkaline Phosphatase 89 Creatine Kinase Cancelled Troponin I Cancelled Total Protein 7.1 Albumin 3.6 Urine Color Urine Appearance Urine pH Ur Specific [place] Urine Protein Urine Glucose (UA) Urine Ketones Urine Blood Urine Nitrite Urine Bilirubin Urine Urobilinogen Ur Leukocyte Esterase Urine RBC Urine WBC Ur Epithelial Cells Amorphous Urates Urine Bacteria Blood Type Antibody Screen 3 10/09/16 10/09/16 10/09/16 17:15 17:15 17:15 WBC RBC Hgb Hct MCV MCHC RDW Plt Count MPV Neutrophils % Lymphocytes % Monocytes % Eosinophils % Basophils % INR PTT (Actin FS) Sodium Potassium Chloride Carbon Dioxide Anion Gap BUN Creatinine Creat Clearance w eGFR Random Glucose Lactic Acid 1.972 Calcium Total Bilirubin AST ALT Alkaline Phosphatase Creatine Kinase 56 Troponin I < 0.03 L Total Protein Albumin Urine Color Urine Appearance Urine pH Ur Specific [place] Urine Protein Urine Glucose (UA) Urine Ketones Urine Blood Urine Nitrite Urine Bilirubin Urine Urobilinogen Ur Leukocyte Esterase Urine RBC Urine WBC Ur Epithelial Cells Amorphous Urates Urine Bacteria Blood Type A POSITIVE Antibody Screen Negative 3 10/09/16 21:43 WBC RBC Hgb Hct MCV MCHC RDW Plt Count MPV Neutrophils % Lymphocytes % Monocytes % Eosinophils % Basophils % INR PTT (Actin FS) Sodium Potassium Chloride Carbon Dioxide Anion Gap BUN Creatinine Creat Clearance w eGFR Random Glucose Lactic Acid Calcium Total Bilirubin AST ALT Alkaline Phosphatase Creatine Kinase Troponin I Total Protein Albumin Urine Color Yellow Urine Appearance Clear Urine pH 5.5 Ur Specific [place] 1.015 Urine Protein 1+ H Urine Glucose (UA) Negative Urine Ketones Negative Urine Blood 1+ H Urine Nitrite Negative Urine Bilirubin Negative Urine Urobilinogen 0.2 e.u/dl Ur Leukocyte Esterase 1+ H Urine RBC 10-20 Urine WBC 10-20 Ur Epithelial Cells Few Amorphous Urates Few Urine Bacteria Few Blood Type Antibody Screen Heart Score/ECG Review - ECG Intrepretation Comment:: 10/09/16 17:51 Normal Sinus Rhythm, 66bpm. Normal ECG. ASSESSMENT/PLAN: This is a 76 y/o female with a PMHx of: HTN, Hypothyroidism, CKD. Admitted for Severe Hydronephrosis, Right Flank Pain or further evaluation of their emergent condition. Plan: 1. Hydronephrosis - Severe - Likely secondary to structural defect - s/p urethral stent removal earlier today - Appreciate Urology Consult- stent placement 2. Right Flank Pain - Likely secondary infection as evidence by UA +leukocyte esterase, pain - Urine Culture-pending - Levofloxacn, Bactrim, Morphine, Percocet given in ED - Gentle IVF - Strict INOs - Pain Management- Morphine Sulfate prn - Continue ABX renal dosing - Monitor CBC, vitals 3. Elevated Serum Glucose - Likely secondary to infection - Monitor BMP - Consider HgbA1C if levels continue to elevate 4. HTN - Controlled - Monitor BP - Continue home med 5. Hypothyroidism - Continue home med - TSH in am 6. CKD - Cr at baseline - Monitor BMP - f/u with renal in outpatient - Avoid NSAIDs 7. FEN - D5 1/ NS@ 42cc/hr - Replete lytes prn - NPO 8. DVT Prophylaxis - OOB - SCDs - Heparin SQ Code Status: Full Code Dispo: Requires Inpatient Care Problem List - Problem (1) Hydronephrosis due to ureteral stricture Code(s): N13.1 - HYDRONEPHROSIS W URETERAL STRICTURE, NEC (2) Perinephritis Code(s): N15.9 - RENAL TUBULO-INTERSTITIAL DISEASE, UNSPECIFIED (3) Right flank pain Code(s): R10.9 - UNSPECIFIED ABDOMINAL PAIN (4) Acute on chronic renal failure Code(s): N17.9 - ACUTE KIDNEY FAILURE, UNSPECIFIED N18.9 - CHRONIC KIDNEY DISEASE, UNSPECIFIED (5) Blood glucose elevated Code(s): R73.9 - HYPERGLYCEMIA, UNSPECIFIED (6) Hypothyroidism Code(s): E03.9 - HYPOTHYROIDISM, UNSPECIFIED (7) HTN (hypertension) Code(s): I10 - ESSENTIAL (PRIMARY) HYPERTENSION (8) DVT prophylaxis Code(s): [id number] - Visit type - Emergency Visit Emergency Visit: Yes ED Registration Date: 10/09/16 Care time: The patient presented to the Emergency Department on the above date and was hospitalized for further evaluation of their emergent condition. - New Patient This patient is new to me today: Yes Date on this admission: 10/09/16 - Critical Care Critical Care patient: No
[2016-10-10] MEDS: morphine CARPU-JECT 2 MG/1 ML DISP.SYRIN IVPUSH PRN (05:30)
[2016-10-10] MEDS: ONDANSETRON 4 MG/2 ML VIAL IVPUSH PRN ×2 (06:04→15:34)
[2016-10-10 08:29] LABS: BASOPHIL 0.3 % (0-2.0); EOSINOPHIL 0.5 % (0-4.5); MCH 27.2 pg (25.7-33.7); MCHC 32.6 g/dl (32.0-36.0); MEAN CELL VOLUME 83.3 fl (80-96); MEAN PLT VOLUME 9.1 fl (7.5-11.1); PLATELET COUNT 190 K/MM3 (134-434); RDW 13.9 % (11.6-15.6); WHITE BLOOD COUNT 9.6 K/mm3 (4.0-10.8)
[2016-10-10 08:35] LABS: ANION GAP 10 (8-16); CALCIUM 8.8 mg/dl (8.4-10.2); CO2 23 mmol/L (22-28); CREATININE 3.8 mg/dl (0.6-1.3); GLUCOSE,RANDOM 124 mg/dl (74-106)
--- NOTE | 2016-10-10 08:45 | PN ---
Physical Exam: SUBJECTIVE: Patient seen and examined, patient reports lower right flank pain OBJECTIVE: patient is a 76 y/o female with a past medical history of Hypertension, Hypothyroidism, CKD. patient was admitted from the emergency department for right hydronephrosis and ZAC. Vital Signs Period Temp Pulse Resp BP Sys/Rashid Pulse Ox Last 24 Hr 98.2 F-98.5 F 74-74 18-20 118-120/50-71 96-96 GENERAL: The patient is awake, alert, and fully oriented, in no acute distress. HEAD: Normal with no signs of trauma. EYES: PERRL, extraocular movements intact, sclera anicteric, conjunctiva clear. No ptosis. ENT: Ears normal, nares patent, oropharynx clear without exudates, moist mucous membranes. NECK: Trachea midline, full range of motion, supple. LUNGS: Breath sounds equal, clear to auscultation bilaterally, no wheezes, no crackles, no accessory muscle use. HEART: Regular rate and rhythm, S1, S2 without murmur, rub or gallop. ABDOMEN: Soft, nontender, nondistended, normoactive bowel sounds, no guarding, no rebound, no hepatosplenomegaly, no masses. right CVA tenderness EXTREMITIES: 2+ pulses, warm, well-perfused, no edema. NEUROLOGICAL: Cranial nerves II through XII grossly intact. Normal speech, gait not observed. PSYCH: Normal mood, normal affect. SKIN: Warm, dry, normal turgor, no rashes or lesions noted Laboratory Results - last 24 hr 10/10/16 10/10/16 07:44 07:44 WBC 9.6 RBC 3.76 Hgb 10.2 L D Hct 31.4 L MCV 83.3 MCHC 32.6 RDW 13.9 Plt Count 190 D MPV 9.1 Neutrophils % 83.0 H Lymphocytes % 8.8 D Monocytes % 7.4 Eosinophils % 0.5 Basophils % 0.3 Sodium 138 Potassium 4.7 D Chloride 105 Carbon Dioxide 23 Anion Gap 10 BUN 53 H Creatinine 3.8 H D Random Glucose 124 H Calcium 8.8 Active Medications Generic Name Dose Route Start Last Admin Trade Name Freq PRN Reason Stop Dose Admin Levofloxacin 100 mls @ 100 mls/hr 10/09/16 22:00 10/09/16 22:00 Levaquin 500 Mg Premixed Ivpb - IVPB 100 mls/hr DAILY AUGUST Administration Dextrose/Sodium Chloride 1,000 mls @ 60 mls/hr 10/09/16 23:45 D5-1/2ns - IV ASDIR AUGUST Morphine Sulfate 2 mg 10/09/16 23:50 10/10/16 05:30 Morphine Injection - IVPUSH 2 mg Q6H PRN Administration PAIN Ondansetron HCl 4 mg 10/09/16 23:51 10/10/16 06:04 Zofran Injection IVPUSH 4 mg Q6H PRN Administration NAUSEA AND/OR VOMITING IMAGING ct of abd: right hydronephrosis ASSESSMENT/PLAN: 1. : Hydronephrosis - s/p urethral sent (07/15) pt reports she passed urethral stent 10/09. - case discussed with Dr Plascencia, pt private urologist, will place urethral stent tomm in AM - low grade temp noted, no leukocytosis noted, will change abx to rocephin, pt has received rocephin, denies any adverse reaction - prn pain medication - urology (Nuzhat) consulted and following 2) cardiology hypertension - continue procardia and bystolic - b/p at goal diastolic congestive heart failure - continue demadex - pt euvolemic 3) nephrology acute on chronic kidney failure - creatine 3.8, likely secondary to obstructive uropathy, baseline 2.8 - repeat bmp in AM F/E/N - low sodium diet - replete lytes prn ppx -oob - scd - hold ac due to pending or - zantac Code Status: Full Code Dispo: Requires Inpatient Care Visit type - Emergency Visit Emergency Visit: Yes ED Registration Date: 10/09/16 Care time: The patient presented to the Emergency Department on the above date and was hospitalized for further evaluation of their emergent condition. - New Patient This patient is new to me today: No - Critical Care Critical Care patient: No - Discharge Referral Referred to [facility] Med [facility] No
[2016-10-10] MEDS: OXYCODONE/APAP 5/325MG COMBO TABLET PO PRN ×3 (09:32→21:22)
[2016-10-10] MEDS: LEVOFLOXACIN 500 MG IVPB 100 ML IVPB SCH (09:32)
--- NOTE | 2016-10-10 13:03 | EKG ---
Test Reason : Blood Pressure : / mmHG Vent. Rate : 066 BPM Atrial Rate : 066 BPM P-R Int : 182 ms QRS Dur : 078 ms QT Int : 406 ms P-R-T Axes : 028 010 058 degrees QTc Int : 425 ms NORMAL SINUS RHYTHM NORMAL ECG WHEN COMPARED WITH ECG OF 26-JUN-2016 05:57, NO SIGNIFICANT CHANGE WAS FOUND Confirmed by BEATRIZ SORIA MD ([id number]) on 10/10/2016 1:02:48 PM Referred By: DANIEL GUERRA Confirmed By:BEATRIZ SORIA MD
[2016-10-10] MEDS: ESCITALOPRAM OXALATE 20 MG TABLET (FP) PO SCH (15:12)
[2016-10-10] MEDS: CEFTRIAXONE 100 ML IVPB SCH (15:12)
[2016-10-10] MEDS: LACTOBACILLUS ACIDOPHILUS 1 EACH TAB (FP) PO SCH (15:12)
[2016-10-10] MEDS: TORSEMIDE 20 MG TABLET (FP) PO SCH (15:12)
[2016-10-11] MEDS: OXYCODONE/APAP 5/325MG COMBO TABLET PO PRN (04:00)
[2016-10-11] MEDS ORDERED: traMADol HCL 50 MG TABLET PO PRN (08:04)
[2016-10-11 08:44] LABS: BASOPHIL 0.4 % (0-2.0); EOSINOPHIL 1.5 % (0-4.5); MCH 27.8 pg (25.7-33.7); MCHC 32.9 g/dl (32.0-36.0); MEAN CELL VOLUME 84.4 fl (80-96); MEAN PLT VOLUME 9.4 fl (7.5-11.1); NEUTROPHILS 88.6 % (42.8-82.8); PLATELET COUNT 175 K/MM3 (134-434); RDW 13.9 % (11.6-15.6); WHITE BLOOD COUNT 9.2 K/mm3 (4.0-10.8)
[2016-10-11] MEDS: SODIUM CHLORIDE 0.45% 1,000 ML IV SCH (08:46)
[2016-10-11] MEDS: LEVOTHYROXINE NA 50 MCG TABLET (FP) PO SCH (08:46)
[2016-10-11] MEDS: ONDANSETRON 4 MG/2 ML VIAL IVPUSH PRN ×2 (08:47→21:36)
[2016-10-11 09:01] LABS: ALBUMIN 2.9 g/dl (3.5-5.0); ALK PHOS 77 U/L (32-92); ANION GAP 12 (8-16); BILIRUBIN,TOTAL 0.3 mg/dl (0.2-1.0); CALCIUM 8.6 mg/dl (8.4-10.2); CO2 22 mmol/L (22-28); CREATININE 4.4 mg/dl (0.6-1.3); GLUCOSE,RANDOM 86 mg/dl (74-106); SGOT/AST 12 U/L (10-42)
[2016-10-11 09:16] LABS: COCKROFT - GAULT NT
[2016-10-11 09:49] LABS: SGPT/ALT 10 U/L (10-40)
[2016-10-11] MEDS: PANTOPRAZOLE 40 MG TABLET (FP) PO SCH (09:54)
[2016-10-11] MEDS: ESCITALOPRAM OXALATE 20 MG TABLET (FP) PO SCH (09:54)
[2016-10-11] MEDS: TORSEMIDE 20 MG TABLET (FP) PO SCH (09:54)
[2016-10-11] MEDS: LACTOBACILLUS ACIDOPHILUS 1 EACH TAB (FP) PO SCH (09:54)
[2016-10-11] MEDS: CEFTRIAXONE 100 ML IVPB SCH (09:55)
[2016-10-11] MEDS: NIFEdipine E.R. 30 MG TABLET (FP) PO SCH (10:00)
[2016-10-11] MEDS: NEBIVOLOL 10 MG TABLET (FP) PO SCH (10:00)
[2016-10-11] MEDS: morphine CARPU-JECT 2 MG/1 ML DISP.SYRIN IVPUSH PRN ×2 (10:07→21:36)
[2016-10-11] MEDS ORDERED: LINEZOLID 600 MG PREMIX BAG 600 MG in PREMIX 300 IVPB ONE (11:15)
[2016-10-11] MEDS ORDERED: LIDOCAINE HCL 2% JELLY 10 ML CARTRIDGE ONE (12:38)
--- NOTE | 2016-10-11 12:39 | PN ---
Physical Exam: SUBJECTIVE: Patient seen and examined, pt reports ongoing pain to the right flank, radiating to the right lower abdomen. OBJECTIVE: patient is a 76 y/o female with a past medical history of Hypertension, Hypothyroidism, CKD. patient was admitted from the emergency department for right hydronephrosis and ZAC. urine culture (10/09) +VRE Vital Signs Period Temp Pulse Resp BP Sys/Rashid Pulse Ox Last 24 Hr 98 F-98.4 F 60-75 18-20 123-130/47-77 91-97 PHYSICAL EXAMINATION GENERAL: The patient is awake, alert, and fully oriented, in no acute distress. HEAD: Normal with no signs of trauma. EYES: PERRL, extraocular movements intact, sclera anicteric, conjunctiva clear. No ptosis. ENT: Ears normal, nares patent, oropharynx clear without exudates, moist mucous membranes. NECK: Trachea midline, full range of motion, supple. LUNGS: Breath sounds equal, clear to auscultation bilaterally, no wheezes, no crackles, no accessory muscle use. HEART: Regular rate and rhythm, S1, S2 without murmur, rub or gallop. ABDOMEN: Soft, nontender, nondistended, normoactive bowel sounds, no guarding, no rebound, no hepatosplenomegaly, no masses. right CVA tenderness EXTREMITIES: 2+ pulses, warm, well-perfused, no edema. NEUROLOGICAL: Cranial nerves II through XII grossly intact. Normal speech, gait not observed. PSYCH: Normal mood, normal affect. SKIN: Warm, dry, normal turgor, no rashes or lesions noted Laboratory Results - last 24 hr 10/11/16 10/11/16 07:31 07:31 WBC 9.2 RBC 3.51 L Hgb 9.8 L Hct 29.6 L MCV 84.4 MCHC 32.9 RDW 13.9 Plt Count 175 MPV 9.4 Neutrophils % 88.6 H Lymphocytes % 3.5 L D Monocytes % 6.0 Eosinophils % 1.5 D Basophils % 0.4 Sodium 136 Potassium 4.2 Chloride 102 Carbon Dioxide 22 Anion Gap 12 BUN 55 H Creatinine 4.4 H Creat Clearance w eGFR 9.80 Random Glucose 86 D Calcium 8.6 Phosphorus 5.0 H D Magnesium 2.0 Total Bilirubin 0.3 D AST 12 ALT 10 Alkaline Phosphatase 77 Total Protein 6.0 L Albumin 2.9 L Active Medications Generic Name Dose Route Start Last Admin Trade Name Freq PRN Reason Stop Dose Admin Escitalopram Oxalate 20 mg 10/10/16 13:30 10/11/16 09:54 Lexapro - PO 20 mg DAILY AUG[facility] Administration Ceftriaxone Sodium 100 mls @ 200 mls/hr 10/10/16 14:30 10/11/16 09:55 Rocephin 2gm Ivpb (Pre-Docked) IVPB 200 mls/hr DAILY AUGUST Administration Sodium Chloride 1,000 mls @ 42 mls/hr 10/11/16 00:00 10/11/16 08:46 1/2 Normal Saline IV 42 mls/hr ASDIR AUGUST Administration Lactobacillus Acidophilus 1 tab 10/10/16 14:30 10/11/16 09:54 Bacid - PO 1 tab DAILY AUGUST Administration Levothyroxine Sodium 50 mcg 10/11/16 07:00 10/11/16 08:46 Synthroid - PO 50 mcg DAILY@0700 A[facility] Administration Morphine Sulfate 2 mg 10/09/16 23:50 10/11/16 10:07 Morphine Injection - IVPUSH 2 mg Q6H PRN Administration PAIN Nebivolol 20 mg 10/11/16 10:00 10/11/16 10:00 Bystolic - PO 20 mg DAILY AUGUST Administration Nifedipine 30 mg 10/11/16 10:00 10/11/16 10:00 Procardia Xl - PO 30 mg DAILY AUGUST Administration Ondansetron HCl 4 mg 10/09/16 23:51 10/11/16 08:47 Zofran Injection IVPUSH 4 mg Q6H PRN Administration NAUSEA AND/OR VOMITING Pantoprazole Sodium 40 mg 10/11/16 10:00 10/11/16 09:54 Protonix - PO 40 mg DAILY AUGUST Administration Torsemide 10 mg 10/10/16 13:45 10/11/16 09:54 Demadex - PO 10 mg DAILY AUGUST Administration Tramadol HCl 50 mg 10/11/16 08:04 10/11/16 08:46 Ultram - PO 50 mg Q6H PRN Administration PAIN Microbiology 10/09/16 21:43 Urine - Urine Clean Catch Urine Culture - Final NO GROWTH OBTAINED 10/09/16 17:30 Blood - Peripheral Venous Blood Culture - Preliminary NO GROWTH OBTAINED AFTER 24 HOURS, INCUBATION TO CONTINUE FOR 4 DAYS. 10/09/16 17:15 Blood - Peripheral Venous Blood Culture - Preliminary NO GROWTH OBTAINED AFTER 24 HOURS, INCUBATION TO CONTINUE FOR [address] of abd: right hydronephrosis ASSESSMENT/PLAN: 1. 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 - repeat bmp in AM 4) ID - contacted by micro + VRE in urine from 10/09, questionable contaminate, repeat urine is negative, pt is pending instrumentation in OR today, concerned for bacteremia after stent placement, case discussed with Dr Lu, infectious disease, advised linezolid 600mg x 1, appreciate ID input . F/E/N - npo pending or - replete lytes prn ppx -oob - scd - hold ac due to pending or - protonix Code Status: Full Code Dispo: Requires Inpatient Care Visit type - Emergency Visit Emergency Visit: Yes ED Registration Date: 10/09/16 Care time: The patient presented to the Emergency Department on the above date and was hospitalized for further evaluation of their emergent condition. - New Patient This patient is new to me today: No - Critical Care Critical Care patient: No - Discharge Referral Referred to [facility] Med P.C.: No
[2016-10-11] MEDS ORDERED: PROPOFOL 20 ML ONE (13:18)
[2016-10-11] MEDS ORDERED: SUCCINYLCHOLINE CHLORIDE 200 MG/10 ML VIAL ONE (13:18)
[2016-10-11] MEDS ORDERED: MIDAZOLAM HCL 2 MG/2 ML SINGLE DOSE VIAL ONE (13:19)
[2016-10-11] MEDS ORDERED: ONDANSETRON 4 MG/2 ML VIAL ONE (13:59)
[2016-10-11] MEDS ORDERED: LINEZOLID 600 MG PREMIX BAG 600 MG in PREMIX 300 IVPB SCH (17:30)
[2016-10-11] MEDS: LINEZOLID 600 MG PREMIX BAG 600 MG in PREMIX 300 IVPB SCH (22:29)
[2016-10-12] MEDS: SODIUM CHLORIDE 0.45% 1,000 ML IV SCH (06:22)
[2016-10-12] MEDS: LEVOTHYROXINE NA 50 MCG TABLET (FP) PO SCH (06:24)
[2016-10-12 08:54] LABS: ALBUMIN 2.9 g/dl (3.5-5.0); ALK PHOS 83 U/L (32-92); ANION GAP 9 (8-16); BILIRUBIN,TOTAL 0.1 mg/dl (0.2-1.0); CO2 24 mmol/L (22-28); CREATININE 4.1 mg/dl (0.6-1.3); GLUCOSE,RANDOM 95 mg/dl (74-106); MAGNESIUM 2.1 mg/dL (1.8-2.4); PHOSPHOROUS 5.1 mg/dl (2.5-4.6); SGOT/AST 20 U/L (10-42); SGPT/ALT 12 U/L (10-40); TOT PROT 6.4 g/dl (6.4-8.3)
--- NOTE | 2016-10-12 09:02 | PN ---
Progress Note (short form) - Note Progress Note: ID Consult dictated + Urine c/s VRE- likely colonizer/ contaminant Ureteral stricture s/p R ureteral stent replacement CKD PCN allergy Perioperative antibiotic prohylaxis with linezolid D/C linezolid after this morning's dose
[2016-10-12 09:16] LABS: BASOPHIL 0.2 % (0-2.0); EOSINOPHIL 0.9 % (0-4.5); MCHC 33.3 g/dl (32.0-36.0); MEAN CELL VOLUME 84.2 fl (80-96); NEUTROPHILS 87.2 % (42.8-82.8); PLATELET COUNT 173 K/MM3 (134-434); RDW 13.8 % (11.6-15.6); WHITE BLOOD COUNT 8.5 K/mm3 (4.0-10.8)
--- NOTE | 2016-10-12 09:36 | CONS ---
DATE OF CONSULTATION: DATE OF DICTATION: 10/12/2016 INFECTIOUS DISEASE CONSULTATION HISTORY OF PRESENT ILLNESS: The patient is a 76-year-old female with a history of right ureteral stricture and chronic kidney disease, evaluated for positive urine culture. The patient has a history of right ureteral stricture. She underwent right ureteral stent placement in June 2016. She was scheduled to have a replacement of that stent this week. She presented to the emergency room on Sunday, October 09, 2016, with complaints of right flank pain, back pain, nausea and vomiting. The right ureteral stent had apparently migrated and later fell out. She was evaluated and prescribed Bactrim for possible urinary tract infection. She denied any associated fever or chills. The patient was seen in consultation by Urology and was scheduled to undergo replacement of the right ureteral stent. As part of her initial laboratory data, her urinalysis showed a mild degree of pyuria, and urine culture grew 40,000 to 50,000 colonies of VRE. She did complain of some dysuria. No complaints of hematuria. No complaints of fever or chills. Prior to her procedure yesterday, she was prophylactically given a dose of linezolid (preoperatively and postoperatively). At the present time she is awake and alert. She complains of some nausea and right flank discomfort. She denies any dysuria or hematuria. No fever or chills. Repeat urine culture, as well as blood cultures have been negative. PAST MEDICAL HISTORY: Positive for right ureteral stricture, history of chronic kidney disease, hypertension, hypothyroidism, squamous cell carcinoma of the vulva. PAST SURGICAL HISTORY: Status post appendectomy and cholecystectomy. ALLERGIES: PENICILLIN. The patient is unaware of the nature of the PENICILLIN allergy. States she had a reaction in childhood. MEDICATIONS: Include aspirin, Lexapro, Bactrim. SOCIAL HISTORY: Former smoker. Lives at home. Denies recent hospitalization. REVIEW OF SYSTEMS: Neurologic: No loss of consciousness, seizure activity or focal weakness. Cardiac: Negative for chest pain or palpitations. Respiratory: Negative for cough or sputum production. Gastrointestinal: Negative for vomiting or diarrhea. Genitourinary: As per HPI. LABORATORY DATA: White count 9.2, hematocrit 29.6, platelet count 175. BUN 55, creatinine 4.4. Urinalysis with 10-20 white cells and 10-20 red cells. Blood cultures negative. Repeat urine culture negative. Chest x-ray negative for acute infiltrate. PHYSICAL EXAMINATION: General: The patient is awake and alert. She is not acutely toxic-appearing. Vital Signs: Temperature 98.6, blood pressure 132/58, pulse 73 and regular, respirations 20 per minute. HEENT: Sclerae anicteric. Cardiac: Heart sounds S1, S2. Lungs: Clear. Abdomen: Soft. There is right flank and right paraumbilical tenderness to palpation. No Extremities: Negative for edema. IMPRESSION: 1. Positive urine culture for vancomycin-resistant enterococci, likely contaminant versus colonizer. 2. Ureteral stricture, status post replacement of ureteral stent. 3. Chronic kidney disease. 4. PENICILLIN allergy. PLAN: Continue perioperative prophylaxis with linezolid; will discontinue after this morning's dose and observe. Outpatient Urology follow-up. Thank you for the kind referral. CRITICAL CARE TIME: 35 minutes. GABE MARTINEZ M.D. [id number]
[2016-10-12] MEDS: NIFEdipine E.R. 30 MG TABLET (FP) PO SCH (10:02)
[2016-10-12] MEDS: TORSEMIDE 20 MG TABLET (FP) PO SCH (10:03)
[2016-10-12] MEDS: NEBIVOLOL 10 MG TABLET (FP) PO SCH (10:05)
[2016-10-12] MEDS: PANTOPRAZOLE 40 MG TABLET (FP) PO SCH (10:05)
[2016-10-12] MEDS: ESCITALOPRAM OXALATE 20 MG TABLET (FP) PO SCH (10:05)
[2016-10-12] MEDS: LACTOBACILLUS ACIDOPHILUS 1 EACH TAB (FP) PO SCH (10:05)
[2016-10-12] MEDS: LINEZOLID 600 MG PREMIX BAG 300 ML IVPB SCH ×2 (10:07→21:56)
[2016-10-12] MEDS ORDERED: PT OWN MED DRAWER 7, Y5N ONE (13:00)
[2016-10-12] MEDS: ONDANSETRON 4 MG/2 ML VIAL IVPUSH PRN (13:03)
[2016-10-12] MEDS: SUCRALFATE 1 GM TABLET (FP) PO SCH ×3 (13:04→21:56)
--- NOTE | 2016-10-12 13:24 | PN ---
Progress Note (short form) - Note Progress Note: ANESTHESIOLOGY POST-OP CHECK 76F s/p cystoscopy and right ureteral stent under general anesthesia, POD #1. C /o of nausea, denies vomiting. REleived with zofran. Pain 2/10 and tolerable. Ambulating and voiding. Vital Signs Temperature 98.6 F 10/12/16 06:00 Pulse Rate 73 10/12/16 06:00 Respiratory Rate 20 10/12/16 07:48 Blood Pressure 132/58 10/12/16 06:00 O2 Sat by Pulse Oximetry (%) 98 10/12/16 07:48 Active Medications Escitalopram Oxalate (Lexapro -) 20 mg PO DAILY [facility] Last Admin: 10/12/16 10:05 Dose: 20 mg Linezolid (Zyvox 600 Mg Premix Bag (Restricted To Id) -) 300 mls @ 300 mls/hr IVPB BID [facility] Last Admin: 10/12/16 10:07 Dose: 300 mls/hr Lactobacillus Acidophilus (Bacid -) 1 tab PO DAILY [facility] Last Admin: 10/12/16 10:05 Dose: 1 tab Levothyroxine Sodium (Synthroid -) 50 mcg PO DAILY@0700 [facility] Last Admin: 10/12/16 06:24 Dose: 50 mcg Morphine Sulfate (Morphine Injection -) 2 mg IVPUSH Q6H PRN PRN Reason: PAIN Last Admin: 10/11/16 21:36 Dose: 2 mg Nebivolol (Bystolic -) 20 mg PO DAILY [facility] Last Admin: 10/12/16 10:05 Dose: 20 mg Nifedipine (Procardia Xl -) 30 mg PO DAILY [facility] Last Admin: 10/12/16 10:02 Dose: 30 mg Ondansetron HCl (Zofran Injection) 4 mg IVPUSH Q6H PRN PRN Reason: NAUSEA AND/OR VOMITING Last Admin: 10/12/16 13:03 Dose: 4 mg Pantoprazole Sodium (Protonix -) 40 mg PO DAILY [facility] Last Admin: 10/12/16 10:05 Dose: 40 mg Sucralfate (Carafate -) 1 gm PO QID [facility] Last Admin: 10/12/16 13:04 Dose: 1 gm Torsemide (Demadex -) 10 mg PO DAILY [facility] Last Admin: 10/12/16 10:03 Dose: 10 mg Tramadol HCl (Ultram -) 50 mg PO Q6H PRN PRN Reason: PAIN Last Admin: 10/11/16 08:46 Dose: 50 mg Gen: Awake, alert. No apparent anesthesia complications. Pain well controlled. Spoke with nurse, asked to provide ordered PRN zofran. Continue management as per primary team.
--- NOTE | 2016-10-12 14:23 | PN ---
Physical Exam: SUBJECTIVE: Patient seen and examined, reports dull ache to right flank, denies any tactile fever or chills. OBJECTIVE: patient is a 76 y/o female with a past medical history of Hypertension, Hypothyroidism, CKD. patient was admitted from the emergency department for right hydronephrosis and ZAC. pt is s/p right UVJ stent (10/11) post op day 1 Vital Signs Period Temp Pulse Resp BP Sys/Rashid Pulse Ox Last 24 Hr 98.5 F-99.2 F 69-78 17-24 120-143/57-92 94-99 Intake & Output 10/09/16 10/10/16 10/11/16 10/12/16 23:59 23:59 23:59 23:59 Intake Total 360 1656 4330 775 Output Total 130 353 4848 Balance 482 840 6576 775 Weight 73 kg 74.984 kg 74.984 kg GENERAL: The patient is awake, alert, and fully oriented, in no acute distress. HEAD: Normal with no signs of trauma. EYES: PERRL, extraocular movements intact, sclera anicteric, conjunctiva clear. No ptosis. ENT: Ears normal, nares patent, oropharynx clear without exudates, moist mucous membranes. NECK: Trachea midline, full range of motion, supple. LUNGS: Breath sounds equal, clear to auscultation bilaterally, no wheezes, crackles noted to billateral lower lobes, no accessory muscle use. HEART: Regular rate and rhythm, S1, S2 without murmur, rub or gallop. ABDOMEN: Soft, nontender, nondistended, normoactive bowel sounds, no guarding, no rebound, no hepatosplenomegaly, no masses. EXTREMITIES: 2+ pulses, warm, well-perfused, no edema. NEUROLOGICAL: Cranial nerves II through XII grossly intact. Normal speech, gait not observed. PSYCH: Normal mood, normal affect. SKIN: Warm, dry, normal turgor, no rashes or lesions noted Laboratory Results - last 24 hr 10/12/16 10/12/16 08:05 08:05 WBC 8.5 RBC 3.66 Hgb 10.3 L Hct 30.9 L MCV 84.2 MCHC 33.3 RDW 13.8 Plt Count 173 MPV 9.0 Neutrophils % 87.2 H Lymphocytes % 4.6 L D Monocytes % 7.1 Eosinophils % 0.9 Basophils % 0.2 Sodium 137 Potassium 5.2 H D Chloride 104 Carbon Dioxide 24 Anion Gap 9 BUN 48 H Creatinine 4.1 H Creat Clearance w eGFR 10.64 Random Glucose 95 Calcium 9.0 Phosphorus 5.1 H Magnesium 2.1 Total Bilirubin 0.1 L D AST 20 D ALT 12 Alkaline Phosphatase 83 Total Protein 6.4 Albumin 2.9 L Active Medications Generic Name Dose Route Start Last Admin Trade Name Freq PRN Reason Stop Dose Admin Escitalopram Oxalate 20 mg 10/10/16 13:30 10/12/16 10:05 Lexapro - PO 20 mg DAILY [facility] Administration Linezolid 300 mls @ 300 mls/hr 10/12/16 10:15 10/12/16 10:07 Zyvox 600 Mg Premix Bag (Restricted To Id) - IVPB 300 mls/hr BID AUGUST Administration Lactobacillus Acidophilus 1 tab 10/10/16 14:30 10/12/16 10:05 Bacid - PO 1 tab DAILY AUGUST Administration Levothyroxine Sodium 50 mcg 10/11/16 07:00 10/12/16 06:24 Synthroid - PO 50 mcg DAILY@0700 A[facility] Administration Morphine Sulfate 2 mg 10/09/16 23:50 10/11/16 21:36 Morphine Injection - IVPUSH 2 mg Q6H PRN Administration PAIN Nebivolol 20 mg 10/11/16 10:00 10/12/16 10:05 Bystolic - PO 20 mg DAILY [facility] Administration Nifedipine 30 mg 10/11/16 10:00 10/12/16 10:02 Procardia Xl - PO 30 mg DAILY [facility] Administration Ondansetron HCl 4 mg 10/09/16 23:51 10/12/16 13:03 Zofran Injection IVPUSH 4 mg Q6H PRN Administration NAUSEA AND/OR VOMITING Pantoprazole Sodium 40 mg 10/11/16 10:00 10/12/16 10:05 Protonix - PO 40 mg DAILY [facility] Administration Sucralfate 1 gm 10/12/16 14:00 10/12/16 13:04 Carafate - PO 1 gm QID AUGUST Administration Torsemide 10 mg 10/10/16 13:45 10/12/16 10:03 Demadex - PO 10 mg DAILY AUGUST Administration Tramadol HCl 50 mg 10/11/16 08:04 10/11/16 08:46 Ultram - PO 50 mg Q6H PRN Administration PAIN Microbiology 10/09/16 17:30 Blood - Peripheral Venous Blood Culture - Preliminary NO GROWTH OBTAINED AFTER 48 HOURS, INCUBATION TO CONTINUE FOR 3 DAYS. 10/09/16 17:15 Blood - Peripheral Venous Blood Culture - Preliminary NO GROWTH OBTAINED AFTER 48 HOURS, INCUBATION TO CONTINUE FOR 3 DAYS. 10/09/16 21:43 Urine - Urine Clean Catch Urine Culture - Final NO GROWTH OBTAINED IMAGING ct of abd: right hydronephrosis ASSESSMENT/PLAN: 1. 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 - New Patient This patient is new to me today: No - Critical Care Critical Care patient: No - Discharge Referral Referred to [facility] No
[2016-10-12] MEDS ORDERED: ACETAMINOPHEN 325 MG TABLET (FP) PO PRN (14:27)
--- NOTE | 2016-10-12 19:58 | OP ---
DATE OF OPERATION: 10/11/2016 PREOPERATIVE DIAGNOSIS: Obstructive right kidney with tortuous and obstructive ureter with urinary tract infection. POSTOPERATIVE DIAGNOSIS: Obstructive right kidney with tortuous and obstructive ureter with urinary tract infection. PROCEDURE: Cystoscopy, right retrograde pyelogram, right ureteral stent placement. ANESTHESIA: General. SURGEON: Jerry Pinzon M.D. FINDINGS: Tortuous ureter with hydronephrosis. PREOPERATIVE INDICATION: The patient is a 76-year-old female with a history of obstructive right kidney. She has been managed with indwelling ureteral stent for a tortuous ureter. She had been doing well and was scheduled to have outpatient followup for stent change, however the stent fell out by itself over the weekend at home. She is suffering from elevated creatinine and right sided flank pain. She subjectively had fever with UTI; however, her urine culture is currently negative. OPERATION: Patient was brought to the OR, placed on the table in the supine position, given general anesthesia and IV antibiotics and placed in the modified lithotomy position. The groin was then prepped and draped sterilely. Cystoscopy was performed. Urethra and bladder were unremarkable. The right ureteral orifice was visualized. A wire was passed into the right distal ureter just above the ureter where there was an obstruction. Retrograde pyelogram was performed which revealed tortuosity of the ureter. After manipulating the ureter, an open-end catheter was placed in the mid ureter, and the ureter was drained. After this was done, a wire was more easily passed up into the right kidney. 24 Double J ureteral stent then followed one loop in the renal pelvis and one loop in the bladder. The bladder was emptied. The patient was woken up. Caity [id number]
[2016-10-13] MEDS: LEVOTHYROXINE NA 50 MCG TABLET (FP) PO SCH (06:36)
[2016-10-13 08:51] LABS: ALK PHOS 84 U/L (32-92); ANION GAP 12 (8-16); BILIRUBIN,TOTAL 0.5 mg/dl (0.2-1.0); CALCIUM 8.9 mg/dl (8.4-10.2); CO2 23 mmol/L (22-28); CREATININE 3.5 mg/dl (0.6-1.3); GLUCOSE,RANDOM 101 mg/dl (74-106); MAGNESIUM 1.9 mg/dL (1.8-2.4); PHOSPHOROUS 3.6 mg/dl (2.5-4.6); SGOT/AST 17 U/L (10-42); SGPT/ALT 13 U/L (10-40); TOT PROT 6.6 g/dl (6.4-8.3)
[2016-10-13 09:05] LABS: BASOPHIL 0.3 % (0-2.0); EOSINOPHIL 2.3 % (0-4.5); MCH 27.3 pg (25.7-33.7); MCHC 32.9 g/dl (32.0-36.0); MEAN PLT VOLUME 9.4 fl (7.5-11.1); PLATELET COUNT 185 K/MM3 (134-434); RDW 14.2 % (11.6-15.6); WHITE BLOOD COUNT 8.3 K/mm3 (4.0-10.8)
[2016-10-13] MEDS: LINEZOLID 600 MG PREMIX BAG 600 MG in PREMIX 300 IVPB SCH (10:10)
[2016-10-13] MEDS ORDERED: PT OWN MED DRAWER 7, Y5N ONE (10:17)
[2016-10-13] MEDS: ESCITALOPRAM OXALATE 20 MG TABLET (FP) PO SCH (10:21)
[2016-10-13] MEDS: PANTOPRAZOLE 40 MG TABLET (FP) PO SCH (10:21)
[2016-10-13] MEDS: LINEZOLID 600 MG PREMIX BAG 300 ML IVPB SCH ×2 (10:21→21:20)
[2016-10-13] MEDS: SUCRALFATE 1 GM TABLET (FP) PO SCH ×4 (10:21→21:19)
[2016-10-13] MEDS: NIFEdipine E.R. 30 MG TABLET (FP) PO SCH (10:22)
[2016-10-13] MEDS: NEBIVOLOL 10 MG TABLET (FP) PO SCH (10:23)
[2016-10-13] MEDS: LACTOBACILLUS ACIDOPHILUS 1 EACH TAB (FP) PO SCH (10:23)
[2016-10-13] MEDS: TORSEMIDE 20 MG TABLET (FP) PO SCH (10:23)
--- NOTE | 2016-10-13 13:40 | PN ---
[id number]: patient is a 76 y/o female with a past medical history of Hypertension, Hypothyroidism, CKD. patient was admitted from the emergency department for right hydronephrosis and ZAC. pt is s/p right UVJ stent (10/11) post op day 2 Vital Signs Period Temp Pulse Resp BP Sys/Rashid Pulse Ox Last 24 Hr 98.1 F-98.9 F 65-71 19-20 104-135/46-58 92-99 PHYSICAL EXAMINATION GENERAL: The patient is awake, alert, and fully oriented, in no acute distress. HEAD: Normal with no signs of trauma. EYES: PERRL, extraocular movements intact, sclera anicteric, conjunctiva clear. No ptosis. ENT: Ears normal, nares patent, oropharynx clear without exudates, moist mucous membranes. NECK: Trachea midline, full range of motion, supple. LUNGS: Breath sounds equal, clear to auscultation bilaterally, no wheezes, clear to bilateral lower lobes, no accessory muscle use. HEART: Regular rate and rhythm, S1, S2 without murmur, rub or gallop. ABDOMEN: Soft, nontender, nondistended, normoactive bowel sounds, no guarding, no rebound, no hepatosplenomegaly, no masses. EXTREMITIES: 2+ pulses, warm, well-perfused, no edema. NEUROLOGICAL: Cranial nerves II through XII grossly intact. Normal speech, gait not observed. PSYCH: Normal mood, normal affect. SKIN: Warm, dry, normal turgor, no rashes or lesions noted Laboratory Results - last 24 hr 10/13/16 10/13/16 07:35 07:35 WBC 8.3 RBC 3.67 Hgb 10.0 L Hct 30.4 L MCV 83.0 MCHC 32.9 RDW 14.2 Plt Count 185 MPV 9.4 Neutrophils % 81.0 Lymphocytes % 7.9 L D Monocytes % 8.5 Eosinophils % 2.3 D Basophils % 0.3 Sodium 136 Potassium 4.0 D Chloride 101 Carbon Dioxide 23 Anion Gap 12 BUN 44 H Creatinine 3.5 H Creat Clearance w eGFR 12.77 Random Glucose 101 Calcium 8.9 Phosphorus 3.6 D Magnesium 1.9 Total Bilirubin 0.5 D AST 17 ALT 13 Alkaline Phosphatase 84 Total Protein 6.6 Albumin 3.0 L Active Medications Generic Name Dose Route Start Last Admin Trade Name Freq PRN Reason Stop Dose Admin Acetaminophen 650 mg 10/12/16 14:27 10/12/16 21:55 Tylenol - PO 650 mg Q4H PRN Administration FEVER OR PAIN Escitalopram Oxalate 20 mg 10/10/16 13:30 10/13/16 10:21 Lexapro - PO 20 mg DAILY AUGUST Administration Linezolid 300 mls @ 300 mls/hr 10/12/16 10:15 10/13/16 10:21 Zyvox 600 Mg Premix Bag (Restricted To Id) - IVPB 300 mls/hr BID AUGUST Administration Lactobacillus Acidophilus 1 tab 10/10/16 14:30 10/13/16 10:23 Bacid - PO 1 tab DAILY AUGUST Administration Levothyroxine Sodium 50 mcg 10/11/16 07:00 10/13/16 06:36 Synthroid - PO 50 mcg DAILY@0700 AUGUST Administration Morphine Sulfate 2 mg 10/09/16 23:50 10/11/16 21:36 Morphine Injection - IVPUSH 2 mg Q6H PRN Administration PAIN Nebivolol 20 mg 10/11/16 10:00 10/13/16 10:23 Bystolic - PO 20 mg DAILY AUGUST Administration Nifedipine 30 mg 10/11/16 10:00 10/13/16 10:22 Procardia Xl - PO 30 mg DAILY AUGUST Administration Ondansetron HCl 4 mg 10/09/16 23:51 10/12/16 13:03 Zofran Injection IVPUSH 4 mg Q6H PRN Administration NAUSEA AND/OR VOMITING Pantoprazole Sodium 40 mg 10/11/16 10:00 10/13/16 10:21 Protonix - PO 40 mg DAILY AUGUST Administration Sucralfate 1 gm 10/12/16 14:00 10/13/16 10:21 Carafate - PO 1 gm QID AUGUST Administration Torsemide 10 mg 10/10/16 13:45 10/13/16 10:23 Demadex - PO 10 mg DAILY AUGUST Administration Tramadol HCl 50 mg 10/11/16 08:04 10/11/16 08:46 Ultram - PO 50 mg Q6H PRN Administration PAIN Microbiology 10/09/16 17:30 Blood - Peripheral Venous Blood Culture - Preliminary NO GROWTH OBTAINED AFTER 72 HOURS, INCUBATION TO CONTINUE FOR 2 DAYS. 10/09/16 17:15 Blood - Peripheral Venous Blood Culture - Preliminary NO GROWTH OBTAINED AFTER 72 HOURS, INCUBATION TO CONTINUE FOR 2 DAYS. 10/09/16 21:43 Urine - Urine Clean Catch Urine Culture - Final NO GROWTH OBTAINED IMAGING ct of abd: right hydronephrosis ASSESSMENT/PLAN: 1. : Hydronephrosis - s/p urethral sent (07/15), passed urethral stent 10/09, right urethral stent placement, POD # 2 - continue prn ultram,pt reports pain is much improved - continue zofran prn - urology (Nuzhat) consulted and following 2) cardiology hypertension - continue procardia and bystolic, b/p at goal diastolic congestive heart failure - pt euvolemic, continue demadex - strict monitoring of I&O 3) nephrology acute on chronic kidney failure - creatine 3.5, baseline 2.8 - repeat bmp in AM 4) ID - + VRE in urine from 10/09, repeat urine is negative, linezolid (10/11 -) l - ID (Aly) consulted and following F/E/N - low sodium diet - replete lytes prn ppx -oob - scd - heparin - protonix Code Status: Full Code Dispo: Requires Inpatient Care Visit type - Emergency Visit Emergency Visit: Yes ED Registration Date: 10/09/16 Care time: The patient presented to the Emergency Department on the above date and was hospitalized for further evaluation of their emergent condition. - New Patient This patient is new to me today: No - Critical Care Critical Care patient: No - Discharge Referral Referred to [facility] No
[2016-10-13 22:57] VITALS: PULSE 65
[2016-10-14 06:06] VITALS: BP 133/56; TEMP 98.1
[2016-10-14] MEDS: LEVOTHYROXINE NA 50 MCG TABLET (FP) PO SCH (06:23)
[2016-10-14 08:42] LABS: CALCIUM 8.9 mg/dl (8.4-10.2); COCKROFT - GAULT 18.275; CREATININE 3.1 mg/dl (0.6-1.3)
[2016-10-14] MEDS: SUCRALFATE 1 GM TABLET (FP) PO SCH (09:28)
[2016-10-14] MEDS: ESCITALOPRAM OXALATE 20 MG TABLET (FP) PO SCH (09:28)
[2016-10-14] MEDS: TORSEMIDE 20 MG TABLET (FP) PO SCH (09:28)
[2016-10-14] MEDS: NIFEdipine E.R. 30 MG TABLET (FP) PO SCH (09:28)
[2016-10-14] MEDS: LACTOBACILLUS ACIDOPHILUS 1 EACH TAB (FP) PO SCH (09:28)
[2016-10-14] MEDS: NEBIVOLOL 10 MG TABLET (FP) PO SCH (09:28)
[2016-10-14] MEDS: PANTOPRAZOLE 40 MG TABLET (FP) PO SCH (09:29)
[2016-10-14] MEDS: LINEZOLID 600 MG PREMIX BAG 300 ML IVPB SCH (09:29)
--- NOTE | 2016-10-14 11:59 | DS ---
Physical Exam: SUBJECTIVE: Patient seen and examined OBJECTIVE: Vital Signs Period Temp Pulse Resp BP Sys/Rashid Pulse Ox Last 24 Hr 98.1 F-98.3 F 65-71 18-19 132-135/53-58 96-99 PHYSICAL EXAM GENERAL: The patient is awake, alert, and fully oriented, in no acute distress. HEAD: Normal with no signs of trauma. EYES: PERRL, extraocular movements intact, sclera anicteric, conjunctiva clear. ENT: Ears normal, nares patent, oropharynx clear without exudates, moist mucous membranes. NECK: Trachea midline, full range of motion, supple. LUNGS: Breath sounds equal, clear to auscultation bilaterally, no wheezes, no crackles, no accessory muscle use. HEART: Regular rate and rhythm, S1, S2 without murmur, rub or gallop. ABDOMEN: Soft, nontender, nondistended, normoactive bowel sounds, no guarding, no rebound, no hepatosplenomegaly, no masses. EXTREMITIES: 2+ pulses, warm, well-perfused, no edema. NEUROLOGICAL: Cranial nerves II through XII grossly intact. Normal speech, gait not observed. PSYCH: Normal mood, normal affect. SKIN: Warm, dry, normal turgor, no rashes or lesions noted. LABS Laboratory Results - last 24 hr 10/14/16 07:25 Sodium 138 Potassium 3.8 Chloride 102 Carbon Dioxide 27 Anion Gap 9 BUN 37 H Creatinine 3.1 H Random Glucose 86 Calcium 8.9 HOSPITAL COURSE: Date of Admission:10/09/16 Date of Discharge: 10/14/16 Minutes to complete discharge: 45 Discharge Summary Reason For Visit: PERINEPHRITIS Current Active Problems Blood glucose elevated (Acute) DVT prophylaxis (Acute) HTN (hypertension) (Acute) Perinephritis (Acute) Condition: Stable - Instructions Referrals: Momo Alicia MD [Primary Care Provider] - - Home Medications Comprehensive Discharge Medication List: Ambulatory Orders Aspirin [ASA -] 81 mg PO DAILY 10/09/16 Escitalopram Oxalate [Lexapro -] 20 mg PO DAILY 10/09/16 Sulfamethoxazole/Trimethoprim [Bactrim Ds Tablet] 1 each PO BID #20 tablet 10/09 - Discharge Referral Referred to [facility] No
== END 2016-10-14 12:34 | disposition home or self-care (01) | DRG 683 ==
LOC: FER 17:00 → FM/S 21:57
PROVIDERS: ADMIT Internal Medicine; ATTEND Nurse Practitioner Family
PROC: BT1DZZZ Fluoroscopy of Right Kidney, Ureter and Bladder (ICD-10-PCS; 2016-10-11)
PROC: 0T768DZ Dilation of Right Ureter with Intraluminal Device, Via Natural or Artificial Opening Endoscopic (ICD-10-PCS; principal; 2016-10-11 14:11)
DX: N17.9 Acute kidney failure, unspecified (principal); I13.0 Hypertensive heart and chronic kidney disease with heart failure and stage 1 through stage 4 chronic kidney disease, or unspecified chronic kidney disease; I50.30 Unspecified diastolic (congestive) heart failure; N13.6 Pyonephrosis; D64.9 Anemia, unspecified; N28.89 Other specified disorders of kidney and ureter; E03.9 Hypothyroidism, unspecified; R73.9 Hyperglycemia, unspecified; N18.9 Chronic kidney disease, unspecified; Z85.89 Personal history of malignant neoplasm of other organs and systems; Z88.0 Allergy status to penicillin
CPT/HCPCS: 36415; 71010-TC; 72170-TC; 74176-TC; 76000-TC; 80048; 80053; 81003; 81015; 82550; 83605; 83735; 84100; 84484; 85025; 85610; 85730; 86850; 86900; 86901; 87040; 87086; 93005; 94760; 99285-25

== ENCOUNTER 2017-01-13 06:27 | Day surgery (SDC) | payer BC ==
[2017-01-12 11:53] VITALS: BMI 28.1
[2017-01-13] MEDS ORDERED: IBUPROFEN 800 MG/8 ML IJ IVPB PRN (07:37)
[2017-01-13] MEDS ORDERED: ACETAMINOPHEN 1000 MG/100 ML VIAL (NON FORMULARY) IVPB ONE (07:37)
[2017-01-13] MEDS ORDERED: DESFLURANE GAS 240 ML BOTTLE IH ONE (07:38)
--- NOTE | 2017-01-13 07:38 | HP ---
History & Physical Update - History History: No Change - Physical Physical: No Change - Assessment Assessment: No Change - Plan Plan: No Change
[2017-01-13] MEDS ORDERED: DEXTROSE 5%-0.45% SALINE 1,000 ML IV SCH (07:45)
[2017-01-13] MEDS ORDERED: LIDOCAINE HCL/PF 2% SDV 5ML VIAL ONE (08:01)
[2017-01-13] MEDS ORDERED: PROPOFOL 20 ML ONE (08:01)
[2017-01-13] MEDS ORDERED: LEVOFLOXACIN 500 MG PREMIX BAG IVPB ONE (08:09)
[2017-01-13] MEDS ORDERED: MIDAZOLAM HCL 2 MG/2 ML SINGLE DOSE VIAL ONE (08:14)
[2017-01-13] MEDS ORDERED: PROMETHAZINE HCL 25 MG/1 ML VIAL IVPUSH PRN (08:47)
[2017-01-13] MEDS ORDERED: oxyCODONE HCL 5 MG TABLET PO PRN (08:47)
[2017-01-13] MEDS ORDERED: ONDANSETRON 4 MG/2 ML VIAL IVPUSH PRN (08:47)
--- NOTE | 2017-01-13 08:48 | OP ---
Operative Note - Note: Operative Date: 01/13/17 Operation: ureteral stent exchange, right
[2017-01-13] MEDS ORDERED: ACETAMINOPHEN INJECTION 100 ML IVPB ONE (08:59)
--- NOTE | 2017-01-13 09:08 | OP ---
DATE OF OPERATION: 01/13/2017 PREOPERATIVE DIAGNOSIS: Right ureteropelvic junction obstruction, right hydronephrosis. POSTOPERATIVE DIAGNOSIS: Right ureteropelvic junction obstruction, right hydronephrosis. PROCEDURE: Exchange of right ureteral stent. SURGEON: Jerry Pinzon MD ANESTHESIA: General. SPECIMEN: Old stent. DRAINS: A 24 x 6 double-J metal ureteral stent. PREOPERATIVE INDICATIONS: The patient is a 76-year-old female with a history of UPJ obstruction. She has been having recurrent UTIs over the last couple of years and has required stenting to maintain the patency of the ureter. This has helped reduce her UTIs. She comes to the OR for exchange of her stent. A metal stent will be placed, which can last for a full year. THE OPERATION: The patient was brought to the OR, placed on the table in the supine position, given general anesthesia and IV antibiotics, and placed in the modified lithotomy position. The groin was prepped and draped sterilely. Cystoscopy was performed. The bladder appeared to be unremarkable. There was a stent emerging from the right ureteral orifice. A grasping forceps was used to pull it out through the urethral meatus, and the wire was passed up into the right kidney under fluoroscopic guidance. An open-ended catheter was placed over the wire especially designed for stent placement into the right kidney. A retrograde pyelogram was performed, confirmed the placement of the tip of the catheter in the renal pelvis, and again defined an enlarged and dilated renal pelvis. The wire was removed, and the metal stent was passed through the catheter, and one loop was seen in the mid pole and the other loop was left in the bladder. The bladder was emptied. The patient was woken up. JERRY PINZON M.D. [id number]
[2017-01-13 10:55] VITALS: BP 123/57; PULSE 59; TEMP 97.9
--- NOTE | 2017-01-16 15:10 | PATH ---
Surgical Pathology Report Patient Name: CLAY RAZA [facility]. Rec. #: [id number] /Age/Gender: 1940 (Age: 76) / F Account: [id number] Location: [facility] Taken: 01/13/2017 Received: 01/13/2017 Reported: 01/16/2017 Physicians: Jerry Pinzon M.D. Specimen(s) Received REMOVED STENT Clinical History Urinary incontinence Final Diagnosis STENT, RIGHT URETER, REMOVAL: STENT (GROSS EXAM). Electronically Signed Christopher Hale M.D. Gross Description Received fresh labeled "removed stent" is a 36 cm in length blue-green, coiled portion of tubing, consistent with a ureteral stent. No soft tissue is present. No sections are submitted, gross only. 01/13/2017 [facility]01[facility]13[facility]2017
== END 2017-01-13 11:00 | disposition home or self-care (01) ==
LOC: JASU-SURG 06:27
PROVIDERS: ATTEND Urology
PROC: BT1DYZZ Fluoroscopy of Right Kidney, Ureter and Bladder using Other Contrast (ICD-10-PCS; 2017-01-13)
PROC: 0T768DZ Dilation of Right Ureter with Intraluminal Device, Via Natural or Artificial Opening Endoscopic (ICD-10-PCS; principal; 2017-01-13 08:00)
PROC: 0TP98DZ Removal of Intraluminal Device from Ureter, Via Natural or Artificial Opening Endoscopic (ICD-10-PCS; 2017-01-13 08:00)
DX: N13.1 Hydronephrosis with ureteral stricture, not elsewhere classified (principal)
CPT/HCPCS: 76000-TC; 88300-TC; 94760

== ENCOUNTER 2017-12-27 06:02 | Day surgery (SDC) | payer BC ==
[2017-12-25 16:10] VITALS: BMI 28.2
[2017-12-27] MEDS ORDERED: LIDOCAINE HCL/PF 2% SDV 5ML VIAL ONE ×2 (07:20→07:33)
[2017-12-27] MEDS ORDERED: PROPOFOL 20 ML ONE ×4 (07:20→07:33)
[2017-12-27] MEDS ORDERED: CLINDAMYCIN PHOSPHATE 600 MG/4 ML VIAL ONE ×2 (07:20→07:33)
[2017-12-27] MEDS ORDERED: SUCCINYLCHOLINE CHLORIDE 200 MG/10 ML VIAL ONE ×2 (07:20→07:33)
[2017-12-27] MEDS ORDERED: ETOMIDATE 20 MG/10 ML AMPUL IVPUSH ONE (07:49)
[2017-12-27] MEDS ORDERED: ceFAZolin SODIUM 1 GM VIAL IVPB ONE (08:25)
[2017-12-27] MEDS ORDERED: ePHEDrine SULFATE 50 MG/1 ML AMPULE ONE (08:53)
--- NOTE | 2017-12-27 09:14 | HP ---
History & Physical Update - History History: No Change - Physical Physical: No Change - Assessment Assessment: No Change - Plan Plan: No Change
[2017-12-27] MEDS ORDERED: DEXTROSE 5%-0.45% SALINE 1,000 ML IV SCH (09:15)
[2017-12-27] MEDS ORDERED: IBUPROFEN 800 MG/8 ML IJ IVPB SCH (09:15)
[2017-12-27] MEDS ORDERED: ACETAMINOPHEN 1000 MG/100 ML VIAL (NON FORMULARY) IVPB ONE (09:15)
[2017-12-27] MEDS ORDERED: ACETAMINOPHEN INJECTION 100 ML IVPB ONE (09:31)
--- NOTE | 2017-12-27 09:46 | OP ---
DATE OF OPERATION: 12/27/2017 PREOPERATIVE DIAGNOSIS: Right ureteropelvic junction obstruction, right hydronephrosis. POSTOPERATIVE DIAGNOSIS: Right ureteropelvic junction obstruction, right hydronephrosis. PROCEDURE: Right ureteroscopy, retrograde pyelogram, right ureteral stent change. ANESTHESIA: General, Rashaun Dempsey MD. SURGEON: Jerry Pinzon MD ESTIMATED BLOOD LOSS: None. SPECIMENS: Old stent. FINDINGS: Stent placed in the proper position. PREOPERATIVE INDICATIONS: The patient is a 77-year-old female with a chronic UPJ obstruction with recurrent UTIs. She has a chronic indwelling stent which has helped. She has been stented with a metal stent which lasts a full year and comes today for change. DESCRIPTION OF PROCEDURE: The patient brought to the OR, placed on the table in the supine position, given general anesthesia and IV antibiotics and placed in the modified lithotomy position. The groins prepped and draped sterilely. Cystoscopy was performed. The bladder was visualized. There was some debris within the bladder; however, otherwise no tumors or stones were seen. The stent seen was emerging from the right ureteral orifice. This was removed with a grasping forceps. A wire was passed up on the right side up to the midureter. There was some difficulty passing the wire beyond the midureter. An open-ended catheter was placed over the wire to help guide the wire better, and it still could not be passed above the midureter. It was curling in the ureter. A retrograde pyelogram did show that we were in the midureter and contrast filled the collecting system. At this point rigid ureteroscopy was performed to help guide the wire. Distal ureter appeared to be intact. At the of the obstruction there was some debris; however, a wire was guided into the true lumen into the right kidney under fluoroscopic guidance. Retrograde pyelogram confirmed placement in the collecting system. The scope was removed, and then the open-ended catheter was placed over the wire and was used to guide the stent into proper position. A loop was seen in the midpole and the loop was seen in the bladder. Bladder was emptied. Patient was woken up. Caity [id number]
[2017-12-27] MEDS ORDERED: IBUPROFEN 800 MG/8 ML IJ IVPB ONE (09:58)
[2017-12-27] MEDS ORDERED: ONDANSETRON 4 MG/2 ML VIAL IVPUSH PRN (10:34)
[2017-12-27] MEDS ORDERED: LACTATED RINGERS SOLUTION 1,000 ML IV SCH (10:45)
[2017-12-27 11:29] VITALS: TEMP 97.6
[2017-12-27 14:40] VITALS: BP 115/60; PULSE 62
--- NOTE | 2017-12-28 08:51 | PATH ---
Surgical Pathology Report Patient Name: CLAY RAZA Med. Rec. #: [id number] /Age/Gender: 1940 (Age: 77) / F Account: [id number] Location: [facility] Taken: 12/27/2017 Received: 12/27/2017 Reported: 12/28/2017 Physicians: Jerry Pinzon M.D. Specimen(s) Received OLD RIGHT URETERAL STENT Clinical History Right hydronephrosis Final Diagnosis URETERAL STENT, OLD, RIGHT, REMOVAL: URETERAL STENT. MACROSCOPIC DIAGNOSIS. Electronically Signed Heidy Zepeda M.D. Gross Description Received in container labeled "right ureteral stent", is a segment of marsh, metal stent measuring 34 cm in length and 0.2 cm in diameter. No sections taken, for gross examination only. CHRISTAL/12/27/2017 lizbeth/12/27/2017
== END 2017-12-27 13:15 | disposition home or self-care (01) ==
LOC: JASU-SURG 06:02
PROVIDERS: ATTEND Urology
PROC: BT1DYZZ Fluoroscopy of Right Kidney, Ureter and Bladder using Other Contrast (ICD-10-PCS; 2017-12-27)
PROC: 0TP97DZ Removal of Intraluminal Device from Ureter, Via Natural or Artificial Opening (ICD-10-PCS; principal; 2017-12-27 08:00)
PROC: 0T767DZ Dilation of Right Ureter with Intraluminal Device, Via Natural or Artificial Opening (ICD-10-PCS; 2017-12-27 08:00)
DX: N13.1 Hydronephrosis with ureteral stricture, not elsewhere classified (principal); Z87.440 Personal history of urinary (tract) infections
CPT/HCPCS: 76000-TC-FY; 88300-TC; 94760; J0131

== ENCOUNTER 2018-03-08 07:20 | Day surgery (SDC) | payer BC ==
[2018-03-01 11:52] VITALS: BMI 28.5
[2018-03-08] MEDS ORDERED: PROPOFOL 20 ML ONE ×2 (07:33)
[2018-03-08 07:46] VITALS: TEMP 98.2
[2018-03-08 09:50] VITALS: BP 125/56; PULSE 68
--- NOTE | 2018-03-09 14:26 | PATH ---
Surgical Pathology Report Patient Name: CLAY RAZA [facility]. Rec. #: [id number] /Age/Gender: 1940 (Age: 77) / F Account: [id number] Location: [facility] Taken: 03/08/2018 Received: 03/08/2018 Reported: 03/09/2018 Physicians: Edgardo Ortiz M.D. Specimen(s) Received A: DUODENUM B: ANTRUM C: SIGMOID Clinical History Dysphagia, anemia Postoperative diagnosis: Iron deficiency anemia, gastritis, colonic polyp Final Diagnosis A. DUODENUM, BIOPSY: DUODENAL MUCOSA WITHOUT SIGNIFICANT PATHOLOGIC FINDINGS. B. STOMACH, ANTRUM, BIOPSY: GASTRIC ANTRAL MUCOSA WITH MILD CHRONIC GASTRITIS. IMMUNOHISTOCHEMICAL STAIN FOR H. PYLORI IS NEGATIVE. C. SIGMOID COLON, BIOPSY: TUBULAR ADENOMA. Electronically Signed Heidy Zepeda M.D. Gross Description A. Received in formalin, labeled "duodenum" is a magdaleno, irregular portion of soft tissue measuring 0.4 cm. in greatest dimension. The specimen is submitted in toto in one cassette. B. Received in formalin, labeled "antrum" are 2 magdaleno, irregular portions of soft tissue measuring 0.3 and 0.5 cm. in greatest dimension. The specimens are submitted in toto in one cassette. C. Received in formalin, labeled "sigmoid" is a magdaleno, irregular portion of soft tissue measuring 0.5 cm. in greatest dimension. The specimen is submitted in toto in one cassette. 03/08/201803/08/2018
== END 2018-03-08 10:00 | disposition home or self-care (01) ==
LOC: FASU-ENDO 07:20
PROVIDERS: ATTEND Internal Medicine Gastroenterology
PROC: 0DBN8ZX Excision of Sigmoid Colon, Via Natural or Artificial Opening Endoscopic, Diagnostic (ICD-10-PCS; principal; 2018-03-08 08:37)
PROC: 0DB98ZX Excision of Duodenum, Via Natural or Artificial Opening Endoscopic, Diagnostic (ICD-10-PCS; 2018-03-08 08:37)
PROC: 0DB68ZX Excision of Stomach, Via Natural or Artificial Opening Endoscopic, Diagnostic (ICD-10-PCS; 2018-03-08 08:37)
PROC: 0D748DZ Dilation of Esophagogastric Junction with Intraluminal Device, Via Natural or Artificial Opening Endoscopic (ICD-10-PCS; 2018-03-08 08:37)
DX: D50.9 Iron deficiency anemia, unspecified (principal); K57.30 Diverticulosis of large intestine without perforation or abscess without bleeding; K64.4 Residual hemorrhoidal skin tags; K44.9 Diaphragmatic hernia without obstruction or gangrene; K22.2 Esophageal obstruction; D12.5 Benign neoplasm of sigmoid colon; K29.50 Unspecified chronic gastritis without bleeding
CPT/HCPCS: 88305-TC; 88342-TC

== ENCOUNTER 2018-04-09 13:02 | Day surgery (SDC) | payer BC ==
[2018-04-09] MEDS ORDERED: IRON SUCROSE INJECTION 100 MG in SODIUM CHLORIDE 100 ML IVPB ONE (14:00)
[2018-04-09 15:34] VITALS: BP 130/68; PULSE 65; TEMP 97.9
== END 2018-04-09 15:34 | disposition home or self-care (01) ==
LOC: JINFUSION 13:02
PROVIDERS: ATTEND Internal Medicine Nephrology
PROC: 3E033GC Introduction of Other Therapeutic Substance into Peripheral Vein, Percutaneous Approach (ICD-10-PCS; principal; 2018-04-09)
DX: D50.9 Iron deficiency anemia, unspecified (principal)
CPT/HCPCS: 96365; J1756

== ENCOUNTER 2018-08-29 15:27 | Observation (INO) | payer BC ==
--- NOTE | 2018-08-29 15:36 | PDOC ---
Rapid Medical Evaluation Time Seen by Provider: 08/29/18 15:33 Medical Evaluation: Allergies Allergy/AdvReac Type Severity Reaction Status Date / Time Penicillins Allergy Intermediate rash Verified 08/29/18 15:33 08/29/18 15:33 I have performed a brief in-person evaluation of this patient. The patient presents with a chief complaint of:hematuria x4 days sent by urology Pertinent physical exam findings:nad I have ordered the following:labs US The patient will proceed to the ED for further evaluation. 08/29/18 15:33 08/29/18 15:34 Discharge Disposition - Diagnosis Hematuria - Referrals - Patient Instructions - Post Discharge Activity
[2018-08-29 16:00] LABS: BASO % 0.9 % (0-2.0); EOS % 2.8 % (0-4.5); HEMATOCRIT 38.3 % (32.4-45.2); HEMOGLOBIN 12.4 GM/dL (10.7-15.3); LYMPH % 16.6 % (8-40); MCH 29.5 pg (25.7-33.7); MCHC 32.5 g/dl (32.0-36.0); MONO % 8.6 % (3.8-10.2); NEUT % 71.1 % (42.8-82.8); PLATELET COUNT 255 K/MM3 (134-434); RBC 4.21 M/mm3 (3.60-5.2); RDW 13.1 % (11.6-15.6); WHITE BLOOD COUNT 7.1 K/mm3 (4.0-10.0)
--- NOTE | 2018-08-29 16:11 | PDOC ---
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 Patient states the blood is brown in color. She denies passing any clots. The patient called her Urologist Dr. Pinzon who advised the patient to report to the ER for further evaluation. She is complaining of chills, fatigue, and weakness. The patient denies any fever, chills, nausea, vomiting, diarrhea, constipation, hematochezia, or abdominal pain. Denies any chest pain or shortness of breath. Denies any dysuria, frequency, urgency, or hesitancy. Allergies: Penicillins Social History: None reported Surgical History: RT urethral stent placement, cardiac cath. 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) CVA: No COPD: No CHF: Yes Dementia: No Diabetes: No GI Disorders: Yes (GERD,Hiatal Hernia) Disorders: Yes (RF,stent to rt urethra) HTN: Yes Hypercholesterolemia: No Liver Disease: No Seizures: No Thyroid Disease: Yes - Surgical History Appendectomy: Yes Cardiac Surgery: (Cardiac Cath many yrs ago) Cholecystectomy: Yes Orthopedic Surgery: No - Suicide/Smoking/Psychosocial Hx Smoking History: Never smoked Have you smoked in the past 12 months: No Number of Cigarettes Smoked Daily: 0 If you are a former smoker, when did you quit?: 2005 Information on smoking cessation initiated: No Hx Alcohol Use: No Drug/Substance Use Hx: No Substance Use Type: None Hx Substance Use Treatment: No <Holli Sweeney - Last Filed: 08/29/18 18:38> - Past Medical History Allergies/Adverse Reactions: Allergies Allergy/AdvReac Type Severity Reaction Status Date / Time Penicillins Allergy Intermediate rash Verified 08/29/18 15:33 Home Medications: Ambulatory Orders Escitalopram Oxalate [Lexapro -] 20 mg PO HS 12/25/17 Levothyroxine [Synthroid -] 50 mcg PO DAILY 12/25/17 Nebivolol HCl [Bystolic] 20 mg PO HS 12/25/17 Nifedipine [Procardia Xl] 30 mg PO HS 12/25/17 Torsemide 20 mg PO DAILY 12/25/17 Famotidine [Pepcid] 40 mg PO DAILY 03/01/18 Ferrous Sulfate [Iron] 325 mg PO HS 03/01/18 Pantoprazole Sodium 40 mg PO DAILY 04/09/18 Review of Systems - Review of Systems Able to Perform ROS?: Yes Comments:: 08/29/18 16:40 GENERAL/CONSTITUTIONAL: (+)Chills, weakness, fatigue. No fever. HEAD, EYES, EARS, NOSE AND THROAT: No change in vision. No ear pain or discharge. No sore throat. CARDIOVASCULAR: No chest pain or shortness of breath. RESPIRATORY: No cough, wheezing, or hemoptysis. SKIN: No rash GASTROINTESTINAL: No nausea, vomiting, diarrhea or constipation. GENITOURINARY: (+)Hematuria. No dysuria, frequency. MUSCULOSKELETAL: No joint or muscle swelling or pain. No neck or back pain. NEUROLOGIC: No headache, vertigo, loss of consciousness, or change in strength/ sensation. ENDOCRINE: No increased thirst. No abnormal weight change. HEMATOLOGIC/LYMPHATIC: No anemia, easy bleeding, or history of blood clots. ALLERGIC/IMMUNOLOGIC: No hives or skin allergy. <Flor Rivas - Last Filed: 08/29/18 16:37> *Physical Exam - Vital Signs Last Vital Signs Temp Pulse Resp BP Pulse Ox 98.4 F 76 18 107/59 L 94 L 08/29/18 15:33 08/29/18 15:33 08/29/18 15:33 08/29/18 15:33 08/29/18 15:33 - Physical Exam Comments: 08/29/18 16:41 GENERAL: Awake, alert, and fully oriented, in no acute distress. Sitting up, nontoxic appearance. HEAD: No signs of trauma EYES: PERRLA, EOMI, sclera anicteric, conjunctiva clear ENT: Auricles normal inspection, hearing grossly normal, nares patent, oropharynx clear without exudates. Moist mucosa NECK: Normal ROM, supple, no lymphadenopathy, JVD, or masses LUNGS: Breath sounds equal, clear to auscultation bilaterally. No wheezes, and no crackles HEART: Regular rate and rhythm, normal S1 and S2, no murmurs, rubs or gallops ABDOMEN: Soft, nontender, normoactive bowel sounds. No guarding, no rebound. No masses EXTREMITIES: Normal range of motion, no edema. No clubbing or cyanosis. No cords, erythema, or tenderness NEUROLOGICAL: Cranial nerves II through XII grossly intact. Normal speech. SKIN: Warm, Dry, normal turgor, no rashes or lesions noted <Flor Rivas - Last Filed: 08/29/18 16:37> - Vital Signs Last Vital Signs Temp Pulse Resp BP Pulse Ox 98.4 F 76 18 107/59 L 94 L 08/29/18 15:33 08/29/18 15:33 08/29/18 15:33 08/29/18 15:33 08/29/18 15:33 <Sierra Green - Last Filed: 08/29/18 18:02> - Vital Signs Last Vital Signs Temp Pulse Resp BP Pulse Ox 98.4 F 76 18 107/59 L 94 L 08/29/18 15:33 08/29/18 15:33 08/29/18 15:33 08/29/18 15:33 08/29/18 15:33 <Holli Sweeney - Last Filed: 08/29/18 18:38> ED Treatment Course - LABORATORY CBC & Chemistry Diagram: 08/29/18 15:47 08/29/18 15:46 - ADDITIONAL ORDERS Additional order review: Laboratory Results 08/29/18 15:47 PT with INR 11.30 INR 0.96 <RobFlor - Last Filed: 08/29/18 16:37> - LABORATORY CBC & Chemistry Diagram: 08/29/18 15:47 08/29/18 15:46 - ADDITIONAL ORDERS Additional order review: Laboratory Results 08/29/18 08/29/18 08/29/18 15:50 15:47 15:46 PT with INR 11.30 INR 0.96 Sodium 138 Potassium 3.7 Chloride 103 Carbon Dioxide 25 Anion Gap 10 BUN 36 H Creatinine 2.3 H Creat Clearance w eGFR 20.62 Random Glucose 85 Calcium 8.4 L Total Bilirubin 0.3 AST 12 L ALT 11 L Alkaline Phosphatase 104 Total Protein 7.0 Albumin 3.3 L Urine Color Red Urine Appearance Turbid Urine pH 5.0 Ur Specific Kane 1.015 Urine Protein 1+ H Urine Glucose (UA) Negative Urine Ketones Negative Urine Blood 1+ H Urine Nitrite Positive H Urine Bilirubin 2+ H Urine Urobilinogen 0.2 Ur Leukocyte Esterase 3+ H Urine WBC (Auto) 10-30 Urine RBC (Auto) >100 Urine Casts (Auto) None seen U Pathogenic Cast Auto None seen U Epithel Cells (Auto) Rare Urine Crystals (Auto) None seen Urine Bacteria (Auto) Few <Sierra Green - Last Filed: 08/29/18 18:02> - LABORATORY CBC & Chemistry Diagram: 08/29/18 15:47 08/29/18 15:46 <Holli Sweeney - Last Filed: 08/29/18 18:38> Medical Decision Making - Medical Decision Making 08/29/18 17:[address] Marr, awaiting call back. 08/29/18 17:[address] Marr. 08/29/18 17:[address] Pinzon, awaiting call back. 08/29/18 18:02 Second call placed to Dr. Pinzon, awaiting call back. <Sierra Green - Last Filed: 08/29/18 18:02> - Medical Decision Making 08/29/18 16:52 a/p: 78yo female with hematuria x 4 days -has a R ureteral stent from ureteral stricture -denies dysuria -denies urinary freq -denies lightheaded of dizziness, no cp/sob -no abd pain, n/v/d -labs sent from [facility] and ultrasound ordered -Nephro is Dr. Hay Marr, Uro: Dr. Pinzon -PMD: dr. Alicia -pt denies pain -no vaginal bleeding 08/29/18 17:29 cr at 2.3, improved from prior uti on labs 08/29/18 17:59 pt updated pt willing to stay for iv abx given stent and hx of vre case discussed with Dr. Marr who will see patient in consult call placed to Dr. Pinzon microblog sent to [facility] blood cultures ordered abx ordered 08/29/18 18:13 case discussed with [facility] who accepts pt to service 08/29/18 18:15 mild r hydro on ultrasound, stent in place 08/29/18 18:[address] Pinzon- will see patient in consult <Holli wSeeney - Last Filed: 08/29/18 18:38> *DC/Admit/Observation/Transfer - Attestations Scribe Attestion: 08/29/18 16:42 Documentation prepared by Flor Rivas, acting as medical clerk for Holli Sweeney DO. <Flor Rivas - Last Filed: 08/29/18 16:37> - Attestations Scribe Attestion: 08/29/18 18:04 Documentation prepared by Sierra Green, acting as medical clerk for Holli Sweeney DO. <Sierra Green - Last Filed: 08/29/18 18:02> - Discharge Dispostion Decision to Admit order: Yes - Attestations Physician Attestion: 08/29/18 18:14 I, Dr. Holli Sweeney DO, attest that this document has been prepared under my direction and personally reviewed by me in its entirety. I further attest, that it accurately reflects all work, treatment, procedures and medical decision -making performed by me. <Holli Sweeney - Last Filed: 08/29/18 18:38> Diagnosis at time of Disposition: Hematuria, UTI (urinary tract infection) - Discharge Dispostion Condition at time of disposition: Fair
[2018-08-29 16:20] LABS: INR 0.96 (0.83-1.09); PROTHROMBIN TIME (PATIENT) 11.3 SEC (9.7-13.0)
[2018-08-29 16:49] LABS: URINE APPEARANCE TURBID; URINE BILIRUBIN 2+ (NEGATIVE); URINE COLOR RED; URINE GLUCOSE (UA) NEGATIVE (NEGATIVE); URINE KETONE NEGATIVE (NEGATIVE); URINE LEUK ESTERASE 3+ (NEGATIVE); URINE NITRITE POSITIVE (NEGATIVE); URINE PROTEIN 1+ (NEGATIVE); URINE UROBILINOGEN 0.2 mg/dL (0.2-1.0)
[2018-08-29 17:06] LABS: ALBUMIN 3.3 g/dl (3.4-5.0); ALK PHOS 104 U/L (45-117); ANION GAP 10 MMOL/L (8-16); BILIRUBIN,TOTAL 0.3 mg/dL (0.2-1); BLOOD UREA NITROGEN 36 mg/dL (7-18); CALCIUM 8.4 mg/dL (8.5-10.1); CHLORIDE 103 mmol/L (98-107); CO2 25 mmol/L (21-32); CREATININE 2.3 mg/dL (0.55-1.3); GLUCOSE,RANDOM 85 mg/dL (74-106); POTASSIUM 3.7 mmol/L (3.5-5.1); SGOT/AST 12 U/L (15-37); SGPT/ALT 11 U/L (13-61); SODIUM 138 mmol/L (136-145)
[2018-08-29 17:22] LABS: URINE RBC >100 /hpf (0-4)
[2018-08-29 17:23] LABS: EPI CELLS RARE /HPF (0-5); URINE CRYSTALS NONE SEEN /hpf
[2018-08-29 17:24] LABS: URINE BACTERIA FEW /hpf (NEGATIVE); URINE CASTS NONE SEEN /hpf (0-8)
--- NOTE | 2018-08-29 18:18 | PN ---
Teaching Attending Note Name of Resident: Jay Lundberg ATTENDING PHYSICIAN STATEMENT I saw and evaluated the patient. I reviewed the resident's note and discussed the case with the resident. I agree with the resident's findings and plan as documented. 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 started 3 days ago and has persisted, not worsened or improved. continuous through the whole urination and every episode. no clots or dysuria. has had episode like this in the past but self resolved after a day and was never evaluated at that time. has not been treated for infection for the past 6months +. no recent changes to medications. 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 Hematuria- could be due to UTI vs obstruction vs mass. order renal/bladder u/ s. treat infection. f/u images to evaluate cause. monitor CBC and trend if necessary. instructed pt to notify RN if bleeding worsens or starts passing clots. nephro and urology consulted 2. UTI- has hx of VRE however was considered contamination and treated with bactrim more so for recent stent placement. received levaquin in the ER. will renally dose and follow up Ucx. will consider ID eval pending cx result 3. CKD- at baseline 4. Hypothyroid- cont LT4 5. HTN- controlled. will hold diuretic at this time. resume other home medications 6. DVT ppx- EAM
--- NOTE | 2018-08-29 19:33 | HP ---
CHIEF COMPLAINT: Hematuria PCP: Dr. Alicia Uro: Dr. Rojas Nephro: Dr. Marr HISTORY OF PRESENT ILLNESS: The patient is a 78 yo f w/ PMH HTN, CHF, GERD, Hypothyroidism, atrophic kidney s/p stent placement who comes into the ED c/o hematuria since monday. The patient states that monday she woke up and noticed blood in her urine. She denies dysuria at that time. Since this, the hematuria became associated with low back discomfort, generalized fatigue and subjective chills. The patient called her urologist and her heavy equipment sales associate, who instructed her to come to the emergency department. Of note, the patient has had an episode of hematuria in the past which resolved spontaneously without treatment. Patient denies fever, SOB, chest pain, abdominal pain, dysuria, suprapubic pain. ER course was notable for: (1) levaquin 750mg IV (2) UA showing blood and UTI (3) renal/bladder US w/o interval change. Recent Travel: none PAST MEDICAL HISTORY: see HPI PAST SURGICAL HISTORY: Rt ureteral stent placement for ureteral stricture Cholecystectomy Appendectomy Right breast lumpectomy (benign) Social History: Smoking: former smoker, quit 2005 Alcohol: denies Drugs: denies Family History: Sister w/ breast Ca Allergies Penicillins Allergy (Intermediate, Verified 08/29/18 15:33) rash HOME MEDICATIONS: Home Medications Medication Instructions Recorded Escitalopram Oxalate [Lexapro -] 40 mg PO HS 12/25/17 Levothyroxine [Synthroid -] 50 mcg PO DAILY 12/25/17 Nebivolol HCl [Bystolic] 20 mg PO HS 12/25/17 Nifedipine [Procardia Xl] 30 mg PO HS 12/25/17 Torsemide 20 mg PO DAILY 12/25/17 Ferrous Sulfate [Iron] 325 mg PO HS 03/01/18 REVIEW OF SYSTEMS CONSTITUTIONAL: Absent: fever, diaphoresis, malaise, loss of appetite, weight change HEENT: Absent: rhinorrhea, nasal congestion, throat pain, throat swelling, difficulty swallowing, mouth swelling, ear pain, eye pain, visual changes CARDIOVASCULAR: Absent: chest pain, syncope, palpitations, irregular heart rate, lightheadedness , peripheral edema RESPIRATORY: Absent: cough, shortness of breath, dyspnea with exertion, orthopnea, wheezing, stridor, hemoptysis GASTROINTESTINAL: Absent: abdominal pain, abdominal distension, nausea, vomiting, diarrhea, constipation, melena, hematochezia GENITOURINARY: Absent: dysuria, frequency, urgency, hesitancy, flank pain, genital pain MUSCULOSKELETAL: Absent: myalgia, arthralgia, joint swelling, back pain, neck pain SKIN: Absent: rash, itching, pallor HEMATOLOGIC/IMMUNOLOGIC: Absent: easy bleeding, easy bruising, lymphadenopathy, frequent infections ENDOCRINE: Absent: unexplained weight gain, unexplained weight loss, heat intolerance, cold intolerance NEUROLOGIC: Absent: headache, focal weakness or paresthesias, dizziness, unsteady gait, seizure, mental status changes, bladder or bowel incontinence PSYCHIATRIC: Absent: anxiety, depression, suicidal or homicidal ideation, hallucinations. PHYSICAL EXAMINATION Vital Signs - 24 hr 08/29/18 15:33 Temperature 98.4 F Pulse Rate 76 Respiratory 18 Rate Blood Pressure 107/59 L O2 Sat by Pulse 94 L Oximetry (%) GENERAL: Awake, alert, and fully oriented, in no acute distress. HEAD: Normal with no signs of trauma. EYES: Pupils equal, round and reactive to light, extraocular movements intact, sclera anicteric, conjunctiva clear. No lid lag. NECK: Normal range of motion, supple without lymphadenopathy, JVD, or masses. LUNGS: Breath sounds equal, clear to auscultation bilaterally. No wheezes, and no crackles. No accessory muscle use. HEART: Regular rate and rhythm, normal S1 and S2. 3/5 Systolic murmur heard at the LUSB w/o radiation ABDOMEN: Soft, nontender, not distended, normoactive bowel sounds, no guarding, no rebound, no masses. No CVA tenderness LOWER EXTREMITIES: 2+ pulses, warm, well-perfused. No calf tenderness. 2+ peripheral edema. NEUROLOGICAL: Cranial nerves II-X intact. Normal speech. PSYCHIATRIC: Cooperative. Good eye contact. Appropriate mood and affect. SKIN: Warm, dry, normal turgor, no rashes or lesions noted, normal capillary refill. Laboratory Results - last 24 hr 08/29/18 08/29/18 08/29/18 15:46 15:47 15:47 WBC 7.1 RBC 4.21 Hgb 12.4 Hct 38.3 D MCV 91.0 MCH 29.5 MCHC 32.5 RDW 13.1 D Plt Count 255 MPV 8.0 Absolute Neuts (auto) 5.0 Neutrophils % 71.1 Lymphocytes % 16.6 Monocytes % 8.6 Eosinophils % 2.8 Basophils % 0.9 Nucleated RBC % 0 PT with INR 11.30 INR 0.96 Sodium 138 Potassium 3.7 Chloride 103 Carbon Dioxide 25 Anion Gap 10 BUN 36 H Creatinine 2.3 H Creat Clearance w eGFR 20.62 Random Glucose 85 Calcium 8.4 L Total Bilirubin 0.3 AST 12 L ALT 11 L Alkaline Phosphatase 104 Total Protein 7.0 Albumin 3.3 L Urine Color Urine Appearance Urine pH Ur Specific [place] Urine Protein Urine Glucose (UA) Urine Ketones Urine Blood Urine Nitrite Urine Bilirubin Urine Urobilinogen Ur Leukocyte Esterase Urine WBC (Auto) Urine RBC (Auto) Urine Casts (Auto) U Pathogenic Cast Auto U Epithel Cells (Auto) Urine Crystals (Auto) Urine Bacteria (Auto) Blood Type Antibody Screen 08/29/18 08/29/18 15:47 15:50 WBC RBC Hgb Hct MCV MCH MCHC RDW Plt Count MPV Absolute Neuts (auto) Neutrophils % Lymphocytes % Monocytes % Eosinophils % Basophils % Nucleated RBC % PT with INR INR Sodium Potassium Chloride Carbon Dioxide Anion Gap BUN Creatinine Creat Clearance w eGFR Random Glucose Calcium Total Bilirubin AST ALT Alkaline Phosphatase Total Protein Albumin Urine Color Red Urine Appearance Turbid Urine pH 5.0 Ur Specific [place] 1.015 Urine Protein 1+ H Urine Glucose (UA) Negative Urine Ketones Negative Urine Blood 1+ H Urine Nitrite Positive H Urine Bilirubin 2+ H Urine Urobilinogen 0.2 Ur Leukocyte Esterase 3+ H Urine WBC (Auto) 10-30 Urine RBC (Auto) >100 Urine Casts (Auto) None seen U Pathogenic Cast Auto None seen U Epithel Cells (Auto) Rare Urine Crystals (Auto) None seen Urine Bacteria (Auto) Few Blood Type A POSITIVE Antibody Screen Negative ASSESSMENT/PLAN: The patient is a 78 yo f w/ PMH HTN, CHF, GERD, Hypothyroidism, atrophic kidney s/p stent placement who comes into the ED c/o hematuria since monday. #Acute complicated UTI w/ hematuria -Previous Cx grew VRE (40-50k CFUs, likely contaminant) sensitive to Levaquin. -s/p levaquin 750 IV in ED -will continue Levaquin 750 IV q48H based off of pt's CrCl of 24 -Holding pt home torsemide in lieu of giving fluids -urology consulted; no immediate intervention indicated, will evaluate in AM -holding off on ID consult until final cx back -Hb stable, BP stable #CKD w/ atrophic left kidney -nephro consulted -renal/bladder US done today w/o change/mass #HTN -c/w home bystolic 20mg HS #CHF -holding torsemide as above -c/w home procardia 30HS #GERD -c/w home protonix 20mg daily #Hyperthyroidism -c/w home Synthroid 50mcg daily #FEN -no fluids indicated -lytes WNL -diabetic diet #Prophy -scds; holding AC in pt w/ hematuria #Dispo -admit med surg obs Visit type - Emergency Visit Emergency Visit: Yes ED Registration Date: 08/29/18 Care time: The patient presented to the Emergency Department on the above date and was hospitalized for further evaluation of their emergent condition. - New Patient This patient is new to me today: Yes Date on this admission: 08/29/18 - Critical Care Critical Care patient: No
[2018-08-29 22:40] VITALS: BMI 29.7
[2018-08-30] MEDS ORDERED: FERROUS SO4 325 MG TABLET (FP) PO SCH (01:00)
[2018-08-30] MEDS ORDERED: ESCITALOPRAM OXALATE 20 MG TABLET (FP) PO SCH (01:00)
[2018-08-30] MEDS ORDERED: NEBIVOLOL 10 MG TABLET (FP) PO SCH ×2 (01:00→22:00)
[2018-08-30] MEDS ORDERED: NEBIVOLOL 5 MG TABLET (FP) PO SCH (01:00)
[2018-08-30 07:17] LABS: BASO % 0.3 % (0-2.0); EOS % 1.7 % (0-4.5); HEMATOCRIT 32.7 % (32.4-45.2); HEMOGLOBIN 10.9 GM/dL (10.7-15.3); LYMPH % 15.9 % (8-40); MCHC 33.5 g/dl (32.0-36.0); MEAN CELL VOLUME 89.6 fl (80-96); MEAN PLT VOLUME 8.1 fl (7.5-11.1); MONO % 9.2 % (3.8-10.2); NEUT % 72.9 % (42.8-82.8); PLATELET COUNT 200 K/MM3 (134-434); RBC 3.65 M/mm3 (3.60-5.2); WHITE BLOOD COUNT 5.9 K/mm3 (4.0-10.0)
[2018-08-30 07:40] LABS: INR 1.11 (0.83-1.09); PROTHROMBIN TIME (PATIENT) 13.1 SEC (9.7-13.0)
[2018-08-30 07:43] LABS: ACTIVATED PTT 29.9 SECONDS (25.2-36.5)
[2018-08-30 07:47] LABS: ALBUMIN 2.8 g/dl (3.4-5.0); ALK PHOS 92 U/L (45-117); ANION GAP 9 MMOL/L (8-16); BILIRUBIN,TOTAL 0.2 mg/dL (0.2-1); BLOOD UREA NITROGEN 34 mg/dL (7-18); CALCIUM 8.6 mg/dL (8.5-10.1); CHLORIDE 104 mmol/L (98-107); CO2 25 mmol/L (21-32); CREATININE 2.1 mg/dL (0.55-1.3); GLUCOSE,RANDOM 86 mg/dL (74-106); MAGNESIUM 2.5 mg/dL (1.8-2.4); PHOSPHOROUS 3.8 mg/dL (2.5-4.9); POTASSIUM 3.9 mmol/L (3.5-5.1); SGOT/AST 12 U/L (15-37); SGPT/ALT 11 U/L (13-61); SODIUM 138 mmol/L (136-145); TOT PROT 5.9 g/dl (6.4-8.2)
[2018-08-30] MEDS ORDERED: LEVOTHYROXINE NA 50 MCG TABLET (FP) PO SCH (10:00)
--- NOTE | 2018-08-30 10:14 | CON.GU ---
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 Now admitted with hematuria, weakness and uti. Mild Rt flank pain as well. Sono shows rt hydro with stent in place - Past Medical History Renal/: Yes: Renal Inusuff, UTI ...: No - Alcohol/Substance Use Hx Alcohol Use: No - Smoking History Smoking history: Former smoker Have you smoked in the past 12 months: No Aproximately how many cigarettes per day: 0 If you are a former smoker, when did you quit?: 2005 Home Medications - Allergies Allergies/Adverse Reactions: Allergies Allergy/AdvReac Type Severity Reaction Status Date / Time Penicillins Allergy Intermediate rash Verified 08/29/18 15:33 - Home Medications Home Medications: Ambulatory Orders Escitalopram Oxalate [Lexapro -] 40 mg PO HS 12/25/17 Levothyroxine [Synthroid -] 50 mcg PO DAILY 12/25/17 Nebivolol HCl [Bystolic] 20 mg PO HS 12/25/17 Nifedipine [Procardia Xl] 30 mg PO HS 12/25/17 Torsemide 20 mg PO DAILY 12/25/17 Ferrous Sulfate [Iron] 325 mg PO HS 03/01/18 Physical Exam- Vital Signs: Vital Signs Temperature 97.8 F 08/30/18 06:00 Pulse Rate 71 08/30/18 06:00 Respiratory Rate 18 08/30/18 06:00 Blood Pressure 116/72 08/30/18 06:00 O2 Sat by Pulse Oximetry (%) 97 08/29/18 23:00 Labs: CBC, BMP 08/30/18 06:00 08/30/18 06:00 Imaging - Results Ultrasound: Report Reviewed Problem List - Problems (1) Hematuria Assessment/Plan: hematuria secondary to uti. Abx as ordered, will discuss with Dr Jeromy sanchez of stent change once infection is cleared Code(s): R31.9 - HEMATURIA, UNSPECIFIED
--- NOTE | 2018-08-30 10:49 | PN ---
Teaching Attending Note Name of Resident: Bao Gilbert ATTENDING PHYSICIAN STATEMENT I saw and evaluated the patient. I reviewed the resident's note and discussed the case with the resident. I agree with the resident's findings and plan as documented. SUBJECTIVE:hematuria stopped. 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 Hematuria- could be due to UTI vs obstruction vs mass. renal u/s showing patent stent and improvement in hydronephrosis. on levaquin day 2. plan for stent exchange after infection has cleared. Hgb stable. Cr stable. nephro and urology consulted 2. UTI- has hx of VRE however was considered contamination and treated with bactrim more so for recent stent placement. on levaquin day 2. awaiting Cx 3. CKD- at baseline 4. Hypothyroid- cont LT4 5. HTN- controlled. will hold diuretic at this time. resume other home medications 6. DVT ppx- EAM 7. likely discharge later today pending Ucx report
--- NOTE | 2018-08-30 11:48 | EKG ---
Test Reason : Blood Pressure : / mmHG Vent. Rate : 068 BPM Atrial Rate : 068 BPM P-R Int : 196 ms QRS Dur : 084 ms QT Int : 398 ms P-R-T Axes : 039 023 049 degrees QTc Int : 423 ms NORMAL SINUS RHYTHM NORMAL ECG WHEN COMPARED WITH ECG OF 09-OCT-2016 17:46, NO SIGNIFICANT CHANGE WAS FOUND Confirmed by VIKKI CONDE MD ([id number]) on 08/30/2018 11:47:44 AM Referred By: Confirmed By:VIKKI CONDE MD
--- NOTE | 2018-08-30 12:09 | PN ---
Physical Exam: SUBJECTIVE: Patient seen and examined at bedside. no acute events overnight. no complaints, hematuria is improving and is now pinkish color. denies fevers, chills, cp, sob, n/v/d, clots in urine OBJECTIVE: Vital Signs Period Temp Pulse Resp BP Sys/Rashid Pulse Ox Last 24 Hr 97.3 F-98.8 F 64-76 18-18 107-144/57-78 94-97 GENERAL: Awake, alert, and fully oriented, in no acute distress. HEAD: Normal with no signs of trauma. EYES: Pupils equal, round and reactive to light, extraocular movements intact, sclera anicteric, conjunctiva clear. No lid lag. NECK: Normal range of motion, supple without lymphadenopathy, JVD, or masses. LUNGS: CTAB HEART: RRR, normal S1 and S2. 3/5 Systolic murmur heard at the LUSB w/o radiation ABDOMEN: Soft, NTND, normoactive bowel sounds, no guarding, no rebound, no masses. No CVA tenderness LOWER EXTREMITIES: 2+ pulses, warm, well-perfused. No calf tenderness. no edema NEUROLOGICAL: Cranial nerves II-X intact. Normal speech. PSYCHIATRIC: Cooperative. Good eye contact. Appropriate mood and affect. SKIN: Warm, dry, normal turgor, no rashes or lesions noted, normal capillary refill. Laboratory Results - last 24 hr 08/29/18 08/29/18 08/29/18 15:46 15:47 15:47 WBC 7.1 RBC 4.21 Hgb 12.4 Hct 38.3 D MCV 91.0 MCH 29.5 MCHC 32.5 RDW 13.1 D Plt Count 255 MPV 8.0 Absolute Neuts (auto) 5.0 Neutrophils % 71.1 Lymphocytes % 16.6 Monocytes % 8.6 Eosinophils % 2.8 Basophils % 0.9 Nucleated RBC % 0 PT with INR 11.30 INR 0.96 PTT (Actin FS) Sodium 138 Potassium 3.7 Chloride 103 Carbon Dioxide 25 Anion Gap 10 BUN 36 H Creatinine 2.3 H Creat Clearance w eGFR 20.62 Random Glucose 85 Calcium 8.4 L Phosphorus Magnesium Total Bilirubin 0.3 AST 12 L ALT 11 L Alkaline Phosphatase 104 Total Protein 7.0 Albumin 3.3 L Urine Color Urine Appearance Urine pH Ur Specific [place] Urine Protein Urine Glucose (UA) Urine Ketones Urine Blood Urine Nitrite Urine Bilirubin Urine Urobilinogen Ur Leukocyte Esterase Urine WBC (Auto) Urine RBC (Auto) Urine Casts (Auto) U Pathogenic Cast Auto U Epithel Cells (Auto) Urine Crystals (Auto) Urine Bacteria (Auto) Blood Type Antibody Screen 08/29/18 08/29/18 08/30/18 15:47 15:50 06:00 WBC 5.9 RBC 3.65 Hgb 10.9 Hct 32.7 MCV 89.6 MCH 30.0 MCHC 33.5 RDW 13.0 Plt Count 200 D MPV 8.1 Absolute Neuts (auto) 4.3 Neutrophils % 72.9 Lymphocytes % 15.9 Monocytes % 9.2 Eosinophils % 1.7 Basophils % 0.3 Nucleated RBC % 0 PT with INR INR PTT (Actin FS) Sodium Potassium Chloride Carbon Dioxide Anion Gap BUN Creatinine Creat Clearance w eGFR Random Glucose Calcium Phosphorus Magnesium Total Bilirubin AST ALT Alkaline Phosphatase Total Protein Albumin Urine Color Red Urine Appearance Turbid Urine pH 5.0 Ur Specific [place] 1.015 Urine Protein 1+ H Urine Glucose (UA) Negative Urine Ketones Negative Urine Blood 1+ H Urine Nitrite Positive H Urine Bilirubin 2+ H Urine Urobilinogen 0.2 Ur Leukocyte Esterase 3+ H Urine WBC (Auto) 10-30 Urine RBC (Auto) >100 Urine Casts (Auto) None seen U Pathogenic Cast Auto None seen U Epithel Cells (Auto) Rare Urine Crystals (Auto) None seen Urine Bacteria (Auto) Few Blood Type A POSITIVE Antibody Screen Negative 08/30/18 08/30/18 06:00 06:00 WBC RBC Hgb Hct MCV MCH MCHC RDW Plt Count MPV Absolute Neuts (auto) Neutrophils % Lymphocytes % Monocytes % Eosinophils % Basophils % Nucleated RBC % PT with INR 13.10 H INR 1.11 H PTT (Actin FS) 29.9 Sodium 138 Potassium 3.9 Chloride 104 Carbon Dioxide 25 Anion Gap 9 BUN 34 H Creatinine 2.1 H Creat Clearance w eGFR 22.90 Random Glucose 86 Calcium 8.6 Phosphorus 3.8 Magnesium 2.5 H Total Bilirubin 0.2 AST 12 L ALT 11 L Alkaline Phosphatase 92 Total Protein 5.9 L Albumin 2.8 L Urine Color Urine Appearance Urine pH Ur Specific [place] Urine Protein Urine Glucose (UA) Urine Ketones Urine Blood Urine Nitrite Urine Bilirubin Urine Urobilinogen Ur Leukocyte Esterase Urine WBC (Auto) Urine RBC (Auto) Urine Casts (Auto) U Pathogenic Cast Auto U Epithel Cells (Auto) Urine Crystals (Auto) Urine Bacteria (Auto) Blood Type Antibody Screen Active Medications Generic Name Dose Route Start Last Admin Trade Name Stephanie PRN Reason Stop Dose Admin Escitalopram Oxalate 40 mg 08/30/18 01:00 08/30/18 01:16 Lexapro - PO 40 mg HS [facility] Administration Ferrous Sulfate 325 mg 08/30/18 01:00 08/30/18 01:16 Feosol - PO 325 mg HS [facility] Administration Levofloxacin 750 mg in 150 mls @ 100 mls/hr 08/31/18 10:00 Levaquin 750 Mg Premixed Ivpb - IVPB Q48H [facility] Protocol Levothyroxine Sodium 50 mcg 08/30/18 10:00 08/30/18 10:28 Synthroid - PO 50 mcg ACBK [facility] Administration Nebivolol 20 mg 08/30/18 22:00 Bystolic - PO HS [facility] Nifedipine 30 mg 08/30/18 22:00 Procardia Xl - PO [facility] [id number] US/PELVIC / BLADDER US 08/29/18 [id number] US/KIDNEY / RENAL US Renal ultrasound Urinary bladder ultrasound Clinical information: hematuria Right hydronephrosis is seen which is probably mild to moderate. This finding decreased in comparison to a prior ultrasound study of 11/14/2017. The patient is status post interval placement of a right nephroureteral stent (12/27/2017). There is partial imaging of the right ureteral stent on the current exam. Right kidney appears unremarkable in size measuring 11.4 cm in length. No obvious calculus or mass lesion is noted. The right ureter is obscured due to overlapping bowel gas. No left hydronephrosis is noted. As on the prior study the left kidney appears atrophic measuring 7 cm in length. No obvious mass lesion or calculus is seen. Note is again made of a 3 cm cortical cyst. There is no obvious perirenal fluid collection. Evaluation of the urinary bladder demonstrates no gross calculus or mass lesion. No post void residual volume is noted. Prevoid volume 40 mL. Impression: Right hydronephrosis is noted which is probably mild to moderate. There is partial imaging of a right nephroureteral stent in place. Please see above. No left hydronephrosis is seen. Left renal atrophy. 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 #Acute complicated UTI w/ hematuria - afebrile, hemodynamically stable, Cr stable, H/H stable -Previous Cx grew VRE (40-50k CFUs, likely contaminant) sensitive to Levaquin. -s/p levaquin 750 IV in ED -c/w Levaquin 750 IV q48H based off of pt's CrCl of 24, day 2 -f/u Ucx, bcx, -f/u VRE stool cx (hx of VRE? however was considered contamination and tx w/ bactrim more for recent stent placement) -Holding pt home torsemide in lieu of giving fluids -renal u/s showing patent stent and improvement in hydronephrosis -plan for stent exchange after infection has cleared. -urology consult (Dr Pinzon) -nephro consult (Tejinder) -holding off on ID consult until final cx back #CKD w/ atrophic left kidney -nephro consulted -renal/bladder US w/o change/mass #HTN -c/w home bystolic 20mg HS #CHF -holding torsemide as above -c/w home procardia 30HS #GERD -c/w home protonix 20mg daily #Hyperthyroidism -c/w home Synthroid 50mcg daily #FEN -no fluids indicated -lytes WNL -diabetic diet #Prophy -scds; holding AC in pt w/ hematuria #Dispo -med surg obs -likely dc within 24hr Visit type - Emergency Visit Emergency Visit: Yes ED Registration Date: 08/29/18 Care time: The patient presented to the Emergency Department on the above date and was hospitalized for further evaluation of their emergent condition. - New Patient This patient is new to me today: Yes Date on this admission: 08/30/18 - Critical Care Critical Care patient: No
--- NOTE | 2018-08-30 15:48 | DS ---
Physical Exam: SUBJECTIVE: Patient seen and examined at bedside. no acute events overnight. no complaints, hematuria is improving and is now pinkish color. denies fevers, chills, cp, sob, n/v/d, clots in urine OBJECTIVE: Vital Signs Period Temp Pulse Resp BP Sys/Rashid Pulse Ox Last 24 Hr 97.3 F-98.8 F 64-71 18-18 116-144/57-78 96-97 PHYSICAL EXAM GENERAL: Awake, alert, and fully oriented, in no acute distress. HEAD: Normal with no signs of trauma. EYES: Pupils equal, round and reactive to light, extraocular movements intact, sclera anicteric, conjunctiva clear. No lid lag. NECK: Normal range of motion, supple without lymphadenopathy, JVD, or masses. LUNGS: CTAB HEART: RRR, normal S1 and S2. 3/5 Systolic murmur heard at the LUSB w/o radiation ABDOMEN: Soft, NTND, normoactive bowel sounds, no guarding, no rebound, no masses. No CVA tenderness LOWER EXTREMITIES: 2+ pulses, warm, well-perfused. No calf tenderness. no edema NEUROLOGICAL: Cranial nerves II-X intact. Normal speech. PSYCHIATRIC: Cooperative. Good eye contact. Appropriate mood and affect. SKIN: Warm, dry, normal turgor, no rashes or lesions noted, normal capillary refill. LABS Laboratory Results - last 24 hr 08/29/18 08/29/18 08/29/18 15:46 15:47 15:47 WBC 7.1 RBC 4.21 Hgb 12.4 Hct 38.3 D MCV 91.0 MCH 29.5 MCHC 32.5 RDW 13.1 D Plt Count 255 MPV 8.0 Absolute Neuts (auto) 5.0 Neutrophils % 71.1 Lymphocytes % 16.6 Monocytes % 8.6 Eosinophils % 2.8 Basophils % 0.9 Nucleated RBC % 0 PT with INR 11.30 INR 0.96 PTT (Actin FS) Sodium 138 Potassium 3.7 Chloride 103 Carbon Dioxide 25 Anion Gap 10 BUN 36 H Creatinine 2.3 H Creat Clearance w eGFR 20.62 Random Glucose 85 Calcium 8.4 L Phosphorus Magnesium Total Bilirubin 0.3 AST 12 L ALT 11 L Alkaline Phosphatase 104 Total Protein 7.0 Albumin 3.3 L Urine Color Urine Appearance Urine pH Ur Specific [place] Urine Protein Urine Glucose (UA) Urine Ketones Urine Blood Urine Nitrite Urine Bilirubin Urine Urobilinogen Ur Leukocyte Esterase Urine WBC (Auto) Urine RBC (Auto) Urine Casts (Auto) U Pathogenic Cast Auto U Epithel Cells (Auto) Urine Crystals (Auto) Urine Bacteria (Auto) Blood Type Antibody Screen 08/29/18 08/29/18 08/30/18 15:47 15:50 06:00 WBC 5.9 RBC 3.65 Hgb 10.9 Hct 32.7 MCV 89.6 MCH 30.0 MCHC 33.5 RDW 13.0 Plt Count 200 D MPV 8.1 Absolute Neuts (auto) 4.3 Neutrophils % 72.9 Lymphocytes % 15.9 Monocytes % 9.2 Eosinophils % 1.7 Basophils % 0.3 Nucleated RBC % 0 PT with INR INR PTT (Actin FS) Sodium Potassium Chloride Carbon Dioxide Anion Gap BUN Creatinine Creat Clearance w eGFR Random Glucose Calcium Phosphorus Magnesium Total Bilirubin AST ALT Alkaline Phosphatase Total Protein Albumin Urine Color Red Urine Appearance Turbid Urine pH 5.0 Ur Specific [place] 1.015 Urine Protein 1+ H Urine Glucose (UA) Negative Urine Ketones Negative Urine Blood 1+ H Urine Nitrite Positive H Urine Bilirubin 2+ H Urine Urobilinogen 0.2 Ur Leukocyte Esterase 3+ H Urine WBC (Auto) 10-30 Urine RBC (Auto) >100 Urine Casts (Auto) None seen U Pathogenic Cast Auto None seen U Epithel Cells (Auto) Rare Urine Crystals (Auto) None seen Urine Bacteria (Auto) Few Blood Type A POSITIVE Antibody Screen Negative 08/30/18 08/30/18 06:00 06:00 WBC RBC Hgb Hct MCV MCH MCHC RDW Plt Count MPV Absolute Neuts (auto) Neutrophils % Lymphocytes % Monocytes % Eosinophils % Basophils % Nucleated RBC % PT with INR 13.10 H INR 1.11 H PTT (Actin FS) 29.9 Sodium 138 Potassium 3.9 Chloride 104 Carbon Dioxide 25 Anion Gap 9 BUN 34 H Creatinine 2.1 H Creat Clearance w eGFR 22.90 Random Glucose 86 Calcium 8.6 Phosphorus 3.8 Magnesium 2.5 H Total Bilirubin 0.2 AST 12 L ALT 11 L Alkaline Phosphatase 92 Total Protein 5.9 L Albumin 2.8 L Urine Color Urine Appearance Urine pH Ur Specific [place] Urine Protein Urine Glucose (UA) Urine Ketones Urine Blood Urine Nitrite Urine Bilirubin Urine Urobilinogen Ur Leukocyte Esterase Urine WBC (Auto) Urine RBC (Auto) Urine Casts (Auto) U Pathogenic Cast Auto U Epithel Cells (Auto) Urine Crystals (Auto) Urine Bacteria (Auto) Blood Type Antibody Screen [id number] US/PELVIC / BLADDER US 08/29/18 [id number] US/KIDNEY / RENAL US Renal ultrasound Urinary bladder ultrasound Clinical information: hematuria Right hydronephrosis is seen which is probably mild to moderate. This finding decreased in comparison to a prior ultrasound study of 11/14/2017. The patient is status post interval placement of a right nephroureteral stent (12/27/2017). There is partial imaging of the right ureteral stent on the current exam. Right kidney appears unremarkable in size measuring 11.4 cm in length. No obvious calculus or mass lesion is noted. The right ureter is obscured due to overlapping bowel gas. No left hydronephrosis is noted. As on the prior study the left kidney appears atrophic measuring 7 cm in length. No obvious mass lesion or calculus is seen. Note is again made of a 3 cm cortical cyst. There is no obvious perirenal fluid collection. Evaluation of the urinary bladder demonstrates no gross calculus or mass lesion. No post void residual volume is noted. Prevoid volume 40 mL. Impression: Right hydronephrosis is noted which is probably mild to moderate. There is partial imaging of a right nephroureteral stent in place. Please see above. No left hydronephrosis is seen. Left renal atrophy. HOSPITAL COURSE: Date of Admission:08/29/18 Date of Discharge: 08/30/18 78 yo f w/ PMH HTN, CHF, GERD, Hypothyroidism, anemia, asthma, AV leak, congenital "hole in heart", L atrophic kidney, R UPJ obstruction s/p stent placement 02/12/16 removal 05/31/15, who comes into the ED c/o hematuria since monday. Admitted for Acute complicated UTI w/ hematuria - Previous Cx 10/09/16 grew VRE ( 40-50k CFUs, likely contaminant) sensitive to Levaquin. s/p levaquin 750 IV in ED. nephro consulted (Tejinder). urology consulted (Dr Pinzon). Ucx, bcx, VRE stool cx pending. renal u/s showing patent stent and improvement in hydronephrosis. pt c/w Levaquin 750 IV q48H based off of pt's CrCl of 24. pt is currently afebrile, hemodynamically stable, Cr stable, H/H stable. Per Urology, plan for stent exchange next week as outpt after infection has cleared. pt will be dcd w/ levaquin 750 PO q48h, 2 more doses: days 08/31/18 and 09/02/18 (last dose) . cx are pending. pt notified that she will be contacted at [phone] if cx are resistant to levaquin and abx need to changed pt stable and ready for dc w/ appropriate f/u Minutes to complete discharge: 38 Discharge Summary Reason For Visit: URINARY TRACT INFECTION Current Active Problems UTI (urinary tract infection) (Acute) Condition: Stable - Instructions Diet, Activity, Other Instructions: you came in with urinary tract infection and blood in your urine. we gave you antibiotics which helped your symptoms and resolved your blood in your urine. We spoke with your urologist Dr. Pinzon and he said you should follow up in the office within 1 week/when your infection has cleared, to have your kidney stent removed Please continue taking antibiotic levaquin 750mg once a day for two more doses. Please take on days 08/31/18 and 09/02/18 (last dose). We will contact you if your urine cultures are growing bacteria resistant to levaquin and then will prescribe you a different antibiotic Please resume your home meds Please follow up with your primary care physician within 1 week Please follow up with paper latcher Shamar Marr within 1 week Please follow up with urologist within 1 week for kidney stent removal If you experieince any more blood in your urine, abdominal pain, fevers, chills , burning on urination, shortness of breath, nausea, vomit, please call 911 or go to the ER Referrals: Momo Alicia MD [Primary Care Provider] - 1 Week Jerry Pinzon MD [Staff Physician] - 1 Week Hay Marr MD [Staff Physician] - 1 Week Disposition: HOME - Home Medications Comprehensive Discharge Medication List: Ambulatory Orders Escitalopram Oxalate [Lexapro -] 40 mg PO HS 12/25/17 Levothyroxine [Synthroid -] 50 mcg PO DAILY 12/25/17 Nebivolol HCl [Bystolic] 20 mg PO HS 12/25/17 Nifedipine [Procardia Xl] 30 mg PO HS 12/25/17 Torsemide 20 mg PO DAILY 12/25/17 Ferrous Sulfate [Iron] 325 mg PO HS 03/01/18 Levofloxacin [Levaquin] 750 mg PO Q48H 2 Days #2 tablet 08/30/18 This patient is new to me today: Yes Date on this admission: 08/30/18 Emergency Visit: Yes ED Registration Date: 08/29/18 Care time: The patient presented to the Emergency Department on the above date and was hospitalized for further evaluation of their emergent condition. Critical Care patient: No - Discharge Referral Referred to [facility].C[facility] No
[2018-08-30 16:01] VITALS: BP 138/66; PULSE 68; TEMP 97.8
--- NOTE | 2018-08-30 16:39 | CONSULT ---
Consult - text type - Consultation Consultation Note: Renal consult for CKD and hematuria This is a 78 year old woman with hx of CKD stage 4, UP junction obstruction with stent placement, hypertension, CHF, GERD who presented with hematuria and found to have UTI. Pt follows with our office as an outpatient. Pt called and reported persistent hematuria x 4 days. No fevers or chills at home but did feel fatigued. She did not have any flank pain. She was asked to come to the ER for further evaluation. s/p IV abx yesterday, feeling better. no CP, SOB, abd pain, N/V/D. Tony to tolerate an oral diet. Pmhx: as above Allergies: NKDA Family Hx: NC Social Hx: NO T/A/D ROS: as per HPI, all other pertinent ros negative Home Medications Medication Instructions Recorded Escitalopram Oxalate [Lexapro -] 40 mg PO HS 12/25/17 Levothyroxine [Synthroid -] 50 mcg PO DAILY 12/25/17 Nebivolol HCl [Bystolic] 20 mg PO HS 12/25/17 Nifedipine [Procardia Xl] 30 mg PO HS 12/25/17 Torsemide 20 mg PO DAILY 12/25/17 Ferrous Sulfate [Iron] 325 mg PO HS 03/01/18 Levofloxacin [Levaquin] 750 mg PO Q48H 2 Days #2 tablet 08/30/18 Vital Signs Temperature 97.8 F 08/30/18 15:57 Pulse Rate 68 08/30/18 15:57 Respiratory Rate 20 08/30/18 15:57 Blood Pressure 138/66 08/30/18 15:57 O2 Sat by Pulse Oximetry (%) 97 08/30/18 09:00 NAD awake and alert neck supple, no JVD RRR, no M/R CTA no LE edema no cva tenderness CBC, BMP 08/30/18 06:00 08/30/18 06:00 Current Medications Escitalopram Oxalate (Lexapro -) 40 mg PO HS [facility] Last Admin: 08/30/18 01:16 Dose: 40 mg Ferrous Sulfate (Feosol -) 325 mg PO HS [facility] Last Admin: 08/30/18 01:16 Dose: 325 mg Levofloxacin (Levaquin 750 Mg Premixed Ivpb -) 750 mg in 150 mls @ 100 mls/hr IVPB Q48H [facility]; Protocol Levothyroxine Sodium (Synthroid -) 50 mcg PO AC[facility] Last Admin: 08/30/18 10:28 Dose: 50 mcg Nebivolol (Bystolic -) 20 mg PO HS [facility] Nifedipine (Procardia Xl -) 30 mg PO HS [facility] 78 year old woman with hx of CKD stage 4, UP junction obstruction with stent placement, hypertension, CHF, GERD who presented with hematuria and found to have UTI. #CKD stage 4 #UPJ obstruction with indwelling stent #Cystitis #Chronic Hydronephrosis #Hypertension Renal function stable Urology evaluation noted continue Levaquin pending cultures will need stent replacement s/p completion of antibiotics Thank you Hay Marr DO
[2018-08-30] MEDS ORDERED: NIFEdipine E.R. 30 MG TABLET (FP) PO SCH (22:00)
--- NOTE | 2018-08-31 14:53 | PN ---
Progress Note (short form) - Note Progress Note: prelim Ucx 08/29/18 growing beta hemolytic strep prelim bcx 08/29/18 growing gram pos cocci in chains contacted pt and informed her of results and the need to come back to hospital for IV abx SID. pt understands and will come as soon as she can get a ride. when pt arrives will consult ID and rpt cx before giving abx
== END 2018-08-30 17:14 | disposition home or self-care (01) ==
LOC: JER 15:27 → UNDOADMOB 18:15 → JERBED 18:15 → INTOOBSV 18:15 → JERBED 18:49 → J7W 22:07
PROVIDERS: ADMIT Internal Medicine; ATTEND Internal Medicine
DX: N30.01 Acute cystitis with hematuria (principal); I12.9 Hypertensive chronic kidney disease with stage 1 through stage 4 chronic kidney disease, or unspecified chronic kidney disease; N18.4 Chronic kidney disease, stage 4 (severe); I11.0 Hypertensive heart disease with heart failure; K21.9 Gastro-esophageal reflux disease without esophagitis; I50.9 Heart failure, unspecified; E03.9 Hypothyroidism, unspecified; Q24.9 Congenital malformation of heart, unspecified; N26.1 Atrophy of kidney (terminal); Z85.828 Personal history of other malignant neoplasm of skin; Z98.61 Coronary angioplasty status; Z85.44 Personal history of malignant neoplasm of other female genital organs; Z88.0 Allergy status to penicillin; N13.39 Other hydronephrosis; Z96.0 Presence of urogenital implants; Z87.442 Personal history of urinary calculi
CPT/HCPCS: 36415; 76775-TC; 76856-TC; 80053; 81003; 83735; 84100; 85025; 85610; 85730; 86850; 86900; 86901; 87040; 87081; 87086; 87186; 93005; 93010; 99285-25; G0378

== ENCOUNTER 2018-08-31 16:26 | Inpatient (IN) | payer BC ==
--- NOTE | 2018-08-31 16:51 | PDOC ---
Rapid Medical Evaluation Medical Evaluation: Allergies Allergy/AdvReac Type Severity Reaction Status Date / Time Penicillins Allergy Intermediate rash Verified 08/31/18 16:38 08/31/18 16:38 I have performed a brief in-person evaluation of this patient. The patient presents with a chief complaint of: asked to return to ER for Blood sepsis / called by Dr Hurley, told to return for admission for IVAbX Pertinent physical exam findings: pale, weak/ tired/ Chronic kidney dysfunction. I have ordered the following: IV/ CBC, CMP, Blood Cx x 2, Lactic acid, UA/ UCx The patient will proceed to the ED for further evaluation. Discharge Disposition - Diagnosis Sepsis - Referrals - Patient Instructions - Post Discharge Activity
--- NOTE | 2018-08-31 16:57 | PDOC ---
History of Present Illness - General Chief Complaint: Revisit, Lab Variance Stated Complaint: PCP SENT/INFECTION Time Seen by Provider: 08/31/18 16:56 - History of Present Illness Initial Comments: 08/31/18 16:56 Ms. 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 Patient was recently admitted 08/29-08/30 w / UTI after presenting for evaluation of hematuria x1 week. Patient was treated with levaquin. Patient contacted today and asked to return by PCP (Dr. Hurley ) as was found to have preliminary urine Cx showing beta hemolytic strep and preliminary blood Cx showing gram positive cocci in chains. Ms. Callejas reports she feels fine at this time and is not having any further urinary symptoms. No complaints at this time. The patient denies chest pain, shortness of breath, headache and dizziness. Denies fever, chills, nausea, vomit, diarrhea and constipation. Denies dysuria, frequency, urgency and hematuria. Urologist: Dr. Pinzon. Power Project Manager: Dr. Marr ID: Dr. Lu Past History - Past Medical History Allergies/Adverse Reactions: Allergies Allergy/AdvReac Type Severity Reaction Status Date / Time Penicillins Allergy Intermediate rash Verified 08/31/18 16:38 Home Medications: Ambulatory Orders Escitalopram Oxalate [Lexapro -] 20 mg PO HS 12/25/17 Levothyroxine [Synthroid -] 50 mcg PO DAILY 12/25/17 Nebivolol HCl [Bystolic] 20 mg PO HS 12/25/17 Nifedipine [Procardia Xl] 30 mg PO HS 12/25/17 Torsemide 20 mg PO DAILY 12/25/17 Ferrous Sulfate [Iron] 325 mg PO HS 03/01/18 Levofloxacin [Levaquin] 750 mg PO Q48H 2 Days #2 tablet 08/30/18 Pantoprazole Sodium [Protonix -] 20 mg PO DAILY 08/31/18 Anemia: Yes Asthma: Yes (childhood) 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)) Cardiac Disorders: Yes (aortic valve"leak"; congenital hole in heart) CVA: No COPD: No CHF: Yes Dementia: No Diabetes: No GI Disorders: Yes (GERD,Hiatal Hernia) Disorders: Yes (RF,stent to rt urethra) HTN: Yes Hypercholesterolemia: No Liver Disease: No Seizures: No Thyroid Disease: Yes (cyst on thyroid) - Surgical History Appendectomy: Yes Cardiac Surgery: (Cardiac Cath many yrs ago) Cholecystectomy: Yes Orthopedic Surgery: No - Immunization History Immunization Up to Date: Yes - Suicide/Smoking/Psychosocial Hx Smoking History: Never smoked Have you smoked in the past 12 months: No Number of Cigarettes Smoked Daily: 0 If you are a former smoker, when did you quit?: 2005 Hx Alcohol Use: No Drug/Substance Use Hx: No Substance Use Type: None Hx Substance Use Treatment: No Review of Systems - Review of Systems Comments:: 08/31/18 17:04 GENERAL/CONSTITUTIONAL: No fever or chills. No weakness. HEAD, EYES, EARS, NOSE AND THROAT: No change in vision. No ear pain or discharge. No sore throat. CARDIOVASCULAR: No chest pain or shortness of breath RESPIRATORY: No cough, wheezing, or hemoptysis. GASTROINTESTINAL: No nausea, vomiting, diarrhea or constipation. GENITOURINARY: +Hematuria as described (now resolved). No dysuria, frequency, or change in urination. MUSCULOSKELETAL: No joint or muscle swelling or pain. No neck or back pain. SKIN: No rash NEUROLOGIC: No headache, vertigo, loss of consciousness, or change in strength/ sensation. ENDOCRINE: No increased thirst. No abnormal weight change HEMATOLOGIC/LYMPHATIC: No anemia, easy bleeding, or history of blood clots. ALLERGIC/IMMUNOLOGIC: No hives or skin allergy. *Physical Exam - Vital Signs Last Vital Signs Temp Pulse Resp BP Pulse Ox 98.2 F 61 17 114/55 L 100 08/31/18 16:39 08/31/18 16:39 08/31/18 16:39 08/31/18 16:39 08/31/18 16:39 - Physical Exam Comments: 08/31/18 17:04 GENERAL: Awake, alert, and fully oriented, in no acute distress HEAD: No signs of trauma, normocephalic, atraumatic EYES: PERRLA, EOMI, sclera anicteric, conjunctiva clear ENT: Auricles normal inspection, hearing grossly normal, nares patent, oropharynx clear without exudates. Moist mucosa NECK: Normal ROM, supple, no lymphadenopathy, JVD, or masses LUNGS: No distress, speaks full sentences, clear to auscultation bilaterally HEART: Regular rate and rhythm, normal S1 and S2, no murmurs, rubs or gallops, peripheral pulses normal and equal bilaterally. ABDOMEN: Soft, nontender, normoactive bowel sounds. No guarding, no rebound. No masses EXTREMITIES: Normal inspection, Normal range of motion, no edema. No clubbing or cyanosis. NEUROLOGICAL: Cranial nerves II through XII grossly intact. Normal speech, normal gait, no focal sensorimotor deficits SKIN: Warm, Dry, normal turgor, no rashes or lesions noted. ED Treatment Course - LABORATORY CBC & Chemistry Diagram: 08/31/18 17:27 08/31/18 17:27 Medical Decision Making - Medical Decision Making 08/31/18 18:59 Ms. Callejas is a 78 yo female w/ pmh as described who presents for evaluation of positive cultures. Workup as below positive for flagrant UTI. ID consulted for guidance of ABX. Patient admitted for further care. 08/31/18 19:51 ID consulted who discussed patient with inpatient team and will input ABX orders. Laboratory Results - last 24 hr 08/31/18 08/31/18 08/31/18 17:27 17:27 17:27 WBC 8.1 RBC 3.99 Hgb 11.9 Hct 36.5 MCV 91.6 MCH 29.9 MCHC 32.6 RDW 13.3 Plt Count 233 MPV 8.1 Absolute Neuts (auto) 6.2 Neutrophils % 76.3 Lymphocytes % 13.2 Monocytes % 8.2 Eosinophils % 1.9 Basophils % 0.4 Nucleated RBC % 0 PT with INR 13.30 H INR 1.13 H Sodium 139 Potassium 4.2 Chloride 103 Carbon Dioxide 26 Anion Gap 10 BUN 29 H Creatinine 2.2 H Creat Clearance w eGFR 21.70 Random Glucose 90 Calcium 8.7 Total Bilirubin 0.2 AST 14 L ALT 12 L Alkaline Phosphatase 100 Total Protein 7.0 Albumin 3.4 Urine Color Urine Appearance Urine pH Ur Specific [place] Urine Protein Urine Glucose (UA) Urine Ketones Urine Blood Urine Nitrite Urine Bilirubin Urine Urobilinogen Ur Leukocyte Esterase Urine WBC (Auto) Urine RBC (Auto) Urine Casts (Auto) U Epithel Cells (Auto) Urine Bacteria (Auto) 08/31/18 17:44 WBC RBC Hgb Hct MCV MCH MCHC RDW Plt Count MPV Absolute Neuts (auto) Neutrophils % Lymphocytes % Monocytes % Eosinophils % Basophils % Nucleated RBC % PT with INR INR Sodium Potassium Chloride Carbon Dioxide Anion Gap BUN Creatinine Creat Clearance w eGFR Random Glucose Calcium Total Bilirubin AST ALT Alkaline Phosphatase Total Protein Albumin Urine Color [place] Urine Appearance Turbid Urine pH 6.0 Ur Specific [place] 1.010 Urine Protein 3+ H Urine Glucose (UA) Negative Urine Ketones Negative Urine Blood 3+ H Urine Nitrite Negative Urine Bilirubin Negative Urine Urobilinogen 1.0 Ur Leukocyte Esterase 3+ H Urine WBC (Auto) 282 Urine RBC (Auto) 943.5 Urine Casts (Auto) 6 U Epithel Cells (Auto) 9.1 Urine Bacteria (Auto) 75.4 *DC/Admit/Observation/Transfer Diagnosis at time of Disposition: Sepsis Qualifiers: Sepsis type: sepsis due to unspecified organism Qualified Code(s): A41.9 - Sepsis, unspecified organism - Discharge Dispostion Decision to Admit order: Yes - Referrals - Patient Instructions - Post Discharge Activity
--- NOTE | 2018-08-31 17:38 | PDOC ---
Attending Attestation - Resident Resident Name: Reuben Orlando - ED Attending Attestation I have performed the following: I have examined & evaluated the patient, The case was reviewed & discussed with the resident, I agree w/resident's findings & plan, Exceptions are as noted - HPI HPI: 08/31/18 17:36 78 F with h/o HTN, CHF, GERD, Congenital R UPJO, presenting to ED for positive blood and urine cultures. Pt was recently admitted for UTI and tx'ed with levaquin. However, today, pt's blood Cx showed gram + cocci and UCx showed beta hemolytic strep. Pt states that she feels much better after taking the abx. Denies any recent F/C. Denies dysuria/hematuria. - Physicial Exam PE: 08/31/18 17:38 "GENERAL: Awake, alert, and fully oriented, in no acute distress. HEAD: No signs of trauma EYES: PERRLA, EOMI, sclera anicteric, conjunctiva clear ENT: Auricles normal inspection, hearing grossly normal, nares patent, oropharynx clear without exudates. Moist mucosa NECK: Nontender, no stepoffs, Normal ROM, supple, no lymphadenopathy, JVD, or masses LUNGS: Breath sounds equal, clear to auscultation bilaterally. No wheezes, and no crackles HEART: Regular rate and rhythm, normal S1 and S2, no murmurs, rubs or gallops ABDOMEN: Soft, nontender, normoactive bowel sounds. No guarding, no rebound. No masses EXTREMITIES: Normal range of motion, no edema. No clubbing or cyanosis. No cords, erythema, or tenderness NEUROLOGICAL: Cranial nerves II through XII intact. 5/5 strength and sensation in all extremities, Normal speech, normal gait, normal cerebellar function SKIN: Warm, Dry, normal turgor, no rashes or lesions noted. - Medical Decision Making 08/31/18 17:38 78 F with recently diagnosed and tx'ed UTI, presenting to ED for positive blood and urine cultures. Pt afebrile, HD stable, with no complaints currently. - Labs - Repeat cultures - ID consult Dr. Lu
[2018-08-31 17:40] LABS: BASO % 0.4 % (0-2.0); EOS % 1.9 % (0-4.5); HEMATOCRIT 36.5 % (32.4-45.2); HEMOGLOBIN 11.9 GM/dL (10.7-15.3); LYMPH % 13.2 % (8-40); MCH 29.9 pg (25.7-33.7); MCHC 32.6 g/dl (32.0-36.0); MEAN CELL VOLUME 91.6 fl (80-96); MEAN PLT VOLUME 8.1 fl (7.5-11.1); MONO % 8.2 % (3.8-10.2); NEUT % 76.3 % (42.8-82.8); PLATELET COUNT 233 K/MM3 (134-434); RBC 3.99 M/mm3 (3.60-5.2); RDW 13.3 % (11.6-15.6); WHITE BLOOD COUNT 8.1 K/mm3 (4.0-10.0)
[2018-08-31 17:53] LABS: INR 1.13 (0.83-1.09); PROTHROMBIN TIME (PATIENT) 13.3 SEC (9.7-13.0)
[2018-08-31 18:01] LABS: EPI CELLS 9.1 /HPF (0-5); URINE APPEARANCE TURBID; URINE BILIRUBIN NEGATIVE (NEGATIVE); URINE CASTS 6 /hpf (0-8); URINE COLOR ORANGE; URINE GLUCOSE (UA) NEGATIVE (NEGATIVE); URINE KETONE NEGATIVE (NEGATIVE); URINE LEUK ESTERASE 3+ (NEGATIVE); URINE NITRITE NEGATIVE (NEGATIVE); URINE PROTEIN 3+ (NEGATIVE); URINE WBC 282 /hpf (0-5)
[2018-08-31 18:06] LABS: ALBUMIN 3.4 g/dl (3.4-5.0); ALK PHOS 100 U/L (45-117); ANION GAP 10 MMOL/L (8-16); BILIRUBIN,TOTAL 0.2 mg/dL (0.2-1); BLOOD UREA NITROGEN 29 mg/dL (7-18); CALCIUM 8.7 mg/dL (8.5-10.1); CHLORIDE 103 mmol/L (98-107); CO2 26 mmol/L (21-32); CREATININE 2.2 mg/dL (0.55-1.3); GLUCOSE,RANDOM 90 mg/dL (74-106); POTASSIUM 4.2 mmol/L (3.5-5.1); SGOT/AST 14 U/L (15-37); SGPT/ALT 12 U/L (13-61); SODIUM 139 mmol/L (136-145)
[2018-08-31 18:47] LABS: URINE RBC 943.5 /hpf (0-4)
[2018-08-31 18:48] LABS: URINE BACTERIA 75.4 /hpf (NEGATIVE)
[2018-08-31] MEDS ORDERED: VANCOMYCIN 1 GM in D5W (PRE-DOCKED) 1,000 MG/250 ML IVPB ONE (19:50)
--- NOTE | 2018-08-31 19:51 | HP ---
CHIEF COMPLAINT: +blood cx PCP: Dr. Alicia HISTORY OF PRESENT ILLNESS: 78 y/o F with PMH HTN, diastolic CHF, GERD, hypothyroidism, anemia, asthma, AV leak, "hole in heart," L atrophic kidney, R UPJ obstruction s/p stent placement , who presents to the ED after she was called in with +blood cx. Pt was d/c home 08/30/18 after being tx for likely complicated UTI a/w hematuria. At the time , she was tx with levaquin 750mg q48h for 2 days while she was in the hospital, and was sent home to complete two additional doses of levaquin 750mg q48hr on d/ c (of which she took the first dose today). On this past admission, she also underwent a renal sono which revealed mild to moderate R hydro, and she was to have her R ureteral stent exchanged by Dr. Pinzon after her infection cleared. Today, pt states that her hematuria has resolved. Only endorses flank tenderness , which is positional, but not on palpation. Without fever, chills, SOB, chest pain or pressure, or changes in bowel function. No dysuria. ER course was notable for: (1) (2) (3) Recent Travel: denies PAST MEDICAL HISTORY: as above PAST SURGICAL HISTORY: R ureteral stent placed for stricture lap dahlia appendectomy R breast lumpectomy (benign) Social History: Smoking: used to smoke 1 ppd for many years. quit 2005 Alcohol: socially Drugs: denies Family History: sister- breast CA, three siblings with kidney problems. one received transplant Allergies Penicillins Allergy (Intermediate, Verified 08/31/18 16:38) rash HOME MEDICATIONS: Home Medications Medication Instructions Recorded Escitalopram Oxalate [Lexapro -] 20 mg PO HS 12/25/17 Levothyroxine [Synthroid -] 50 mcg PO DAILY 12/25/17 Nebivolol HCl [Bystolic] 20 mg PO HS 12/25/17 Nifedipine [Procardia Xl] 30 mg PO HS 12/25/17 Torsemide 20 mg PO DAILY 12/25/17 Ferrous Sulfate [Iron] 325 mg PO HS 03/01/18 was d/c on last admission Pantoprazole Sodium [Protonix -] 20 mg PO DAILY 08/31/18 REVIEW OF SYSTEMS CONSTITUTIONAL: Absent: fever, chills, diaphoresis, generalized weakness, malaise, loss of appetite, weight change HEENT: Absent: rhinorrhea, nasal congestion, throat pain, throat swelling, difficulty swallowing, mouth swelling, ear pain, eye pain, visual changes CARDIOVASCULAR: Absent: chest pain, syncope, palpitations, irregular heart rate, lightheadedness , peripheral edema RESPIRATORY: Absent: cough, shortness of breath, dyspnea with exertion, orthopnea, wheezing, stridor, hemoptysis GASTROINTESTINAL: Absent: abdominal pain, abdominal distension, nausea, vomiting, diarrhea, constipation, melena, hematochezia GENITOURINARY: +flank pain Absent: dysuria, frequency, urgency, hesitancy, hematuria, genital pain MUSCULOSKELETAL: Absent: myalgia, arthralgia, joint swelling, back pain, neck pain SKIN: Absent: rash, itching, pallor HEMATOLOGIC/IMMUNOLOGIC: Absent: easy bleeding, easy bruising, lymphadenopathy, frequent infections ENDOCRINE: Absent: unexplained weight gain, unexplained weight loss, heat intolerance, cold intolerance NEUROLOGIC: Absent: headache, focal weakness or paresthesias, dizziness, unsteady gait, seizure, mental status changes, bladder or bowel incontinence PSYCHIATRIC: Absent: anxiety, depression, suicidal or homicidal ideation, hallucinations. PHYSICAL EXAMINATION Vital Signs - 24 hr 08/31/18 16:39 Temperature 98.2 F Pulse Rate 61 Respiratory 17 Rate Blood Pressure 114/55 L O2 Sat by Pulse 100 Oximetry (%) GENERAL: Pleasant. Awake, alert, and fully oriented, in no acute distress. HEAD: Normal with no signs of trauma. EYES: Pupils equal, round and reactive to light, extraocular movements intact, sclera anicteric, conjunctiva clear. EARS, NOSE, THROAT: Ears normal, nares patent, oropharynx clear without exudates. Moist mucous membranes. NECK: Normal range of motion, supple LUNGS: Breath sounds equal, clear to auscultation bilaterally. No wheezes, and no crackles. No accessory muscle use. HEART: Regular rate and rhythm, normal S1 and S2 without murmur, rub or gallop. ABDOMEN: Soft, nontender, not distended, normoactive bowel sounds, no guarding, no rebound, no masses. No suprapubic tenderness. MUSCULOSKELETAL: No CVA tenderness. LOWER EXTREMITIES: 2+ pt pulses, warm, well-perfused. No calf tenderness. No peripheral edema. NEUROLOGICAL: Cranial nerves II-XII intact. Normal speech. Normal gait. PSYCHIATRIC: Cooperative. Good eye contact. Appropriate mood and affect. SKIN: Warm, dry Laboratory Results 08/31/18 08/31/18 08/31/18 17:27 17:27 17:44 WBC 8.1 Hgb 11.9 Hct 36.5 Plt Count 233 Sodium 139 Potassium 4.2 Chloride 103 Carbon Dioxide 26 BUN 29 H Creatinine 2.2 H Urine Color Gilmer Urine Appearance Turbid Ur Specific Isabella 1.010 Urine Protein 3+ H Urine Glucose (UA) Negative Urine Ketones Negative Urine Blood 3+ H Ur Leukocyte Esterase 3+ H Urine WBC (Auto) 282 Micro 08/29/18: Ucx: +b hemolytic strep 08/29/18: Blood cx: gram + cocci in chains ASSESSMENT/PLAN: 78 y/o F with PMH HTN, CHF, GERD, hypothyroidism, anemia, asthma, AV leak, " hole in heart," L atrophic kidney, R UPJ obstruction s/p stent placement, who presents to the ED after she was called in with +blood cx. #UTI w/gram + bacteremia -possible blood cx is + from ucx for +b hemolytic strep, c+s pending -currently afebrile, without leukocytosis. with resolved hematuria since last admission -PCN allergic -will give vanco 1g IVPB qd (Cr clearance:21) d/w ID -f/u repeat blood, ucx (done in ED) -ID consult: Dr. Lu -R stent exchange by Dr. Pinzon outpt once infection has cleared -iso precautions: hx VRE #CKD -at baseline renal fnc, improved since past admission -was evaluated by nephro on previous visit #hx diastolic CHF -without hx recent ECHO in system however had ECHO [address] Cordova -hold torsemide for now in lieu of IVF #Hypothyroidism -c/w synthroid #HTN-controlled -c/w bystolic, procardia #F/E/N no IVF needed at this time continue to follow lytes na controlled diet #PPX DVT: SCD's. with recently resolved hematuria GI: on protonix #Dispo admit to med-surg Visit type - Emergency Visit Emergency Visit: Yes ED Registration Date: 08/31/18 Care time: The patient presented to the Emergency Department on the above date and was hospitalized for further evaluation of their emergent condition. - New Patient This patient is new to me today: Yes Date on this admission: 09/01/18 - Critical Care Critical Care patient: No
--- NOTE | 2018-08-31 20:36 | PN ---
Teaching Attending Note Name of Resident: Ana Winkler ATTENDING PHYSICIAN STATEMENT I saw and evaluated the patient. I reviewed the resident's note and discussed the case with the resident. I agree with the resident's findings and plan as documented. SUBJECTIVE: This is a 78 year old woman with a history of chronic right UPJ obstruction, right ureteral stent, HTN, chronic diastolic heart failure, stage 4 CKD, GERD, hypothyroidism, anemia who was admitted 08/29-08/30 with hematuria and UTI. She was treated with Levaquin and discharged yesterday. She was to complete the course of Levaquin on 09/02 and have the stent replaced once the infection cleared. Today, one of the blood cultures done on 08/29 grew gram pos cocci in chains. Urine culture from 08/29 is growing beta hemolytic Strep. Previous urine cultures grew E. coli (2016), VRE (2017). She has bilateral flank discomfort but otherwise has no complaints. She denies fever, chills, hematuria, dysuria. OBJECTIVE: Vital Signs Period Temp Pulse Resp BP Sys/Rashid Pulse Ox Last 24 Hr 98.1 F-98.2 F 61-69 17-18 114-120/55-67 96-100 HEART: S1S2, RRR LUNGS: Clear ABDOMEN: Soft, non-tender, non-distended, normal BS, no CVA tenderness EXTREMITIES: No edema Laboratory Tests 08/31/18 08/31/18 08/31/18 17:27 17:27 17:27 WBC 8.1 RBC 3.99 Hgb 11.9 Hct 36.5 MCV 91.6 MCH 29.9 MCHC 32.6 RDW 13.3 Plt Count 233 MPV 8.1 Absolute Neuts (auto) 6.2 Neutrophils % 76.3 Lymphocytes % 13.2 Monocytes % 8.2 Eosinophils % 1.9 Basophils % 0.4 Nucleated RBC % 0 PT with INR 13.30 H INR 1.13 H Sodium 139 Potassium 4.2 Chloride 103 Carbon Dioxide 26 Anion Gap 10 BUN 29 H Creatinine 2.2 H Creat Clearance w eGFR 21.70 Random Glucose 90 Calcium 8.7 Total Bilirubin 0.2 AST 14 L ALT 12 L Alkaline Phosphatase 100 Total Protein 7.0 Albumin 3.4 Urine Color Urine Appearance Urine pH Ur Specific Nichols Urine Protein Urine Glucose (UA) Urine Ketones Urine Blood Urine Nitrite Urine Bilirubin Urine Urobilinogen Ur Leukocyte Esterase Urine WBC (Auto) Urine RBC (Auto) Urine Casts (Auto) U Epithel Cells (Auto) Urine Bacteria (Auto) 08/31/18 17:44 WBC RBC Hgb Hct MCV MCH MCHC RDW Plt Count MPV Absolute Neuts (auto) Neutrophils % Lymphocytes % Monocytes % Eosinophils % Basophils % Nucleated RBC % PT with INR INR Sodium Potassium Chloride Carbon Dioxide Anion Gap BUN Creatinine Creat Clearance w eGFR Random Glucose Calcium Total Bilirubin AST ALT Alkaline Phosphatase Total Protein Albumin Urine Color Anthony Urine Appearance Turbid Urine pH 6.0 Ur Specific Nichols 1.010 Urine Protein 3+ H Urine Glucose (UA) Negative Urine Ketones Negative Urine Blood 3+ H Urine Nitrite Negative Urine Bilirubin Negative Urine Urobilinogen 1.0 Ur Leukocyte Esterase 3+ H Urine WBC (Auto) 282 Urine RBC (Auto) 943.5 Urine Casts (Auto) 6 U Epithel Cells (Auto) 9.1 Urine Bacteria (Auto) 75.4 Home Medications Medication Instructions Recorded Escitalopram Oxalate [Lexapro -] 20 mg PO HS 12/25/17 Levothyroxine [Synthroid -] 50 mcg PO DAILY 12/25/17 Nebivolol HCl [Bystolic] 20 mg PO HS 12/25/17 Nifedipine [Procardia Xl] 30 mg PO HS 12/25/17 Torsemide 20 mg PO DAILY 12/25/17 Ferrous Sulfate [Iron] 325 mg PO HS 03/01/18 Levofloxacin [Levaquin] 750 mg PO Q48H 2 Days #2 tablet 08/30/18 Pantoprazole Sodium [Protonix -] 20 mg PO DAILY 08/31/18 ASSESSMENT AND PLAN: This is a 78 year old woman with a history of chronic right UPJ obstruction, right ureteral stent, HTN, chronic diastolic heart failure, stage 4 CKD, GERD, hypothyroidism, anemia, who is currently being treated for UTI and was asked to return to the ED because of blood culture growing gram pos cocci in chains. 1. Gram positive bacteremia secondary to complicated UTI - Afebrile, WBC has been normal - UA shows 3+ leukocyte esterase and 282 WBC (10-30 on 08/29) despite being treated with Levaquin - Urine culture 08/29 growing beta hemolytic Strep - Urine and blood cultures repeated - Start Vancomycin - ID consult - Follow up identification and sensitivities of urine/blood cultures from 08/29 2. Stage 4 CKD - Creatinine stable 3. Chronic diastolic heart failure - Stable 4. HTN - Continue Bystolic, Procardia XL 5. Hypothyroidism - Continue Synthroid 6. GERD - Continue Protonix 7. Anemia secondary to CKD - Continue ferrous sulfate
[2018-08-31] MEDS: ESCITALOPRAM OXALATE 20 MG TABLET (FP) PO SCH (22:52)
[2018-09-01 01:36] VITALS: BMI 32.6
[2018-09-01] MEDS: LEVOTHYROXINE NA 50 MCG TABLET (FP) PO SCH (06:11)
[2018-09-01 07:22] LABS: BASO % 0.2 % (0-2.0); EOS % 2.2 % (0-4.5); HEMATOCRIT 35.1 % (32.4-45.2); HEMOGLOBIN 11.5 GM/dL (10.7-15.3); LYMPH % 22.5 % (8-40); MCH 30.1 pg (25.7-33.7); MCHC 32.9 g/dl (32.0-36.0); MEAN CELL VOLUME 91.4 fl (80-96); MEAN PLT VOLUME 8.4 fl (7.5-11.1); MONO % 7.1 % (3.8-10.2); PLATELET COUNT 232 K/MM3 (134-434); RBC 3.84 M/mm3 (3.60-5.2); RDW 13.4 % (11.6-15.6)
[2018-09-01 08:01] LABS: ANION GAP 8 MMOL/L (8-16); BLOOD UREA NITROGEN 31 mg/dL (7-18); CHLORIDE 102 mmol/L (98-107); CO2 29 mmol/L (21-32); CREATININE 2.4 mg/dL (0.55-1.3); GLUCOSE,RANDOM 81 mg/dL (74-106); MAGNESIUM 2.6 mg/dL (1.8-2.4); PHOSPHOROUS 4.8 mg/dL (2.5-4.9); POTASSIUM 4.4 mmol/L (3.5-5.1); SODIUM 139 mmol/L (136-145)
[2018-09-01] MEDS ORDERED: VANCOMYCIN 1,000 MG in DEXTROSE 5%-WATER - 250 ML IVPB ONE (08:45)
[2018-09-01] MEDS ORDERED: VANCOMYCIN 1 GM PREMIX - 1 GM/200 ML BAG IVPB ONE (08:45)
--- NOTE | 2018-09-01 08:45 | PN ---
Progress Note (short form) - Note Progress Note: asymptomatic. denies CP, SOB< fever, chills, N/V/C/D, hematuria, dysuria Current Medications Generic Name Dose Route Start Last Admin Trade Name Stephanie PRN Reason Stop Dose Admin Escitalopram Oxalate 20 mg 08/31/18 22:00 08/31/18 22:52 Lexapro - PO 20 mg HS AUGUST Administration Ferrous Sulfate 325 mg 09/01/18 08:00 Feosol - PO DAILY@0800 AUGUST Vancomycin HCl 1 gm in 200 mls @ 133.333 mls/hr 09/01/18 08:45 Vancomycin 1 Gm Premix - IVPB 09/01/18 10:14 ONCE ONE Protocol Levothyroxine Sodium 50 mcg 09/01/18 07:00 09/01/18 06:11 Synthroid - PO 50 mcg DAILY@0700 AUGUST Administration Nebivolol 20 mg 09/01/18 22:00 Bystolic - PO HS AUGUST Nifedipine 30 mg 09/01/18 22:00 Procardia Xl - PO HS AUGUST Pantoprazole Sodium 20 mg 09/01/18 10:00 Protonix - PO DAILY AUGUST Torsemide 20 mg 09/01/18 10:00 Demadex - PO DAILY [facility] Last Vital Signs Temp Pulse Resp BP Pulse Ox 98.4 F 77 20 121/66 96 09/01/18 06:00 09/01/18 06:00 09/01/18 06:00 09/01/18 06:00 09/01/18 05:00 General NAD CV S1 S2 RRR no murmur/rub/gallop Lungs CTA B/L no wheezing/rales/rhonchi Abdomen soft NT/ND no suprapubic pain Extremities no pedal edema CBCD WBC 7.0 K/mm3 (4.0-10.0) 09/01/18 07:00 RBC 3.84 M/mm3 (3.60-5.2) 09/01/18 07:00 Hgb 11.5 GM/dL (10.7-15.3) 09/01/18 07:00 Hct 35.1 % (32.4-45.2) 09/01/18 07:00 MCV 91.4 fl (80-96) 09/01/18 07:00 MCHC 32.9 g/dl (32.0-36.0) 09/01/18 07:00 RDW 13.4 % (11.6-15.6) 09/01/18 07:00 Plt Count 232 K/MM3 (134-434) 09/01/18 07:00 MPV 8.4 fl (7.5-11.1) 09/01/18 07:00 CMP Sodium 139 mmol/L (136-145) 09/01/18 07:00 Potassium 4.4 mmol/L (3.5-5.1) 09/01/18 07:00 Chloride 102 mmol/L (98-107) 09/01/18 07:00 Carbon Dioxide 29 mmol/L (21-32) 09/01/18 07:00 Anion Gap 8 MMOL/L (8-16) 09/01/18 07:00 BUN 31 mg/dL (7-18) H 09/01/18 07:00 Creatinine 2.4 mg/dL (0.55-1.3) H 09/01/18 07:00 Creat Clearance w eGFR 19.63 (>60) 09/01/18 07:00 Calcium 9.0 mg/dL (8.5-10.1) 09/01/18 07:00 Total Bilirubin 0.2 mg/dL (0.2-1) 08/31/18 17:27 AST 14 U/L (15-37) L 08/31/18 17:27 ALT 12 U/L (13-61) L 08/31/18 17:27 Alkaline Phosphatase 100 U/L (45-117) 08/31/18 17:27 Total Protein 7.0 g/dl (6.4-8.2) 08/31/18 17:27 Albumin 3.4 g/dl (3.4-5.0) 08/31/18 17:27 ASSESSMENT AND PLAN: 78yo F with PMH HTN, R UPJ obstruction s/p stent placement 02/12/16 removal , L atrophic kidney, anemia, asthma, AV leak, 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 pt was called back to the hospital due to +BCx 1. Bacteremia- +GPC in chains, high suspicion will be beta hemolytic strep which is what Ucx grew. started on vanco day2. repeat BCX sent on presentation. will await repeat cx. ID consulted 2. UPJ obstruction- s/p R stent placement. plan for replacement after infection clears by urology 3. CKD- at baseline 4. Hypothyroid- cont LT4 5. HTN- controlled. resume home medications 6. DVT ppx- hep sq Visit type - Emergency Visit Emergency Visit: Yes ED Registration Date: 08/31/18 Care time: The patient presented to the Emergency Department on the above date and was hospitalized for further evaluation of their emergent condition. - New Patient This patient is new to me today: Yes Date on this admission: 09/01/18 - Critical Care Critical Care patient: No - Discharge Referral Referred to [facility] Med P.C.: No
[2018-09-01] MEDS ORDERED: TORSEMIDE 20 MG TABLET (FP) PO SCH (10:00)
[2018-09-01] MEDS: TORSEMIDE 20 MG TABLET (FP) PO SCH (10:53)
[2018-09-01] MEDS: FERROUS SO4 325 MG TABLET (FP) PO SCH (10:53)
[2018-09-01] MEDS: PANTOPRAZOLE 20 MG TABLET (FP) PO SCH (10:53)
--- NOTE | 2018-09-01 12:25 | PN ---
Progress Note (short form) - Note Progress Note: ID CONSULT DICTATED RECURRENT UTI R/O SEPSIS SECONDARY TO UTI CHRONIC R HN S/P URETERAL STENT AZOTEMIA PCN ALLERGY REPEAT BC OBTAINED PENDING C/S EMPIRIC VANCOMYCIN ADJUSTED FOR RENAL FAILURE
--- NOTE | 2018-09-01 13:23 | CONS ---
DATE OF CONSULTATION: DATE OF DICTATION: 09/01/2018 The patient is a 78-year-old female with a history of right ureteral stricture, recurrent urinary tract infections, evaluated for possible sepsis, secondary to UTI. She was recently hospitalized at [facility] from August 29 to August 30 after presenting with gross hematuria and urinary tract infection. She was found to have a positive urine culture for group B strep. She was discharged home on Levaquin. Patient was called back to the hospital after the microbiology lab reported positive blood cultures for strep species. At the present time she is awake and alert. She has no focal complaint. She reports gross hematuria has resolved. She denies any dysuria. She does have occasional right-sided pressure. She has a ureteral stent in place. PAST MEDICAL HISTORY: Positive for chronic right ureteropelvic junction obstruction with indwelling ureteral stent. The stent has been in place for several months and is scheduled to be changed in December 2018. Past medical history also includes recurrent urinary tract infections, squamous cell carcinoma of the vulva, hypertension, congestive heart failure, gastroesophageal reflux. A urine culture in 2017 was positive for VRE. PAST SURGICAL HISTORY: She is status post cholecystectomy and appendectomy. ALLERGIES: PENICILLIN. Patient is unaware of the nature of the PENICILLIN ALLERGY. She reports it happened in childhood. She has tolerated cephalosporins in the past. MEDICATIONS: Include: 1. Lexapro. 2. Synthroid. 3. Bystolic. 4. Procardia. 5. Levaquin. 6. Protonix. SOCIAL HISTORY: Former smoker. Lives at home. SYSTEMS REVIEW: Neurologic: No loss of consciousness, seizure activity, or focal weakness. Cardiac: Negative chest pain or palpitations. Positive aortic valve disease and "hole in the heart." Respiratory: Negative cough or sputum production. Gastrointestinal: Negative vomiting or diarrhea. Genitourinary: As per HPI. LABORATORY DATA: White count 7.0, hematocrit 35.1, platelet count 232, creatinine 2.4. Urinalysis 282 white cells. Blood cultures showing gram-positive coccyx in chains in 1 anaerobic bottle from August 29. Urine culture grew B strep. Renal sonogram shows right hydronephrosis, right ureteral stent in place, left renal atrophy. PHYSICAL EXAMINATION: General: On physical examination, she is awake and alert, supine in bed in no acute distress, not acutely toxic-appearing. Vitals: Temperature 98.4, blood pressure 121/66, pulse 77 regular, respirations 20 per minute. HEENT: Sclera anicteric. Heart: Sounds S1, S2. No murmur. Lungs: Clear bilaterally, no rhonchi, rales or wheezing. Abdomen: Soft, no tenderness elicited. No suprapubic or flank tenderness. Extremities: Negative for edema. IMPRESSION: 1. Recurrent urinary tract infection. 2. Rule out sepsis, secondary to urinary tract infection. 3. Chronic right ureteral obstruction, status post stent. 4. PENICILLIN ALLERGY. 5. Azotemia. Await identification of blood . Repeat blood cultures have been obtained. Pending cultures, empiric antibiotic coverage with vancomycin adjusted for renal insufficiency. Will follow. Thank you for the kind referral. GABE MARTINEZ M.D. [id number]
[2018-09-01] MEDS: HEPARIN NA (PORCINE) 5,000 UNITS/ML 1ML VIAL SQ SCH ×2 (15:37→21:58)
[2018-09-01] MEDS ORDERED: HEPARIN NA (PORCINE) 5,000 UNITS/ML 1ML VIAL SQ SCH (20:15)
[2018-09-01] MEDS: ESCITALOPRAM OXALATE 20 MG TABLET (FP) PO SCH (21:58)
[2018-09-01] MEDS ORDERED: NIFEdipine E.R. 30 MG TABLET (FP) PO SCH (22:00)
[2018-09-01] MEDS ORDERED: NEBIVOLOL 10 MG TABLET (FP) PO SCH (22:00)
[2018-09-02] MEDS: HEPARIN NA (PORCINE) 5,000 UNITS/ML 1ML VIAL SQ SCH ×2 (06:15→14:45)
[2018-09-02] MEDS: LEVOTHYROXINE NA 50 MCG TABLET (FP) PO SCH (06:15)
--- NOTE | 2018-09-02 07:51 | PN ---
Physical Exam: SUBJECTIVE: Patient seen and examined isak bedside. no acute events overnight. asymptomatic. denies CP, SOB< fever, chills, N/V/C/D, hematuria, dysuria OBJECTIVE: Vital Signs Period Temp Pulse Resp BP Sys/Rashid Pulse Ox Last 24 Hr 97.7 F-98.3 F 64-97 18-20 116-142/56-73 98-98 GENERAL: Pleasant. Awake, alert, and fully oriented, in no acute distress. HEAD: Normal with no signs of trauma. EYES: Pupils equal, round and reactive to light, extraocular movements intact, sclera anicteric, conjunctiva clear. EARS, NOSE, THROAT: nares patent, oropharynx clear without exudates. Moist mucous membranes. NECK: Normal range of motion, supple LUNGS: CTAB HEART: Regular rate and rhythm, normal S1 and S2 without murmur, rub or gallop. ABDOMEN: Soft, nontender, not distended, normoactive bowel sounds, no guarding, no rebound, no masses. No suprapubic tenderness. MUSCULOSKELETAL: No CVA tenderness. LOWER EXTREMITIES: 2+ pt pulses, warm, well-perfused. No calf tenderness. No peripheral edema. NEUROLOGICAL: Cranial nerves II-XII intact. Normal speech. Normal gait. PSYCHIATRIC: Cooperative. Good eye contact. Appropriate mood and affect. SKIN: Warm, dry Laboratory Results - last 24 hr 09/01/18 07:00 Sodium 139 Potassium 4.4 Chloride 102 Carbon Dioxide 29 Anion Gap 8 BUN 31 H Creatinine 2.4 H Creat Clearance w eGFR 19.63 Random Glucose 81 Calcium 9.0 Phosphorus 4.8 Magnesium 2.6 H Active Medications Generic Name Dose Route Start Last Admin Trade Name Markq PRN Reason Stop Dose Admin Escitalopram Oxalate 20 mg 08/31/18 22:00 09/01/18 21:58 Lexapro - PO 20 mg HS AUGUST Administration Ferrous Sulfate 325 mg 09/01/18 08:00 09/01/18 10:53 Feosol - PO 325 mg DAILY@0800 [facility] Administration Heparin Sodium (Porcine) 5,000 unit 09/01/18 14:00 09/02/18 06:15 Heparin - SQ 5,000 unit TID AGUUST Administration Levothyroxine Sodium 50 mcg 09/01/18 07:00 09/02/18 06:15 Synthroid - PO 50 mcg DAILY@0700 AUGUST Administration Nebivolol 20 mg 09/01/18 22:00 09/01/18 21:57 Bystolic - PO 20 mg HS AUGUST Administration Nifedipine 30 mg 09/01/18 22:00 09/01/18 21:58 Procardia Xl - PO 30 mg HS AUGUST Administration Pantoprazole Sodium 20 mg 09/01/18 10:00 09/01/18 10:53 Protonix - PO 20 mg DAILY AUGUST Administration Torsemide 20 mg 09/01/18 10:00 09/01/18 10:53 Demadex - PO 20 mg DAILY AUGUST Administration Micro 08/29/18: Ucx: +b hemolytic strep 08/29/18: Blood cx: gram + cocci in chains 1. Bacteremia- +GPC in chains, high suspicion will be beta hemolytic strep which is what Ucx grew. started on vanco day2. repeat BCX sent on presentation. will await repeat cx. ID consulted ID CONSULT DICTATED RECURRENT UTI R/O SEPSIS SECONDARY TO UTI CHRONIC R HN S/P URETERAL STENT AZOTEMIA PCN ALLERGY REPEAT BC OBTAINED PENDING C/S EMPIRIC VANCOMYCIN ADJUSTED FOR RENAL FAILURE ASSESSMENT/PLAN: 78 y/o F with PMH HTN, CHF, GERD, hypothyroidism, anemia, asthma, AV leak, " hole in heart," L atrophic kidney, R UPJ obstruction s/p stent placement removal 05/31/15, with recent discharge after pt presented with hematuria and treated with levaquin for UTI, presents to the ED after she was called in with + blood cx. #UTI w/gram + bacteremia -possible blood cx is + from ucx for +b hemolytic strep, c+s pending -currently afebrile, without leukocytosis. with resolved hematuria since last admission -PCN allergic -s/p vanco 1g IVPB qd (Cr clearance:21) x1 d/w ID -f/u ucx -bcx neg -ID consult: Dr. Lu -R stent exchange by Dr. Pinzon outpt once infection has cleared -iso precautions: hx VRE #CKD -at baseline renal fnc, improved since past admission -was evaluated by nephro on previous visit #hx diastolic CHF -without hx recent ECHO in system however had ECHO [address] Cordova -hold torsemide for now in lieu of IVF #Hypothyroidism -c/w synthroid #HTN-controlled -c/w bystolic, procardia #F/E/N no IVF needed at this time continue to follow lytes na controlled diet #PPX DVT: SQH GI: on protonix #Dispo admit to med-surg
[2018-09-02 08:58] LABS: ANION GAP 5 MMOL/L (8-16); BLOOD UREA NITROGEN 37 mg/dL (7-18); CALCIUM 8.3 mg/dL (8.5-10.1); CHLORIDE 105 mmol/L (98-107); CO2 28 mmol/L (21-32); CREATININE 2.3 mg/dL (0.55-1.3); GLUCOSE,RANDOM 89 mg/dL (74-106); POTASSIUM 4.5 mmol/L (3.5-5.1); SODIUM 138 mmol/L (136-145)
--- NOTE | 2018-09-02 10:01 | PN ---
Teaching Attending Note Name of Resident: Bao Gilbert ATTENDING PHYSICIAN STATEMENT I saw and evaluated the patient. I reviewed the resident's note and discussed the case with the resident. I agree with the resident's findings and plan as documented. SUBJECTIVE:asymptomatic. 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 pt was called back to the hospital due to +BCx 1. Bacteremia-showing strep sangius in 1 bottle from last admission, repeat BCx are negative. will d/w ID about appropriate abx if necessary. received vanco x1 dose. level is above therapeutic range. will not likely require vanco going forward. 2. UPJ obstruction- s/p R stent placement. plan for replacement after infection clears by urology 3. CKD- at baseline 4. Hypothyroid- cont LT4 5. HTN- controlled. resume home medications 6. DVT ppx- hep sq 7. anticipate discharge in next 24-48H
[2018-09-02] MEDS: PANTOPRAZOLE 20 MG TABLET (FP) PO SCH (10:22)
[2018-09-02] MEDS: TORSEMIDE 20 MG TABLET (FP) PO SCH (10:22)
[2018-09-02] MEDS: FERROUS SO4 325 MG TABLET (FP) PO SCH (10:22)
[2018-09-02 11:27] VITALS: BP 124/54; PULSE 69; TEMP 98.1
--- NOTE | 2018-09-02 13:04 | PN ---
Progress Note, Physician History of Present Illness: AWAKE OOB IN CHAIR NON TOXIC APPEARING NO C/O DYSURIA AFEBRILE WBC WNL BC VIRIDANS STREP X 1 BOTTLE REPEAT BC (-) - Current Medication List Current Medications: Active Medications Escitalopram Oxalate (Lexapro -) 20 mg PO [facility] Last Admin: 09/01/18 21:58 Dose: 20 mg Ferrous Sulfate (Feosol -) 325 mg PO DAILY@0800 [facility] Last Admin: 09/02/18 10:22 Dose: 325 mg Heparin Sodium (Porcine) (Heparin -) 5,000 unit SQ TID [facility] Last Admin: 09/02/18 06:15 Dose: 5,000 unit Levothyroxine Sodium (Synthroid -) 50 mcg PO DAILY@0700 [facility] Last Admin: 09/02/18 06:15 Dose: 50 mcg Nebivolol (Bystolic -) 20 mg PO [facility] Last Admin: 09/01/18 21:57 Dose: 20 mg Nifedipine (Procardia Xl -) 30 mg PO [facility] Last Admin: 09/01/18 21:58 Dose: 30 mg Pantoprazole Sodium (Protonix -) 20 mg PO DAILY [facility] Last Admin: 09/02/18 10:22 Dose: 20 mg Torsemide (Demadex -) 20 mg PO DAILY [facility] Last Admin: 09/02/18 10:22 Dose: 20 mg - Objective Vital Signs: Vital Signs Temperature 98.1 F 09/02/18 10:00 Pulse Rate 69 09/02/18 10:00 Respiratory Rate 18 09/02/18 10:00 Blood Pressure 124/54 L 09/02/18 10:00 O2 Sat by Pulse Oximetry (%) 98 09/01/18 21:00 Constitutional: Yes: No Distress Eyes: Yes: Conjunctiva Clear Cardiovascular: Yes: Regular Rate and Rhythm, S1, S2 Respiratory: Yes: CTA Bilaterally Gastrointestinal: Yes: Normal Bowel Sounds, Soft. 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
[2018-09-02] MEDS ORDERED: CEFUROXIME AXETIL 250 MG TABLET PO SCH (13:15)
--- NOTE | 2018-09-02 13:30 | DS ---
Physical Exam: SUBJECTIVE: Patient seen and examined at bedside. no acute events overnight. asymptomatic. denies CP, SOB< fever, chills, N/V/C/D, hematuria, dysuria OBJECTIVE: Vital Signs Period Temp Pulse Resp BP Sys/Rashid Pulse Ox Last 24 Hr 97.7 F-98.3 F 64-97 18-20 116-142/54-73 98 PHYSICAL EXAM GENERAL: Pleasant. Awake, alert, and fully oriented, in no acute distress. HEAD: Normal with no signs of trauma. EYES: Pupils equal, round and reactive to light, extraocular movements intact, sclera anicteric, conjunctiva clear. EARS, NOSE, THROAT: nares patent, oropharynx clear without exudates. Moist mucous membranes. NECK: Normal range of motion, supple LUNGS: CTAB HEART: Regular rate and rhythm, normal S1 and S2 without murmur, rub or gallop. ABDOMEN: Soft, nontender, not distended, normoactive bowel sounds, no guarding, no rebound, no masses. No suprapubic tenderness. MUSCULOSKELETAL: No CVA tenderness. LOWER EXTREMITIES: 2+ pt pulses, warm, well-perfused. No calf tenderness. No peripheral edema. NEUROLOGICAL: Cranial nerves II-XII intact. Normal speech. Normal gait. PSYCHIATRIC: Cooperative. Good eye contact. Appropriate mood and affect. SKIN: Warm, dry LABS Laboratory Results - last 24 hr 09/02/18 09/02/18 08:10 08:10 Sodium 138 Potassium 4.5 Chloride 105 Carbon Dioxide 28 Anion Gap 5 L BUN 37 H Creatinine 2.3 H Creat Clearance w eGFR 20.62 Random Glucose 89 Calcium 8.3 L Random Vancomycin 17.1 L Micro 08/29/18: Ucx: +b hemolytic strep 08/29/18: Blood cx: gram + cocci in chains HOSPITAL COURSE: Date of Admission:08/31/18 Date of Discharge: 09/02/18 78 y/o F with PMH HTN, CHF, GERD, hypothyroidism, anemia, asthma, AV leak, " hole in heart," L atrophic kidney, R UPJ obstruction s/p stent placement removal 05/31/15, with recent discharge after pt presented with hematuria and treated with levaquin for UTI, presents to the ED after she was called in with + blood cx. Admitted/called back to the hospital for concern of possible gram + bacteremia in setting of currently resolving UTI. afebrile, without leukocytosis. with resolved hematuria since last admission. ID consulted: Dr. Lu. showing strep sangius in 1 bottle bcx from last admission. received vanco x1 dose per ID recs at admission. Today repeat Ucx, BCx 08/31/18 are negative. pt will be dcd w/ ceftin 250mg bid x7d, ID recs appreciated. pt is currently afebrile, hemodynamically stable, Cr stable, H/H stable. Per Urology, plan for stent exchange next week as outpt after infection has cleared. pt stable and ready for dc w/ appropriate f/u Minutes to complete discharge: 39 Discharge Summary Reason For Visit: BACTEREMIA Current Active Problems Sepsis (Acute) Condition: Stable - Instructions Diet, Activity, Other Instructions: you were recently here with urinary tract infection and blood in your urine. we gave you antibiotics at that time which helped your symptoms and resolved your blood in your urine. We discharged you but unfortunately had to call you back to the hospital because your blood cultures were growing bacteria. your blood cultures came back negative, however we will discharge you with 7 days of antibiotic ceftin 250mg twice a day to help clear any residual infection. We spoke with your urologist Dr. Pinzon and he said you should follow up in the office within 1 week/when your infection has cleared, to have your kidney stent removed Please resume your home meds Please follow up with your primary care physician within 1 week Please follow up with manager express Dr. Marr within 1 week Please follow up with urologist within 1 week for kidney stent removal Please follow up with Infectious disease Dr. Lu within 1 week If you experieince any more blood in your urine, abdominal pain, fevers, chills , burning on urination, shortness of breath, nausea, vomit, please call 911 or go to the ER Referrals: Arjun Lu MD [Staff Physician] - 1 Week Jerry Pinzon MD [Staff Physician] - 1 Week Hay Marr MD [Staff Physician] - 1 Week Disposition: HOME - Home Medications Comprehensive Discharge Medication List: Ambulatory Orders Escitalopram Oxalate [Lexapro -] 20 mg PO HS 12/25/17 Levothyroxine [Synthroid -] 50 mcg PO DAILY 12/25/17 Nebivolol HCl [Bystolic] 20 mg PO HS 12/25/17 Nifedipine [Procardia Xl] 30 mg PO HS 12/25/17 Torsemide 20 mg PO DAILY 12/25/17 Ferrous Sulfate [Iron] 325 mg PO HS 03/01/18 Pantoprazole Sodium [Protonix -] 20 mg PO DAILY 08/31/18 Cefuroxime Axetil [Ceftin -] 250 mg PO BID 7 Days #14 tablet 09/02/18 This patient is new to me today: Yes Date on this admission: 09/02/18 Emergency Visit: Yes ED Registration Date: 08/31/18 Care time: The patient presented to the Emergency Department on the above date and was hospitalized for further evaluation of their emergent condition. Critical Care patient: No - Discharge Referral Referred to [facility] Med P.C.: No
[2018-09-02] MEDS ORDERED: PT OWN MED DRAWER 7, Y5N ONE (14:53)
== END 2018-09-02 15:38 | disposition home or self-care (01) | DRG 690 ==
LOC: JER 16:26 → JERBED 18:44 → OBSVTOIN 19:44 → J8W 21:06
PROVIDERS: ADMIT Internal Medicine; ATTEND Internal Medicine
DX: N39.0 Urinary tract infection, site not specified (principal); I13.0 Hypertensive heart and chronic kidney disease with heart failure and stage 1 through stage 4 chronic kidney disease, or unspecified chronic kidney disease; I50.32 Chronic diastolic (congestive) heart failure; N18.4 Chronic kidney disease, stage 4 (severe); K21.9 Gastro-esophageal reflux disease without esophagitis; Z88.0 Allergy status to penicillin; E03.9 Hypothyroidism, unspecified; D64.9 Anemia, unspecified; J45.909 Unspecified asthma, uncomplicated; D63.1 Anemia in chronic kidney disease
CPT/HCPCS: 36415; 80048; 80053; 81003; 83735; 84100; 85025; 85610; 87040; 87086; 99282-25; G0378; G0480; J1644

== ENCOUNTER 2018-10-02 10:29 | Day surgery (SDC) | payer BC ==
[2018-10-01 16:40] VITALS: BMI 29.9
[2018-10-02] MEDS ORDERED: LIDOCAINE HCL/PF 2% SDV 5ML VIAL ONE (11:57)
[2018-10-02] MEDS ORDERED: PROPOFOL 20 ML ONE (11:57)
[2018-10-02] MEDS ORDERED: ACETAMINOPHEN 1000 MG/100 ML VIAL (NON FORMULARY) IVPB ONE (12:23)
--- NOTE | 2018-10-02 12:24 | HP ---
History & Physical Update - History History: No Change - Physical Physical: No Change - Assessment Assessment: No Change - Plan Plan: No Change
[2018-10-02] MEDS ORDERED: DEXTROSE 5%-0.45% SALINE 1,000 ML IV SCH (12:30)
[2018-10-02] MEDS ORDERED: IBUPROFEN 800 MG/8 ML IJ IVPB SCH (12:30)
[2018-10-02] MEDS ORDERED: ceFAZolin SODIUM 1 GM VIAL ONE (12:43)
[2018-10-02] MEDS ORDERED: ceFAZolin SODIUM 1 GM VIAL IVPB ONE (12:46)
[2018-10-02] MEDS ORDERED: IOHEXOL 300 MG/ML INFUS..BTL IV ONE (12:52)
[2018-10-02] MEDS ORDERED: ACETAMINOPHEN INJECTION 100 ML IVPB ONE (13:51)
[2018-10-02] MEDS ORDERED: ACETAMINOPHEN 500 MG TABLET (FP) PO PRN (15:07)
[2018-10-02] MEDS ORDERED: ONDANSETRON 4 MG/2 ML VIAL IVPUSH PRN (15:07)
[2018-10-02 15:10] LABS: BASO % 0.3 % (0-2.0); EOS % 0.5 % (0-4.5); HEMATOCRIT 35.2 % (32.4-45.2); HEMOGLOBIN 11.6 GM/dL (10.7-15.3); MCHC 32.8 g/dl (32.0-36.0); MEAN CELL VOLUME 91.4 fl (80-96); MEAN PLT VOLUME 8.7 fl (7.5-11.1); NEUT % 76.2 % (42.8-82.8); PLATELET COUNT 216 K/MM3 (134-434); RBC 3.85 M/mm3 (3.60-5.2); RDW 14.7 % (11.6-15.6); WHITE BLOOD COUNT 6.9 K/mm3 (4.0-10.0)
[2018-10-02] MEDS ORDERED: LACTATED RINGERS SOLUTION 1,000 ML IV SCH (15:15)
[2018-10-02 15:38] LABS: ANION GAP 7 MMOL/L (8-16); BLOOD UREA NITROGEN 36 mg/dL (7-18); CALCIUM 8.9 mg/dL (8.5-10.1); CHLORIDE 105 mmol/L (98-107); CO2 28 mmol/L (21-32); CREATININE 2.5 mg/dL (0.55-1.3); GLUCOSE,RANDOM 89 mg/dL (74-106); SODIUM 140 mmol/L (136-145)
[2018-10-02 17:37] VITALS: BP 128/59; PULSE 70; TEMP 97.9
--- NOTE | 2018-10-04 10:44 | PATH ---
Surgical Pathology Report Patient Name: CLAY RAZA Med. Rec. #: [id number] /Age/Gender: 1940 (Age: 78) / F Account: [id number] Location: AMBULATORY SURG Taken: 10/02/2018 Received: 10/03/2018 Reported: 10/04/2018 Physicians: Jerry Pinzon M.D. Specimen(s) Received RIGHT URETERAL STENT Clinical History Right hydronephrosis Final Diagnosis URETERAL STENT, RIGHT, REMOVAL: CONSISTENT WITH URETERAL STENT. MACROSCOPIC DIAGNOSIS. Electronically Signed Heidy Zepeda M.D. Gross Description Received fresh "right ureteral stent" is a silver metallic coiled stent consistent with a ureteral stent, which measures 30 cm in length. No soft tissue present, for gross examination only. MLSZ/10/03/2018 sanml/10/03/2018
--- NOTE | 2018-10-18 18:34 | OP ---
DATE OF OPERATION: 10/02/2018 PREOPERATIVE DIAGNOSIS: Right ureteropelvic junction obstruction. POSTOPERATIVE DIAGNOSIS: Right ureteropelvic junction obstruction. PROCEDURE: Exchange of right ureteral stent and retrograde pyelogram. SURGEON: Jerry Pinzon MD ESTIMATED BLOOD LOSS: Minimal. DRAINS: A 24 x 6 double-J ureteral stent. PREOPERATIVE INDICATIONS: Patient is a 78-year-old woman with a history of right UPJ obstruction. She has been managed with a chronic indwelling stent over several years to prevent infection and pain. She comes in now for her scheduled ureteral stent change. More recently, she has been complaining of gross hematuria. DESCRIPTION OF PROCEDURE: Patient was brought to the OR and placed on the table in the supine position, given general anesthesia and IV antibiotics and placed in the modified lithotomy position. The groin was prepped and draped sterilely. Cystoscopy was performed. The above stent was seen emerging from the right ureteral orifice and it was removed without difficulty. At this point, a wire was passed up the ureter, but could not be passed all of the way up to the kidney. Urostomy was performed to aid in passing the wire into the right kidney. There was a lot of inflammatory tissue within the ureter. This was reflected by a retrograde pyelogram, which appeared to have mass within the upper ureter. Ultimately a 6 x 24 double-J ureteral stent was passed over the wire. This wire was removed. Some hematuria was seen emerging from the right kidney. Patient remained stable. Patient was woken up. Caity [id number]
== END 2018-10-02 17:40 | disposition home or self-care (01) ==
LOC: JASUSAT 10:29 → JASU-SURG 10:29 → JASUSAT 17:40
PROVIDERS: ATTEND Urology
PROC: 0T9680Z Drainage of Right Ureter with Drainage Device, Via Natural or Artificial Opening Endoscopic (ICD-10-PCS; principal; 2018-10-02 12:00)
PROC: BT1DZZZ Fluoroscopy of Right Kidney, Ureter and Bladder (ICD-10-PCS; 2018-10-02 12:00)
DX: N13.5 Crossing vessel and stricture of ureter without hydronephrosis (principal)
CPT/HCPCS: 36415; 74176-TC; 76000-TC-FY; 80048; 85025; 88300-TC; 94760; J0131